=== PATIENT | male | born 1950 | race Caucasian/White ===

== ENCOUNTER 2021-03-25 08:33 | Outpatient (REF) | payer MEDICARE, SELFPAY ==
[2021-03-25 16:38] LABS: Abs Immature Grans 0.04 10^3/uL (0.0-0.06); Absolute Basophil Count 0.01 10^3/uL (0.0-0.2); Absolute Eosinophil Count 0.04 10^3/uL (0.0-0.7); Absolute Lymphocyte Count 1.03 10^3/uL (1.2-3.4); Absolute Monocyte Count 0.61 10^3/uL (0.1-0.8); Absolute Neutrophil Count 7.84 10^3/uL (1.2-6.7); Basophils % 0.1; Eosinophils % 0.4; HCT 45.5 % (40.0-50.0); Immature Grans % 0.4; Lymphocytes % 10.8; MCV 87.8 fL (80-95); Monocytes % 6.4; Neutrophils % 81.9; Nucleated RBC 0 %; Platelet Count 276 10^3/uL (130-400); RBC 5.18 10^6/uL (4.36-5.78); RDW 12.3 % (11.8-14.1); RDW-SD 40.1 fL; WBC 9.57 10^3/uL (4.4-10.8)
[2021-03-25 16:41] LABS: ALT 265 U/L (16-63); AST 87 U/L (15-37); Albumin 2.9 g/dL (3.4-5.0); Alkaline Phosphatase 76 U/L (46-116); Anion Gap 7.1 mmol/L (3-11); BUN 33 mg/dL (7-18); Bilirubin, Total 0.7 mg/dL (0.2-1.0); CO2 32.9 mmol/L (21.0-32.0); CREATININE 1.4 mg/dL (0.70-1.30); Calcium 8.7 mg/dL (8.5-10.1); Chloride 99 mmol/L (98-107); Glucose 165 mg/dL (74-106); Magnesium 1.9 mg/dL (1.8-2.4); Potassium 3.4 mmol/L (3.5-5.1); Sodium 139 mmol/L (136-145); Total Protein 6.2 g/dL (6.4-8.2)
== END 2021-03-26 09:09 | disposition home or self-care (01) ==
LOC: LBN 08:33
PROVIDERS: PCP Nurse Practitioner Family; Visit Provider Nurse Practitioner Family
DX: C02.9 Malignant neoplasm of tongue, unspecified (principal)
CPT/HCPCS: 80053; 83735; 85025

== ENCOUNTER 2021-04-01 02:53 | Outpatient (RCR) | payer MEDICARE, SELFPAY ==
[2021-03-21] MEDS: Normal Saline Flush 10 ML SYR IVP ×2 (09:41→14:00)
[2021-03-21 09:46] LABS: Abs Immature Grans 0.03 10^3/uL (0.0-0.06); Absolute Basophil Count 0.04 10^3/uL (0.0-0.2); Absolute Eosinophil Count 0.09 10^3/uL (0.0-0.7); Absolute Lymphocyte Count 1.23 10^3/uL (1.2-3.4); Absolute Monocyte Count 1.03 10^3/uL (0.1-0.8); Absolute Neutrophil Count 10.95 10^3/uL (1.2-6.7); Basophils % 0.3; Eosinophils % 0.7; HCT 47.3 % (40.0-50.0); HGB 15.9 g/dL (13.5-17.5); Immature Grans % 0.2; Lymphocytes % 9.2; MCH 28.9 pg (27.0-33.0); MCHC 33.6 % (32.0-36.0); MCV 85.8 fL (80-95); MPV 9.7 fL (8.0-11.0); Monocytes % 7.7; Neutrophils % 81.9; Nucleated RBC 0 %; Platelet Count 310 10^3/uL (130-400); RBC 5.51 10^6/uL (4.36-5.78); RDW 12.4 % (11.8-14.1); RDW-SD 38.8 fL; WBC 13.37 10^3/uL (4.4-10.8)
[2021-03-21 09:51] LABS: ALT 87 U/L (16-63); AST 41 U/L (15-37); Albumin 3.3 g/dL (3.4-5.0); Alkaline Phosphatase 82 U/L (46-116); Anion Gap 3.4 mmol/L (3-11); BUN 18 mg/dL (7-18); Bilirubin, Total 0.9 mg/dL (0.2-1.0); CO2 32.6 mmol/L (21.0-32.0); CREATININE 1.3 mg/dL (0.70-1.30); Calcium 9.9 mg/dL (8.5-10.1); Chloride 101 mmol/L (98-107); Estimated GFR 54.57 (mL/min/1.73m2); Glucose 126 mg/dL (74-106); Magnesium 2.2 mg/dL (1.8-2.4); Potassium 4.1 mmol/L (3.5-5.1); Sodium 137 mmol/L (136-145); Total Protein 7.2 g/dL (6.4-8.2)
[2021-04-01] MEDS: Normal Saline Flush 10 ML SYR IVP (09:04)
[2021-04-01 09:13] LABS: Abs Immature Grans 0.02 10^3/uL (0.0-0.06); Absolute Basophil Count 0.01 10^3/uL (0.0-0.2); Absolute Eosinophil Count 0.01 10^3/uL (0.0-0.7); Absolute Lymphocyte Count 0.72 10^3/uL (1.2-3.4); Absolute Monocyte Count 0.45 10^3/uL (0.1-0.8); Absolute Neutrophil Count 5.77 10^3/uL (1.2-6.7); Basophils % 0.1; Eosinophils % 0.1; HCT 44.3 % (40.0-50.0); HGB 14.8 g/dL (13.5-17.5); Immature Grans % 0.3; Lymphocytes % 10.3; MCH 29.1 pg (27.0-33.0); MCHC 33.4 % (32.0-36.0); MCV 87.2 fL (80-95); MPV 9.3 fL (8.0-11.0); Monocytes % 6.4; Neutrophils % 82.8; Nucleated RBC 0 %; Platelet Count 202 10^3/uL (130-400); RBC 5.08 10^6/uL (4.36-5.78); RDW 12.1 % (11.8-14.1); WBC 6.98 10^3/uL (4.4-10.8)
[2021-04-01 09:29] LABS: ALT 733 U/L (16-63); AST 220 U/L (15-37); Albumin 3.1 g/dL (3.4-5.0); Alkaline Phosphatase 80 U/L (46-116); Anion Gap 8.4 mmol/L (3-11); BUN 27 mg/dL (7-18); Bilirubin, Total 0.9 mg/dL (0.2-1.0); CO2 32.6 mmol/L (21.0-32.0); CREATININE 1.8 mg/dL (0.70-1.30); Calcium 8.7 mg/dL (8.5-10.1); Chloride 100 mmol/L (98-107); Estimated GFR 37.49 (mL/min/1.73m2); Glucose 110 mg/dL (74-106); Magnesium 1.3 mg/dL (1.8-2.4); Potassium 3.5 mmol/L (3.5-5.1); Sodium 141 mmol/L (136-145); Total Protein 6.5 g/dL (6.4-8.2)
== END 2021-04-03 23:59 | disposition home or self-care (01) ==
LOC: INF 02:53
PROVIDERS: Visit Provider Nurse Practitioner Family
DX: C02.9 Malignant neoplasm of tongue, unspecified (principal); Z45.2 Encounter for adjustment and management of vascular access device
CPT/HCPCS: 36591; 80053; 83735; 85025

== ENCOUNTER 2021-04-29 01:36 | Outpatient (RCR) | payer MEDICARE, SELFPAY ==
[2021-04-09 07:35] LABS: Abs Immature Grans 0.03 10^3/uL (0.0-0.06); Absolute Basophil Count 0.01 10^3/uL (0.0-0.2); Absolute Lymphocyte Count 0.32 10^3/uL (1.2-3.4); Absolute Monocyte Count 0.35 10^3/uL (0.1-0.8); Absolute Neutrophil Count 7.07 10^3/uL (1.2-6.7); Basophils % 0.1; HCT 41.1 % (40.0-50.0); HGB 13.7 g/dL (13.5-17.5); Immature Grans % 0.4; Lymphocytes % 4.1; MCHC 33.3 % (32.0-36.0); MCV 86.9 fL (80-95); MPV 9.4 fL (8.0-11.0); Monocytes % 4.5; Neutrophils % 90.9; Nucleated RBC 0 %; Platelet Count 175 10^3/uL (130-400); RBC 4.73 10^6/uL (4.36-5.78); RDW 12.8 % (11.8-14.1); RDW-SD 39.8 fL; WBC 7.78 10^3/uL (4.4-10.8)
[2021-04-09 07:50] LABS: ALT 325 U/L (16-63); AST 78 U/L (15-37); Albumin 2.9 g/dL (3.4-5.0); Alkaline Phosphatase 98 U/L (46-116); Anion Gap 9.9 mmol/L (3-11); BUN 19 mg/dL (7-18); Bilirubin, Total 1.2 mg/dL (0.2-1.0); CO2 31.1 mmol/L (21.0-32.0); CREATININE 1.5 mg/dL (0.70-1.30); Calcium 8.6 mg/dL (8.5-10.1); Chloride 100 mmol/L (98-107); Estimated GFR 46.27 (mL/min/1.73m2); Glucose 210 mg/dL (74-106); Magnesium 1.3 mg/dL (1.8-2.4); Potassium 3.4 mmol/L (3.5-5.1); Sodium 141 mmol/L (136-145); Total Protein 6.5 g/dL (6.4-8.2)
[2021-04-09] MEDS: Normal Saline Flush 10 ML SYR IVP (07:58)
[2021-04-15] MEDS: Normal Saline Flush 10 ML SYR IVP (10:12)
[2021-04-15 10:41] LABS: Abs Immature Grans 0.01 10^3/uL (0.0-0.06); Absolute Basophil Count 0.01 10^3/uL (0.0-0.2); Absolute Eosinophil Count 0.01 10^3/uL (0.0-0.7); Absolute Lymphocyte Count 0.35 10^3/uL (1.2-3.4); Absolute Neutrophil Count 1.36 10^3/uL (1.2-6.7); Basophils % 0.5; Eosinophils % 0.5; HCT 37.6 % (40.0-50.0); HGB 12.9 g/dL (13.5-17.5); Immature Grans % 0.5; Lymphocytes % 17.2; MCH 29.3 pg (27.0-33.0); MCHC 34.3 % (32.0-36.0); MCV 85.5 fL (80-95); MPV 9.4 fL (8.0-11.0); Monocytes % 14.7; Neutrophils % 66.6; Nucleated RBC 0 %; Platelet Count 171 10^3/uL (130-400); RDW 13.2 % (11.8-14.1); RDW-SD 38.7 fL; WBC 2.04 10^3/uL (4.4-10.8)
[2021-04-15 11:04] LABS: ALT 210 U/L (16-63); AST 69 U/L (15-37); Alkaline Phosphatase 93 U/L (46-116); Anion Gap 9.5 mmol/L (3-11); BUN 17 mg/dL (7-18); Bilirubin, Total 0.8 mg/dL (0.2-1.0); CO2 32.5 mmol/L (21.0-32.0); CREATININE 1.2 mg/dL (0.70-1.30); Calcium 8.8 mg/dL (8.5-10.1); Chloride 100 mmol/L (98-107); Estimated GFR 59.86 (mL/min/1.73m2); Glucose 110 mg/dL (74-106); Magnesium 1.2 mg/dL (1.8-2.4); Potassium 3.4 mmol/L (3.5-5.1); Sodium 142 mmol/L (136-145); Total Protein 6.5 g/dL (6.4-8.2)
[2021-04-22 10:18] LABS: Abs Immature Grans 0.02 10^3/uL (0.0-0.06); Absolute Basophil Count 0.02 10^3/uL (0.0-0.2); Absolute Eosinophil Count 0.01 10^3/uL (0.0-0.7); Absolute Lymphocyte Count 0.26 10^3/uL (1.2-3.4); Absolute Monocyte Count 0.32 10^3/uL (0.1-0.8); Absolute Neutrophil Count 1.98 10^3/uL (1.2-6.7); Basophils % 0.8; Eosinophils % 0.4; HCT 36.5 % (40.0-50.0); HGB 12.6 g/dL (13.5-17.5); Immature Grans % 0.8; MCH 29.6 pg (27.0-33.0); MCHC 34.5 % (32.0-36.0); MCV 85.9 fL (80-95); MPV 9.2 fL (8.0-11.0); Monocytes % 12.3; Neutrophils % 75.7; Nucleated RBC 0 %; Platelet Count 239 10^3/uL (130-400); RBC 4.25 10^6/uL (4.36-5.78); RDW 14.2 % (11.8-14.1); RDW-SD 41.8 fL; WBC 2.61 10^3/uL (4.4-10.8)
[2021-04-22 10:36] LABS: ALT 122 U/L (16-63); AST 40 U/L (15-37); Alkaline Phosphatase 89 U/L (46-116); Anion Gap 7.6 mmol/L (3-11); BUN 12 mg/dL (7-18); Bilirubin, Total 0.8 mg/dL (0.2-1.0); CO2 32.4 mmol/L (21.0-32.0); CREATININE 1.1 mg/dL (0.70-1.30); Calcium 8.8 mg/dL (8.5-10.1); Chloride 100 mmol/L (98-107); Glucose 127 mg/dL (74-106); Magnesium 1.3 mg/dL (1.8-2.4); Potassium 3.2 mmol/L (3.5-5.1); Sodium 140 mmol/L (136-145); Total Protein 6.7 g/dL (6.4-8.2)
[2021-04-22] MEDS: Normal Saline Flush 10 ML SYR IVP (10:47)
[2021-04-29] MEDS: Normal Saline Flush 10 ML SYR IVP (09:20)
[2021-04-29 09:27] LABS: Abs Immature Grans 0.03 10^3/uL (0.0-0.06); Absolute Basophil Count 0.02 10^3/uL (0.0-0.2); Absolute Lymphocyte Count 0.27 10^3/uL (1.2-3.4); Absolute Monocyte Count 0.63 10^3/uL (0.1-0.8); Absolute Neutrophil Count 2.43 10^3/uL (1.2-6.7); Basophils % 0.6; HCT 35.6 % (40.0-50.0); HGB 12.3 g/dL (13.5-17.5); Immature Grans % 0.9; MCH 29.8 pg (27.0-33.0); MCHC 34.6 % (32.0-36.0); MCV 86.2 fL (80-95); Monocytes % 18.6; Neutrophils % 71.9; Nucleated RBC 0 %; Platelet Count 248 10^3/uL (130-400); RBC 4.13 10^6/uL (4.36-5.78); RDW 15.6 % (11.8-14.1); RDW-SD 47.1 fL; WBC 3.38 10^3/uL (4.4-10.8)
[2021-04-29 09:46] LABS: ALT 95 U/L (16-63); AST 28 U/L (15-37); Albumin 2.8 g/dL (3.4-5.0); Alkaline Phosphatase 85 U/L (46-116); Anion Gap 7.2 mmol/L (3-11); BUN 13 mg/dL (7-18); Bilirubin, Total 0.9 mg/dL (0.2-1.0); CO2 34.8 mmol/L (21.0-32.0); Calcium 8.9 mg/dL (8.5-10.1); Chloride 99 mmol/L (98-107); Glucose 134 mg/dL (74-106); Magnesium 1.2 mg/dL (1.8-2.4); Sodium 141 mmol/L (136-145); Total Protein 6.6 g/dL (6.4-8.2)
[2021-04-29 10:00] LABS: Potassium 2.9 mmol/L (3.5-5.1)
== END 2021-05-04 23:59 | disposition home or self-care (01) ==
LOC: INF 01:36
PROVIDERS: PCP Nurse Practitioner Family; Visit Provider Nurse Practitioner Family
DX: C02.9 Malignant neoplasm of tongue, unspecified (principal); Z45.2 Encounter for adjustment and management of vascular access device
CPT/HCPCS: 36591; 80053; 83735; 85025

== ENCOUNTER 2021-05-13 03:00 | Outpatient (RCR) | payer MEDICARE, SELFPAY ==
[2021-05-06 09:10] LABS: Abs Immature Grans 0.03 10^3/uL (0.0-0.06); Absolute Basophil Count 0.03 10^3/uL (0.0-0.2); Absolute Lymphocyte Count 0.34 10^3/uL (1.2-3.4); Absolute Monocyte Count 0.65 10^3/uL (0.1-0.8); Absolute Neutrophil Count 4.63 10^3/uL (1.2-6.7); Basophils % 0.5; HCT 36.1 % (40.0-50.0); HGB 12.1 g/dL (13.5-17.5); Immature Grans % 0.5; MCH 29.4 pg (27.0-33.0); MCHC 33.5 % (32.0-36.0); MCV 87.6 fL (80-95); Monocytes % 11.4; Neutrophils % 81.6; Nucleated RBC 0 %; Platelet Count 170 10^3/uL (130-400); RBC 4.12 10^6/uL (4.36-5.78); RDW 16.3 % (11.8-14.1); RDW-SD 50.7 fL; WBC 5.68 10^3/uL (4.4-10.8)
[2021-05-06] MEDS: Normal Saline Flush 10 ML SYR IVP (09:15)
[2021-05-06 09:31] LABS: ALT 81 U/L (16-63); AST 35 U/L (15-37); Albumin 2.8 g/dL (3.4-5.0); Alkaline Phosphatase 79 U/L (46-116); Anion Gap 9.8 mmol/L (3-11); BUN 13 mg/dL (7-18); Bilirubin, Total 0.8 mg/dL (0.2-1.0); CO2 31.2 mmol/L (21.0-32.0); Calcium 8.2 mg/dL (8.5-10.1); Chloride 101 mmol/L (98-107); Glucose 96 mg/dL (74-106); Magnesium 1.2 mg/dL (1.8-2.4); Potassium 3.4 mmol/L (3.5-5.1); Sodium 142 mmol/L (136-145); Total Protein 6.5 g/dL (6.4-8.2)
== END 2021-06-04 23:59 | disposition home or self-care (01) ==
LOC: INF 03:00
PROVIDERS: PCP Nurse Practitioner Family; Visit Provider Nurse Practitioner Family
DX: C01 Malignant neoplasm of base of tongue (principal); Z45.2 Encounter for adjustment and management of vascular access device
CPT/HCPCS: 36591; 80053; 83735; 85025

== ENCOUNTER 2021-07-08 11:08 | Inpatient (IN) | payer MEDICARE, SELFPAY ==
[2021-07-08] VITALS (94 sets, daily range): BP systolic 79–159; BP diastolic 51–93; PULSE 72–113; RESP 5–32; TEMP 36.3–36.6; O2SAT 77–100
--- NOTE | 2021-07-08 | DI.RAD_ITS ---
Exam(s) XR PORTABLE CHEST AP EXAM: XR PORTABLE CHEST AP CLINICAL HISTORY: leucocytosis, concern for aspiration PNA TECHNIQUE: 2D digital imaging was performed of the chest. Two images were obtained. AP views were o btained. COMPARISON: No exams were available for comparison FINDINGS: MEDIASTINUM: Normal. HEART: Normal. PULMONARY VASCULATURE: Normal. LUNGS: Clear. PLEURAL SPACE: No pleural effusion or pneumothorax. BONE:Within normal limits for the patient's age. OTHER FINDINGS:The tip of the MediPort catheter is in good position at the junction of the superior v eliseo cava and right atrium. IMPRESSION: No acute pulmonary findings. DATA REPOSITORY: RADIATION DOSE DELIVERED:
--- NOTE | 2021-07-08 11:15 | RT.EKG_ITS ---
APPROVED REPORT Exam: Resting ECG Reason for Exam: fatigue Patient Location: E HR:97 bpm ECG Measurements Heart Rate 97 AXIS DE 163 P 62 QRSd 139 QRS -80 QT 380 T 55 QTc 484 Conclusion Sinus rhythm...normal P axis, V-rate 60- 99 RBBB and LAFB...QRSd >120mS, axis(-40,240) ST elevation secondary to IVCD...Multiple VCG criteria ST elevation, consider inferior injury...ST >0.08mV, II III aVF I have reviewed and interpreted ECG and agree with software generated interpretation.
[2021-07-08] MEDS: Normal Saline-STERILE FIELD 0.9% 10 ML SYR (11:30)
--- NOTE | 2021-07-08 11:45 | W.ED.GENAD ---
Discharge Plan Disposition Patient Disposition: [facility] INPATIENT Discharge Details Clinical Impression: Hypokalemia, Hypernatremia, Hypercalcemia Admit Date/Time: 07/08/21 12:52 Admit Provider: Svetlana Stoner Attending Provider: Svetlana Stoner Primary Care Provider: Suzy Shepard ED Provider: Geri Pierce Discharge Data Discharge Date/Time-TO BE ENTERED AT DEPARTURE: 07/08/21 15:28 Medical Decision Making Guero Self is a 71-year-old man with history of tongue cancer for which he underwent chemoradiation 05/25 presenting to emergency department for lab abnormalities found on outpatient labs ordered by his oncologist, specifically hyponatremia and hypokalemia. On exam patient is chronically ill-appearing. His speech is garbled which is baseline for him. Benign cardiopulmonary exam. Concern for known electrolyte abnormalities on labs today of hyponatremia, hypercalcemia, hypokalemia. Plan for repeat labs, will treat hyponatremia with D5 water at 100 cc/h, treating hypercalcemia with calcitonin,, will replete potassium. Creatinine elevated, no need for emergent imaging, will hold CT scans at this time. Plan for admission. Labs reviewed, troponin 0 0.07. Patient without chest pain, shortness of breath. EKG shows no STEMI. Plan for admission and trend troponin, unclear significance given elevated creatinine. Medical Records Medical records reviewed: Yes I reviewed the patient's medical records. Lab Data Lab results reviewed: Yes I reviewed the patient's lab results. HPI General Mode of arrival: wheelchair. Date/Time Provider Initiated Documentation: 07/08/21 11:22. Limitations to Documentation: no limitations. Information obtained by: patient, family, RN notes reviewed and old records reviewed. HPI Narrative: Guero Self is a 71y/o man with history of tongue cancer status post chemoradiation 05/2021, status post G-tube presenting to emergency department for lab abnormalities. Patient had labs that ordered by oncology office that returned today, and patient was sent to the emergency department for hyponatremia and hypokalemia. Patient has G-tube in place and typically only takes water by mouth. Patient has a history of occultly with nausea and vomiting with full G-tube feeds, and only recently started to have a 2000 -calorie/day feeds per G-tube. Patient states that he coughed up a significant amount of thin white mucus, which has been ongoing for at least a month. Patient reports that he has had no further chemo or radiation since this past May. He reports pain in his neck that has been ongoing and unchanged for several months, denies any new pain. Denies fever, current nausea, vomiting, cough, shortness of breath, numbness, localized weakness, rash. He reports that he has felt much more generally weak than usual over the past week or so. Per patient's oncology office, they are concerned that patient may have metastatic disease, and are requesting that patient undergo CT neck/chest/abdomen/pelvis while admitted for his electrolyte derangements. Related Data Home Medications Medication Instructions Recorded Confirmed acetaminophen 500 mg capsule 500 mg PO Q6H PRN 03/21/21 07/08/21 gabapentin 300 mg tablet 300 mg PO DAILY 03/21/21 07/08/21 omeprazole magnesium 10 mg oral 20 mg PO BID #30 ea 04/09/21 07/08/21 suspension,delayed release scopolamine base 1 mg over 3 days 1 patch TRANSDERMAL Q3D #10 ea 04/09/21 07/08/21 transdermal patch ibuprofen [Advil] 600 mg PO PRN PRN 07/08/21 07/08/21 Previous Rx's Medication Instructions Recorded omeprazole magnesium 10 mg oral 20 mg PO BID #30 ea 04/09/21 suspension,delayed release scopolamine base 1 mg over 3 days 1 patch TRANSDERMAL Q3D #10 ea 04/09/21 transdermal patch Allergies Allergy/AdvReac Type Severity Reaction Status Date / Time Opioids - Morphine Analogues Allergy Verified 07/08/21 11:30 General Stated Complaint: GenMedical DILSHAD: 2 Review of Systems Narrative: Constitutional: denies fevers, reports generalized weakness, fatigue Eyes: denies eye pain ENT: denies ear pain, dental pain, reports throat/neck pain that is unchanged over the past few months Cardiovascular: denies chest pain Respiratory: denies SOB, cough GI: denies abdominal pain, vomiting, diarrhea : denies flank pain MSK: denies back pain, neck pain, arthralgias, myalgias Skin: denies rash Neuro: denies headaches, numbness, localized weakness PFSH Medical History Anxiety about health Cancer determined by biopsy of tongue Chemotherapy adverse reaction off cisplantin; then lower dose carboplantin Decreased appetite Dehydration Denial about severity of illness reported that he did not understand that tx might not cure him Drooling improved with scopolamine patch 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 Dysphagia can manage thin liquids, not much else orally has feeding tube; trying to get in >1 feed/day Elevated liver enzymes Former smoker Frequent falls Generalized weakness History of alcohol abuse sober since 1991 Hypotension Irritability and anger frustrated with duration of treatment; wants a break for oncology visits/phone calls/lab tests/imaging Neutropenia Oral pain tongue very sensitive pain also in jaw and ear, left side Tongue cancer does not want surgery under any circumstances accepting radiation and chemo Unintentional weight loss Uses feeding tube minimally using it says the feeds make him feel sick Vapes nicotine containing substance Surgical History History of laryngoscopy Family History Mother , in a care home; brandi unsure of her age at time of Dementia Father , age 53 of melanoma of his cheek/ face traumatic for Brandi who was young teen Melanoma Brother Heart disease Sister Breast cancer Daughter No problems noted. Grandson No problems noted. Social History Smoking/Tobacco Use Status: Former Tobacco Use tobacco type: cigarettes and e-cigarettes Quit Date: 03/08/21 Pack-years: 55 Tobacco: How many years used: 55 Second Hand Exposure: No Counseling given: other Details: quit vaping 2 wks before visit; quit cigs 10 yrs ago; quit chew 45 yrs ago Smoking risk assessment performed?: Yes Alcohol Intake: former Counseling given: No Details: started drinking age 5, quit age 42 Substance use type: does not use Caregiver/Support person: Yes Household members: significant other Housing: house Number of Children: 1 number of grandchildren: 1 Communication Needs: Hard of Hearing and Corrective Lenses Education Level: high school Do you need help understanding health information?: Often current occupation: works for [employer] at [employer]; hopes to return to work after tx Do you think of yourself as: straight/heterosexual Current gender identity: male What is your relationship status?: living with partner How often do you talk on the phone with friends or family?: never How often do you get together with friends or relatives?: twice per week Panel score (0-1 are the most socially isolated patients): 1 What type of physical activity do you participate in: none and sedentary lifestyle Duration: other Details: used to weight lift regularly, stopped December 2020, fatigued Frequency: other Details: will try weight lifting again, wants to be active Special bonny needs: No Agree to transfusion: Yes Drive intox or ride w/intox dedicated truck driver: No Working smoke detector in home: Yes Fire extinguisher in home: Yes Do you feel safe at home: Yes Do you feel safe in your relationship?: Yes Additional Social history: Was for 20 years until his in 2002 from ovarian cancer. Now with partner Blanca who also works at [employer]. They live together. She helps take care of him. He is convinced that he will get over this and return to work. He is adamant about no surgery. Did not discuss his CODE status yet. Would like SO Blanca to be present, too. Exam Narrative Exam Narrative: Constitutional: Chronically ill appearing appearing, pleasant, somewhat garbled speech that patient and his daughter report as baseline HENT: head atraumatic/normocephalic/normal inspection, mucous membranes moist, right-sided tongue elevation Eyes: conjunctiva normal, sclera normal, pupils 3mm b/l Neck: no stridor, normal ROM, trachea midline Resp: normal work of breathing, LCTAB Cardio: normal rate, normal rhythm, no murmur appreciated GI: abdomen soft, non-tender, non-distended Back: normal inspection, no rash Skin: warm, dry, normal color, no rash Neuro: alert, not altered, grossly non-focal, normal tone Ext: no edema, no posterior calf tenderness to palpation Psych: normal mood, normal affect, normal behavior Course Vital Signs Vital signs: Vital Signs Temperature 36.4 C L 07/08/21 11:11 Pulse 99 H 07/08/21 11:11 Respiratory Rate 14 07/08/21 11:11 Blood Pressure 139/76 07/08/21 11:11 Pulse Oximetry 98 07/08/21 11:11 Temperature 36.4 C L 07/08/21 11:11 Temperature Source Skin 07/08/21 11:11 Pulse 99 H 07/08/21 11:11 Respiratory Rate 14 07/08/21 11:11 Respiratory Effort 07/08/21 11:35 Blood Pressure 139/76 07/08/21 11:11 Pulse Oximetry 98 07/08/21 11:11 Oxygen Delivery Method Room Air 07/08/21 11:11 Oxygen Flow Rate 0 07/08/21 11:11 Pain Level 6 07/08/21 11:11
[2021-07-08 12:10] LABS: Abs Immature Grans 0.11 10^3/uL (0.0-0.06); Absolute Eosinophil Count 0.02 10^3/uL (0.0-0.7); Absolute Lymphocyte Count 0.58 10^3/uL (1.2-3.4); Basophils % 0.2; Eosinophils % 0.1; HCT 41.6 % (40.0-50.0); HGB 13.1 g/dL (13.5-17.5); Immature Grans % 0.6; Lymphocytes % 3.4; MCH 30.1 pg (27.0-33.0); MCHC 31.5 % (32.0-36.0); MCV 95.6 fL (80-95); MPV 10.2 fL (8.0-11.0); Monocytes % 9.6; Neutrophils % 86.1; Nucleated RBC 0 %; Platelet Count 323 10^3/uL (130-400); RBC 4.35 10^6/uL (4.36-5.78); RDW 12.9 % (11.8-14.1); RDW-SD 45.9 fL; WBC 17.02 10^3/uL (4.4-10.8)
[2021-07-08 12:11] LABS: Absolute Basophil Count 0.03 10^3/uL (0.0-0.2); Absolute Monocyte Count 1.63 10^3/uL (0.1-0.8); Absolute Neutrophil Count 14.65 10^3/uL (1.2-6.7)
[2021-07-08] MEDS: DEXTROSE 5%-WATER 500 ML 100 ML IV (12:19)
[2021-07-08 12:21] LABS: Diff Comment Diff Reviewed; RBC Morphology Normal
[2021-07-08] MEDS: POTASSIUM CHLORIDE 20 MEQ/100 ML BAG 50 MEQ IVPB ×3 (12:30→23:51)
[2021-07-08 12:35] LABS: ALT 45 U/L (16-63); AST 27 U/L (15-37); Albumin 2.9 g/dL (3.4-5.0); Alkaline Phosphatase 115 U/L (46-116); Anion Gap -0.6 mmol/L (3-11); BUN 60 mg/dL (7-18); Bilirubin, Total 0.4 mg/dL (0.2-1.0); CO2 42.6 mmol/L (21.0-32.0); Chloride 110 mmol/L (98-107); Glucose 141 mg/dL (74-106); Magnesium 2.3 mg/dL (1.8-2.4); Sodium 152 mmol/L (136-145); TSH (W/Ref FT4) 1.73 uIU/mL (0.36-3.74); Total Protein 7.4 g/dL (6.4-8.2)
[2021-07-08] MEDS: Calcitonin-Salmon 400 UNITS/2 ML VIAL 300 UNITS IM (12:39)
[2021-07-08 12:42] LABS: Potassium 2.8 mmol/L (3.5-5.1); Troponin I 0.07 ng/mL (<0.06)
[2021-07-08 12:43] LABS: Calcium 16.8 mg/dL (8.5-10.1)
[2021-07-08 13:02] LABS: Bilirubin Negative (Negative); Blood Trace-intact (Negative); Clarity Clear (Clear); Glucose Negative (Negative); Ketones Negative (Negative); Leukocyte Esterase Negative (Negative); Nitrite Negative (Negative); Urobilinogen 0.2 EU/dL (Up TO 0.2); pH 5.5 (5-8)
--- NOTE | 2021-07-08 13:09 | PDOC.ERCMIN ---
- If Service Date Differs Date of service: 07/08/21 Time of Service: 13:09 Care Management Initial Assess REASON FOR HOSPITALIZATION:: Severe hypercalcemia, elevated troponin, dehydration. PAST MEDICAL HISTORY/PAST SURGICAL HISTORY:: Medical History: Anxiety about health, Cancer determined by biopsy of tongue, Chemotherapy adverse reaction - off cisplantin; then lower dose carboplantin, Decreased appetite, Dehydration, Denial about severity of illness - reported that he did not understand that tx might not cure him,. Drooling - improved with scopolamine patch, Dysarthria - due to tongue cancer, Dysphagia - can manage thin liquids, not much else orally - has feeding tube; trying to get in >1 feed/day, Elevated liver enzymes, Former smoker, Frequent falls, Generalized weakness, History of alcohol abuse - sober since 1991, Hypotension, Irritability and anger - frustrated with duration of treatment; wants a break for oncology visits/phone calls/lab tests/imaging, Neutropenia, Oral pain - tongue very sensitive - pain also in jaw and ear, left side, Tongue cancer - does not want surgery under any circumstances - accepting radiation and chemo, Unintentional weight loss, Uses feeding tube - minimally using it - says the feeds make him feel sick, and Vapes nicotine containing substance. Surgical History: History of laryngoscopy. PREVIOUS FUNCTIONAL STATUS/SOCIAL/FAMILY SUPPORTS:: Guero lives in [place], [place], with Blanca, his significant other. Prior to becoming too ill to work, he was employed at the [employer] at [place] where he did a little bit of everything. He shares that Blanca is the head manager of application development at [employer]. Guero has a daughter who resides in [place]. He also has a sister but he states he has not spoken to her in a while and he has no idea where she is. His partner Blanca is his primary source of support. She helps care for him and he says he would have a long time ago if it wasn't for her. CURRENT FUNCTIONAL STATUS:: Guero is lying in bed when CM comes to meet with him. He readily answers questions asked of him but shares his memory is not the best. His speech is at times difficult to understand due to the tongue cancer. ADVANCE DIRECTIVES:: None on file; per Blanca patient has the form at home but has refused to complete it. Has patient been provided with info about the portal/API?: No Did the patient sign up for the portal?: No CODE STATUS:: Full Code INSURANCE COVERAGE / FINANCIAL ISSUES:: Medicare. CURRENT HOME/COMMUNITY SERVICES/EQUIPMENT:: Guero is receiving treatment at the [facility]. His last chemotherapy treatment was in May 2021. He has a port and a feeding tube. He denies any other home/community services or equipment. He was followed by palliative care but has not seen Dr. Love since May 02, 2021. PRIMARY CARE PHYSICIAN:: PCP is listed as Suzy Shepard NP, but Guero is unable to confirm PCP and his s/o Blanca does not believe he has a PCP. POTENTIAL DISCHARGE NEEDS:: Follow up appointments with PCP, oncology, palliative care, and discharge plan of care. PATIENT/FAMILY EDUCATION NEEDS:: Discharge instructions regarding medications, activity level, and follow up plan of care; discuss Ask Me Three and self management. ANTICIPATED BARRIERS TO DISCHARGE:: No anticipated barriers at this time. TRANSPORTATION:: Via private vehicle with Blanca. PLAN:: Anticipate Guero will be discharged home when medically cleared by provider. He will follow up with his PCP, [facility] and discharge plan of care as directed. His girlfriend Blanca will drive him home via private vehicle when ready. CM will continue to support Guero and any discharge planning needs.
[2021-07-08 13:10] LABS: Bacteria Negative HPF (Negative); C & S Indicated? No; Casts 3-5 Hyaline LPF (Negative); Crystals Negative HPF (Negative); Epithelial Cells Rare HPF (Negative); Mucus Negative (Negative); WBC Negative HPF (0-5)
[2021-07-08 13:23] LABS: Source Nasal/Nares
[2021-07-08 15:41] LABS: COVID-19 PCR Negative (Negative)
--- NOTE | 2021-07-08 16:11 | HPE_ITS ---
Date of service: 07/08/21 Time of Service: 16:12 Assessment and Plan Assessment and plan (1) Acute hypernatremia: Status: Acute Assessment and plan: In setting of dehydraiton. Continue D5W initiated in the ED with Q6H BMPs and neurochecks. Consulted nutrition to help determine free water requirements. (2) Hypercalcemia: Status: Acute Assessment and plan: In setting of dehydration; however, hypercalcemia of malignancy is a very real possibility. Received calcitonin in [facility] ED. Bisphosphonates contraindicated in setting of dehydration. Will recheck calciums regularly - if we find that he is still hypercalcemic post hydration, bisphosphonates will be initiated. (3) Dehydration: Status: Acute Assessment and plan: As above (4) LISSETTE (acute kidney injury): Status: Acute Assessment and plan: As above (5) Hypokalemia: Status: Acute Assessment and plan: Replete and recheck (6) Leucocytosis: Status: Acute Assessment and plan: No evidence of PNA or UTI at this time. Will not start abx - suspect hemoconcentration. (7) Tongue cancer: Status: Chronic Assessment and plan: Consult palliative care (8) Failure to thrive: Status: Acute Assessment and plan: Consult palliative care (9) DVT prophylaxis: Status: Acute Assessment and plan: Sc heparin (10) Discharge planning issues: Status: Acute Assessment and plan: Full code Admit to ICU. Total Critical Care Time 60 minutes. History of Present Illness History of Present Illness Chief Complaint: Sent to ED by oncology office for abnormal labs Narrative: Mr Self is a 71 year old male with PMHx of regionally advanced tongue base cancer s/p what was supposed to be curative chemoradiation, as well as h/o odynophagia due to mucositis/dysphagia s/p G- tube, medical noncompliance, ambulatory dysfunction who was sent over to [facility] ED from the oncology office for multiple electrolyte issues and dehydration. Specifically, he was found to have a sodium of 153, K of 2.8, calcium of 17.2 (16.8 on repeat in our ED). His Cr was 2.0 (normally 1.0). Hospitalist admission was requested for IV hydration. The patient has had difficulty with pureed food and has been coughing with thin liquids, though able to get water down. The patient had missed appointments with speech therapy to whom he is known. He does admit to not getting enough hydration/nutrition at home, though he states he has been trying. Endorses white sputum ever since the beginning of his chemo/radiation. Denies fevers, nausea, abdominal pain, urinary issues (since he started drinking more water, he states). Endorses constipation. 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 Dysphagia can manage thin liquids, not much else orally has feeding tube; trying to get in >1 feed/day Elevated liver enzymes Former smoker Frequent falls Generalized weakness History of alcohol abuse sober since 1991 Hypotension Irritability and anger frustrated with duration of treatment; wants a break for oncology visits/phone calls/lab tests/imaging Neutropenia Oral pain tongue very sensitive pain also in jaw and ear, left side Tongue cancer does not want surgery under any circumstances accepting radiation and chemo Unintentional weight loss Uses feeding tube minimally using it says the feeds make him feel sick Vapes nicotine containing substance Surgical History History of laryngoscopy Family History Mother , in a custodial; brandi unsure of her age at time of Dementia Father , age 53 of melanoma of his cheek/ face traumatic for Brandi who was young teen Melanoma Brother Heart disease Sister Breast cancer Daughter No problems noted. Grandson No problems noted. Social History Smoking/Tobacco Use Status: Former Tobacco Use tobacco type: cigarettes and e- cigarettes Quit Date: 03/08/21 Pack-years: 55 Tobacco: How many years used: 55 Second Hand Exposure: No Counseling given: other Details: quit vaping 2 wks before visit; quit cigs 10 yrs ago; quit chew 45 yrs ago Smoking risk assessment performed?: Yes Alcohol Intake: former Counseling given: No Details: started drinking age 5, quit age 42 Substance use type: does not use Caregiver/Support person: Yes Household members: significant other Housing: house Number of Children: 1 number of grandchildren: 1 Communication Needs: Hard of Hearing and Corrective Lenses Education Level: high school Do you need help understanding health information?: Often current occupation: works for [employer] at [employer]; hopes to return to work after tx Do you think of yourself as: straight/heterosexual Current gender identity: male What is your relationship status?: living with partner How often do you talk on the phone with friends or family?: never How often do you get together with friends or relatives?: twice per week Panel score (0-1 are the most socially isolated patients): 1 What type of physical activity do you participate in: none and sedentary lifestyle Duration: other Details: used to weight lift regularly, stopped December 2020, fatigued Frequency: other Details: will try weight lifting again, wants to be active Special bonny needs: No Agree to transfusion: Yes Drive intox or ride w/intox 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 Now with partner Blanca who also works at [employer]. They live together. She helps take care of him. He is convinced that he will get over this and return to work. He is adamant about no surgery. Did not discuss his CODE status yet. Would like SO Blanca to be present, too. Meds Allergies and Home Medications Allergies Allergy/AdvReac Type Severity Reaction Status Date / Time Opioids - Morphine Analogues Allergy Verified 07/08/21 11:30 Home Medications Medication Instructions Recorded Confirmed Type acetaminophen 500 mg capsule 500 mg PO Q6H PRN 03/21/21 07/08/21 History gabapentin 300 mg tablet 300 mg PO DAILY 03/21/21 07/08/21 History omeprazole magnesium 10 mg oral 20 mg PO BID #30 ea 04/09/21 07/08/21 Rx suspension,delayed release scopolamine base 1 mg over 3 days 1 patch TRANSDERMAL Q3D #10 ea 04/09/21 07/08/21 Rx transdermal patch ibuprofen [Advil] 600 mg PO PRN PRN 07/08/21 07/08/21 History Exam Narrative Exam Narrative: General: Pleasant cooperative male who is coughing while trying to drink water, A&Ox3, no dyspnea/tachypnea noted when at rest Neurological: A&Ox3, dysarthric, but no focal deficits otherwise Psychiatric: Appropriate speech pattern/content Skin: Visible skin intact HEENT: Atraumatic, normocephalic, visible submandibular mass, EOMI, dry MM, clear oropharynx on limited exam, no lymphadenopathy, goiter or JVD Cardiovascular: RRR, no m/r/g Lungs: CTAB Gastrointestinal: soft, nontender, nondistended, G-tube site c/d/i Genitourinary: deferred Extremities: trace edema BLEs, no clubbing/cyanosis, +1 pedal pulses, no lesionson B feet Results Imaging Additional studies: EKG: HR 97, sinus tach, RBBB/LAFB/diffuse ST-T changes, IVCD, no prior EKGs for comparison. CXR: No acute cardiopulmonary findings. Labs Result diagrams: 07/08/21 12:00 07/08/21 12:00 Labs: Laboratory Results - last 24 hr 07/08/21 07/08/21 07/08/21 12:00 12:00 12:50 WBC 17.02 H RBC 4.35 L Hgb 13.1 L Hct 41.6 MCV 95.6 H MCH 30.1 MCHC 31.5 L RDW 12.9 Plt Count 323 MPV 10.2 Immature Gran % 0.6 Neutrophils % 86.1 Lymphocytes % 3.4 Monocytes % 9.6 Eosinophils % 0.1 Basophils % 0.2 Nucleated RBC % 0 Absolute Neutrophils 14.65 H Absolute Lymphocytes 0.58 L Absolute Monocytes 1.63 H Absolute Eosinophils 0.02 Absolute Basophils 0.03 RBC Morphology Normal Sodium 152 H Potassium 2.8 L* Chloride 110 H Carbon Dioxide 42.6 H Anion Gap -0.6 L BUN 60 H Creatinine 2.0 H Estimated GFR/1.73 m2 33.10 Glucose 141 H Calcium 16.8 H* Magnesium 2.3 Total Bilirubin 0.4 AST 27 ALT 45 Alkaline Phosphatase 115 Troponin I 0.07 H Total Protein 7.4 Albumin 2.9 L TSH 1.73 Urine Color Yellow Urine Clarity Clear Urine pH 5.5 Ur Specific [place] 1.020 Urine Protein Negative Urine Ketones Negative Urine Blood Trace-intact H Urine Nitrite Negative Urine Bilirubin Negative Urine Urobilinogen 0.2 Ur Leukocyte Esterase Negative Urine RBC 3-5 H Urine WBC Negative Ur Epithelial Cells Rare Urine Crystals Negative Urine Bacteria Negative Urine Casts 3-5 Hyaline Urine Mucus Negative Ur Culture Indicated? No Urine Glucose Negative COVID-19 Source SARS-CoV-2 (PCR) 07/08/21 07/08/21 13:20 14:22 WBC RBC Hgb Hct MCV MCH MCHC RDW Plt Count MPV Immature Gran % Neutrophils % Lymphocytes % Monocytes % Eosinophils % Basophils % Nucleated RBC % Absolute Neutrophils Absolute Lymphocytes Absolute Monocytes Absolute Eosinophils Absolute Basophils RBC Morphology Sodium Potassium Chloride Carbon Dioxide Anion Gap BUN Creatinine Estimated GFR/1.73 m2 Glucose Calcium Magnesium Total Bilirubin AST ALT Alkaline Phosphatase Troponin I Cancelled Total Protein Albumin TSH Urine Color Urine Clarity Urine pH Ur Specific [place] Urine Protein Urine Ketones Urine Blood Urine Nitrite Urine Bilirubin Urine Urobilinogen Ur Leukocyte Esterase Urine RBC Urine WBC Ur Epithelial Cells Urine Crystals Urine Bacteria Urine Casts Urine Mucus Ur Culture Indicated? Urine Glucose COVID-19 Source Nasal/Nares SARS-CoV-2 (PCR) Negative Last Vital Signs Temp 36.4 C L 07/08/21 11:11 Pulse 90 07/08/21 15:00 Resp 21 07/08/21 15:01 BP 140/73 07/08/21 15:00 Pulse Ox 97 07/08/21 15:01
[2021-07-08] MEDS: Acetaminophen Solution 650 MG/20.3 ML CUP NG (17:58)
[2021-07-08] MEDS: Heparin 5,000 UNITS/ML VIAL 5000 UNITS SC (17:59)
[2021-07-08] MEDS: Docusate Sodium 100 MG/10 ML CUP NG (17:59)
[2021-07-08] MEDS: Normal Saline Flush 10 ML SYR IVP (18:00)
--- NOTE | 2021-07-08 18:44 | DI.VRAD_ITS ---
PROCEDURE INFORMATION: Exam: XR Chest Exam date and time: 07/08/2021 4:35 PM Age: 71 years old Clinical indication: Other: Leucocytosis, concern for aspiration pna TECHNIQUE: Imaging protocol: XR of the chest. Views: 1 view. COMPARISON: No relevant prior studies available. FINDINGS: Lungs: The lungs are well aerated without infiltrate. Pleural spaces: No pleural effusion or pneumothorax. Mediastinum: There is a normal heart size, left descending thoracic aorta and essentially midline trachea. Right chest wall MediPort present with catheter tip within the cavoatrial junction. Bones/joints: Grossly normal for patient's stated age. IMPRESSION: No acute cardiopulmonary findings. Dictated and Authenticated by: Tex Samayoa MD. Ordering:ALEN oMta MD
[2021-07-08 19:36] LABS: Anion Gap -0.6 mmol/L (3-11); BUN 55 mg/dL (7-18); CO2 42.6 mmol/L (21.0-32.0); CREATININE 1.8 mg/dL (0.70-1.30); Chloride 109 mmol/L (98-107); Estimated GFR 37.38 (mL/min/1.73m2); Glucose 146 mg/dL (74-106); Sodium 151 mmol/L (136-145)
[2021-07-08 19:41] LABS: Potassium 2.7 mmol/L (3.5-5.1)
[2021-07-08 19:42] LABS: Troponin I 0.11 ng/mL (<0.06)
--- NOTE | 2021-07-08 20:17 | W.SPSTE ---
Date of service: 07/08/21 Time of Service: 19:17 Subjective Patient assessed at bedside with RN and partner Blanca also present. Patient reports his main frustration is pain in oral cavity as well as xerostomia. Blanca reports she will likely be able to bring patient's nutrisqueeze bottle (which he has primarily been using for oral care, ie frequent baking soda+salt rinse) onto unit if traditional syringe does not help with current oral care routine while on unit. Patient is open to having COCOA POWDER MIXER OPERATOR treatment with focus on comfort and ease of communication, potential trial(s) of IDDSI Levels 4/3 consistencies with COCOA POWDER MIXER OPERATOR, and collaboration with RD. Objective Objective Referring Provider: Dr. Stoner Precautions: Full Code HPI: Pt is a 71 year old male admitted to ICU from ED by oncology office for abnormal labs, multiple electrolyte issues and dehydration; patient has regionally advanced tongue base cancer s/p what was supposed to be curative chemoradiation, as well as h/o odynophagia due to mucositis/dysphagia s/p G-tube, ambulatory dysfunction. 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 Dysphagia can manage thin liquids, not much else orally has feeding tube; trying to get in >1 feed/day Elevated liver enzymes Former smoker Frequent falls Generalized weakness History of alcohol abuse sober since 1991 Hypotension Irritability and anger frustrated with duration of treatment; wants a break for oncology visits/phone calls/lab tests/imaging Neutropenia Oral pain tongue very sensitive pain also in jaw and ear, left side Tongue cancer does not want surgery under any circumstances accepting radiation and chemo Unintentional weight loss Uses feeding tube minimally using it says the feeds make him feel sick Vapes nicotine containing substance Surgical History Laryngoscopy ([facility]) Social History/Home Situation: Pt lives in [place], [place], with Blanca, his significant other. Prior to becoming too ill to work, he was employed at the [employer] [place] where he did a little bit of everything. He shares that Blanca is the head project engineering manager at [employer]. Guero has a daughter who resides in [place]. He also has a sister but he states he has not spoken to her in a while and he has no idea where she is. His partner Blanca is his primary source of support. She helps care for him and he says he would have a long time ago if it wasn't for her. OBJECTIVE: Predisposing dysphagia risk factors: regionally advanced tongue base cancer, hx FISH FROG OR OYSTER FARMER (last txt in May 2021) Clinical signs of possible chronic dysphagia: cough with thin liquids Precipitating dysphagia risk factors / triggering event: dehydration Temp: 97.3 F Sp02: 98% RR: 14 on RA Cranial nerve exam / Oral Motor: CN V: facial sensation intact to light touch labial protrusion reduced labial coordination/ROM reduced Jaw excursion/lateralization reduced mastication DNT lingual/labial sensation appears intact, however patient continues to report pain in oral cavity CN VII: lateral sulcus residue DNT anterior spillage not observed (pt drinks from cup slowly with initial instruction) salivation reduced; significant xerostomia secondary to FISH FROG OR OYSTER FARMER to address oral cancer CN IX/X: palatal elevation -unable to view Vocal Quality -WFL taste - dysgeusia / significantly altered onset of swallow - potential delay pharyngeal residue -likely present nasopharyngeal regurgitation -denied by patient CN XII: lingual protrusion reduced lingual coordination/ROM reduced lingual residue DNT Dentition/Oral Structures/Hygiene: edentulous, patient will require assist in terms of assistive device for oral hygiene (syringe or nutrisqueeze bottle; Blanca to bring from home) Language: verbal expression/fluency, naming, repetition, auditory comprehension WFL Hearing: WFL Mental Status: AAOx3, recall of current events intact Speech: significantly reduced intelligibility s/p oral cancer Laryngeal function exam: Secretions: reduced Vocal quality: WFL MPT: DNT S/Z ratio: DNT Pitch range: WFL Cough: (volitional) perceptually WFL PO intake IDDSI 0: via cup and instruction for small sip (-) negative overt s/s aspiration Via cup sip and patient reported ?regular sip? (+) positive overt s/s aspiration, ie cough, wet VQ; patient refuses additional po trials when offered Nesbit Swallow Protocol: Unable to administer Assessment IMPRESSIONS: Patient is known to this clinician through / [facility] during most recent treatment for oral cancer; patient had follow up visit scheduled for continued COCOA POWDER MIXER OPERATOR services and VFSE/MBSS was also recommended; patient did not show for this appointment as well as multiple provider appointments related to post-FISH FROG OR OYSTER FARMER care. Discussed option for VFSE/MBSS while patient in on unit, which he seems unsure about at this time; current focus discussed with Dr. Stoner is on comfort and emotional needs, with recommendation for palliative care consult. Education provided to both patient/carepartner (Blanca) re: overt s/sx aspiration and related detention symptoms to monitor for s/p FISH FROG OR OYSTER FARMER regarding dysphagia as well as recommendations to reduce frustration related to speech impairments and/or pain with speaking (provided low tech pictorial AAC board as well as whiteboard as needed) Patient demonstrates clinical s.s of oropharyngeal dysphagia, primarily due to effects of oral cancer / recent FISH FROG OR OYSTER FARMER; dysphagia presentation is characterized by reduced lingual/labial ROM, complicated by significant ongoing xerostomia and dysgeusia, and overt s.s aspiration, particularly with larger volume of thin liquids (cough, wet VQ); patient does not demonstrate overt s.s aspiration with ?small sips? of thin liquid, and is able to follow this recommendation independently upon evaluation this evening. Patient is recommended to continue with po intake of level 0 thin liquids and trial(s) of level 4 pureed or level 3 liquidized/moderately thick per his tolerance (reports dysgeusia is main barrier at this time from continuing to trial modified solid textures, and currently refuses this during evaluation today). Per motivational interview, patient is, however, open to additional trials of level 4 pureed and/or level 3 liquidized/moderately thick with COCOA POWDER MIXER OPERATOR to address potential change(s) in taste and to reduce likelihood of further pharyngeal disuse atrophy. Recommendations reviewed with Dr. Stoner and hospital staff pharmacist this evening. Patient is at moderate risk for aspiration-related pulmonary complication, given current dysphagia presentation, need for assistive devices for oral care/feeding, reported difficulties with recalling frequency of thorough oral care when in home environment, and presumed reduced immunocompetence s/p FISH FROG OR OYSTER FARMER. Recommendations: Instrumentation: TBD pending ongoing patient interview Diet Texture Modification(s): IDDSI Levels: 0 - thin liquid 4/3 - pureed or liquidized solids/moderately thickened liquids per patient tolerance Medication Intake: Via Tube; alter medications only as advised by MD or Pharmacist RISK MANAGEMENT: Oral hygiene q4h/every 4 hours and before/after PO intake on all oral structures as tolerated suction PRN HOB upright as tolerated; upright for all PO intake. Encourage physical mobility as tolerated. Level of Assistance/Supervision: Independent Strategies/Adaptations/Assistive Equipment: N/A Posture/Positioning Needs: Encourage gentle throat clear and re-swallow prior to reclining to reduce suspected pharyngeal stasis Maintain upright position at least 30 minutes after meals Sleep with head of bed elevated to reduce likelihood of nocturnal reflux Specialist referrals: Palliative Care Plan COCOA POWDER MIXER OPERATOR to follow while on unit, continue to assess appropriateness for COCOA POWDER MIXER OPERATOR intervention while on unit, provide education/counseling as appropriate with patient and carepartner also present; recommend 3x/week or PRN while on unit until goals are met for appropriate d/c from COCOA POWDER MIXER OPERATOR services, follow up with COCOA POWDER MIXER OPERATOR via [facility] as appropriate. Corn Press Operator Goals: Patient will demonstrate tolerance of least restrictive oral diet to support nutrition/hydration needs in collaboration with RD/medical team while on unit Short Term Goals: Patient will continue to demonstrate negative overt s/sx aspiration with IDDSI level 0 thin liquids and independent use of effective strategies (ie small sips) in 10/10 opportunities while on unit Patient will demonstrate negative overt s/sx aspiration with IDDSI level 4 pureed solids and/or level 3 liquidized solids / moderately thickened liquids 10/10 opportunities and with assist as needed for oral placement while on unit Patient/carepartner/staff will demonstrate comprehension re: effective strategies for continued quality of life in context of dysphagia, including methods of preparation for modified textures per IDDSI guidelines prior to discharge from unit COCOA POWDER MIXER OPERATOR CPT Code: 15614 Clinical Swallowing Evaluation Coding
[2021-07-08] MEDS: Normal Saline 1,000 ML 300 ML IV ×2 (20:37→23:51)
--- NOTE | 2021-07-08 21:10 | W.PM.PROGNOT ---
Date of Service Date of service: 07/08/21 Time of Service: 21:10 Subjective Subjective Interval history since last seen: Repeat Calcium unchanged at 17. Have increased IVF to NS @300/hr and ordered Zoledronic acid 4 mg IV. Received Calcitonin earlier in day -- without effect, will not repeat. Objective Last Vital Signs Temp 36.3 C L 07/08/21 16:17 Pulse 75 07/08/21 17:15 Resp 14 07/08/21 20:00 BP 159/62 H 07/08/21 17:15 Pulse Ox 77 L 07/08/21 17:30 Laboratory Results - last 24 hr 07/08/21 07/08/21 07/08/21 12:00 12:00 12:50 WBC 17.02 H RBC 4.35 L Hgb 13.1 L Hct 41.6 MCV 95.6 H MCH 30.1 MCHC 31.5 L RDW 12.9 Plt Count 323 MPV 10.2 Immature Gran % 0.6 Neutrophils % 86.1 Lymphocytes % 3.4 Monocytes % 9.6 Eosinophils % 0.1 Basophils % 0.2 Nucleated RBC % 0 Absolute Neutrophils 14.65 H Absolute Lymphocytes 0.58 L Absolute Monocytes 1.63 H Absolute Eosinophils 0.02 Absolute Basophils 0.03 RBC Morphology Normal Sodium 152 H Potassium 2.8 L* Chloride 110 H Carbon Dioxide 42.6 H Anion Gap -0.6 L BUN 60 H Creatinine 2.0 H Estimated GFR/1.73 m2 33.10 Glucose 141 H Calcium 16.8 H* Magnesium 2.3 Total Bilirubin 0.4 AST 27 ALT 45 Alkaline Phosphatase 115 Troponin I 0.07 H Total Protein 7.4 Albumin 2.9 L TSH 1.73 Urine Color Yellow Urine Clarity Clear Urine pH 5.5 Ur Specific [place] 1.020 Urine Protein Negative Urine Ketones Negative Urine Blood Trace-intact H Urine Nitrite Negative Urine Bilirubin Negative Urine Urobilinogen 0.2 Ur Leukocyte Esterase Negative Urine RBC 3-5 H Urine WBC Negative Ur Epithelial Cells Rare Urine Crystals Negative Urine Bacteria Negative Urine Casts 3-5 Hyaline Urine Mucus Negative Ur Culture Indicated? No Urine Glucose Negative COVID-19 Source SARS-CoV-2 (PCR) 07/08/21 07/08/21 07/08/21 13:20 14:22 19:14 WBC RBC Hgb Hct MCV MCH MCHC RDW Plt Count MPV Immature Gran % Neutrophils % Lymphocytes % Monocytes % Eosinophils % Basophils % Nucleated RBC % Absolute Neutrophils Absolute Lymphocytes Absolute Monocytes Absolute Eosinophils Absolute Basophils RBC Morphology Sodium Potassium Chloride Carbon Dioxide Anion Gap BUN Creatinine Estimated GFR/1.73 m2 Glucose Calcium Magnesium Total Bilirubin AST ALT Alkaline Phosphatase Troponin I Cancelled 0.11 H* Total Protein Albumin TSH Urine Color Urine Clarity Urine pH Ur Specific [place] Urine Protein Urine Ketones Urine Blood Urine Nitrite Urine Bilirubin Urine Urobilinogen Ur Leukocyte Esterase Urine RBC Urine WBC Ur Epithelial Cells Urine Crystals Urine Bacteria Urine Casts Urine Mucus Ur Culture Indicated? Urine Glucose COVID-19 Source Nasal/Nares SARS-CoV-2 (PCR) Negative 07/08/21 19:14 WBC RBC Hgb Hct MCV MCH MCHC RDW Plt Count MPV Immature Gran % Neutrophils % Lymphocytes % Monocytes % Eosinophils % Basophils % Nucleated RBC % Absolute Neutrophils Absolute Lymphocytes Absolute Monocytes Absolute Eosinophils Absolute Basophils RBC Morphology Sodium 151 H Potassium 2.7 L* Chloride 109 H Carbon Dioxide 42.6 H Anion Gap -0.6 L BUN 55 H Creatinine 1.8 H Estimated GFR/1.73 m2 37.38 Glucose 146 H Calcium 17.0 H* Magnesium Total Bilirubin AST ALT Alkaline Phosphatase Troponin I Total Protein Albumin TSH Urine Color Urine Clarity Urine pH Ur Specific [place] Urine Protein Urine Ketones Urine Blood Urine Nitrite Urine Bilirubin Urine Urobilinogen Ur Leukocyte Esterase Urine RBC Urine WBC Ur Epithelial Cells Urine Crystals Urine Bacteria Urine Casts Urine Mucus Ur Culture Indicated? Urine Glucose COVID-19 Source SARS-CoV-2 (PCR)
[2021-07-08] MEDS: Lidocaine 2% Jelly 6 ML SYR (21:42)
[2021-07-09] VITALS (70 sets, daily range): BP systolic 102–175; BP diastolic 41–83; PULSE 72–106; RESP 9–25; TEMP 35.8–36.5; O2SAT 90–99
--- NOTE | 2021-07-09 | DI.CT_ITS ---
Exam(s) CT NECK CHEST ABD PEL W EXAM: CT NECK CHEST ABD PEL W CLINICAL HISTORY: tongue cancer, eval for mets, also ?PNA TECHNIQUE: Imaging Protocol: Axial computed tomography images with coronal and sagittal reformatted images were created and reviewed CONTRAST MATERIAL: Intravenous: Omnipaque 350 Contrast volume:structured data in ml Oral: yes / no FINDINGS: Visualized orbits and orbital soft tissues: Within normal limits. Visualized paranasal sinuses: Within normal limits. Nasopharynx: Within normal limits. Oropharynx: There is marked enlargement of the tongue and heterogeneous enhancement consistent with t he patient's known tongue carcinoma. Enhancement is also noted to extend inferiorly to involve the wells prahyoid musculature, submandibular gland hypopharynx and larynx; superiorly, to involve the soft pal ate; posteriorly, to involve the epiglottis. Retropharyngeal space: Within normal limits. Parotids/submandibular: Parotid glands are unremarkable. Thyroid gland: Within normal limits. Lymphadenopathy: There is scattered lymph nodes seen along the level one to level three all measurin g less than 8 mm in short axis diameter which are physiologic in nature. Trachea: Within normal limits. Bones: Degenerative changes. Carotids/Jugular: Atherosclerosis. Soft tissues: Please see the above discussion. CHEST: Tracheobronchial tree: Patent where visualized. Pulmonary parenchyma: There is a 7 mm nodule in the right middle lobe. There are several ground-glas s nodules scattered throughout the lungs. No architectural distortion. Visualized thyroid gland: Unremarkable. Mediastinum and Nicole: There are enlarged mediastinal lymph nodes. The largest is in the subcarinal r egion and measures 2 x 2.1 cm. There is a 1.6 cm nodule in the soft tissues between the clavicles. Pleura: No effusion or pneumothorax. Heart: The heart is not dilated. Coronary artery calcification is present. No pericardial effusion. Aorta: Thoracic aorta non-dilated. Atherosclerosis. Lymph nodes: Please see the above discussion. Tubes, Catheters, and Lines: The tip of the in central venous catheter is in good position at the cav oatrial junction. Soft tissues: Unremarkable. Bones:There are lytic lesions involving several thoracic vertebral bodies. There is a large lesion in volving the T3 vertebral body which appears to extend into the spinal canal causing mild central spin al canal stenosis. There is a lesion in the T4 vertebral body without central spinal canal stenosis. There is a lytic lesion involving the spinous process of T6. No thoracic compression fracture deformi ties are seen. ABDOMEN: Liver: There are several (5-10) hypodense lesions seen within the liver. The largest measures 1.2 cm. The liver is normal density. Portal, Superior Mesenteric, and Splenic Veins: Unremarkable. Gallbladder and Biliary Tract: No radiodense calculus or dilation. Pancreas: Normal density, no abnormal calcifications or inflammatory process. Spleen: Normal. Adrenals: There is a 1.5 cm right adrenal nodule. The left adrenal gland is unremarkable. Kidneys: Normal size, contour and axis. No radiodense stones or obstructive uropathy. No masses seen. Abdominal Aorta: Abdominal portion non-dilated. Atherosclerosis. Bowel: No obstruction or bowel wall thickening. Appendix is unremarkable. Diverticulosis of the sigmo id colon, but no evidence of acute diverticulitis. There is a percutaneous gastrostomy tube. Peritoneal Cavity: No ascites, collection or mesenteric inflammatory response. No free air. Lymph Nodes: Within normal limits. Bones: Degenerative changes in the lumbar spine. Soft Tissues: Unremarkable. PELVIS: Bladder: There is a Lafleur catheter in a nondistended urinary bladder. There is diffuse thickening of the wall of the urinary bladder this may be due to underdistention, however an inflammatory/infectiou s cystitis cannot be excluded. Please correlate clinically. Reproductive Organs: Enlarged prostate gland. Lymph Nodes: Within normal limits. Bones: Degenerative changes in the spine and pelvis. IMPRESSION: 1. Enlargement and heterogeneous enhancement of the tongue consistent with the patient's known tongue carcinoma. Extensive enhancement is seen involving the or pharyngeal soft tissues hypopharynx and la rynx suspicious for extension of disease. 2. 7 mm right middle lobe pulmonary nodule. Several ground-glass nodules scattered throughout the tonie gs. These may represent metastatic deposits. An infectious/inflammatory process cannot be entirely ex cluded. 3. Osseous metastatic disease including a T3 lytic lesion which appears to cause central spinal canal stenosis. MRI is recommended for further evaluation. 4. Multiple hypodense masses within the liver suspicious for metastatic disease. 5. 1.5 cm right adrenal nodule. 6. Diffuse thickening of the wall in a nondistended bladder. While this may be due to underdistention , an infectious/inflammatory cystitis cannot be excluded. 7. Enlarged lymph nodes seen in the midline between the clavicles. 8. Results of this exam have been verbally communicated with provider. RADIATION DOSE DELIVERED: 1,752.73mGy.cm Total DLP DATA REPOSITORY: All CT scans at this facility are submitted to the National Radiology Data Registry (NRDR) Dose Index Registry (DIR) with the [employer] ([employer]). RADIATION OPTIMIZATION: All CT scans at this facility use at least one of these dose optimization te chniques: automated exposure control; mA and/or kV adjustment per patient size (includes targeted exa ms where dose is matched to clinical indication); or iterative reconstruction.
--- NOTE | 2021-07-09 | DI.US_ITS ---
APPROVED REPORT EXAM: Comprehensive 2D, Doppler, and color-flow Echocardiogram Patient Location: In-Patient Room/Bed: IBE140 [place] Supervisor: Jennifer Kuhn RDCS (AE) Indications: NSTEMI Other Information Study Quality: Fair. Technically limited study due to body habitus, inability to position patient. Conclusion Technically limited study Left ventricle appears grossly normal in size and wall thickness. Overall ejection fraction is withi n the range of normal. Unable to assess segmental wall motion The right atrium, right ventricle, and left atrium are not adequately visualized Within the limits of the study there did not appear to be any significant valvular disease Wall motion Left Ventricle The left ventricle is normal size. The overall left ventricular systolic function appears normal. The re is normal left ventricular wall thickness. Regional wall motion is not well visualized but grossly normal. There is no ventricular septal defect visualized. LVEF is 59%. Right Ventricle Right ventricle is not well visualized. Right ventricular systolic function could not be assessed. Th e RVSP is 26.1mmHg. Atria Left atrium is not well visualized. Right atrium is not well visualized. The interatrial septum is in tact with no evidence for an atrial septal defect. Aortic Valve The aortic valve is normal in structure. Aortic valve is trileaflet. There is no aortic valvular sten osis. No aortic regurgitation is present. Mitral Valve The mitral valve is normal in structure. No evidence of mitral valve stenosis. Trace mitral regurgita tion. Tricuspid Valve Tricuspid valve is not well visualized. There is no tricuspid valve stenosis. Trace tricuspid regurgi tation. Pulmonic Valve Pulmonic valve is not well visualized. There is no pulmonic valvular stenosis. There is no pulmonic v alvular regurgitation. Great Vessels The aortic root is normal in size. Ascending aorta is not well visualized. Aortic arch is not well vi sualized. IVC is normal in size and collapses >50% with inspiration. Pericardium There is no pericardial effusion. 2D Dimensions IVSD d PLAX 0.76 cm M: 0.6-1.2 LV Vol A2C d MOD 86.9 mL LVPW d PLAX 0.78 cm M: 0.6 - 1.2 LV Vol A4C d MOD 86.9 mL LVID d PLAX 4.34 cm M: 4.2 - 5.8 LV EF A4C MOD 59.9 % LVDs 3.00 cm M: 2.5 - 4.0 LV EF A2C MOD 57.3 % Ao Root d 3.06 cm M: 3.1 - 3.7 LV EF Biplane MOD 58.2 % LV EF Teichholz 58.7 % SV 52.56 mL LVEF (Silva's) 58.17 % M: 52 - 72 SV Index 28.59 mL/m2 LV Volume 69.76 mL M: 62 - 150 LV Volume Index 38.12 mL/m2 M: 34 - 74 LV Vol Biplane MOD 90.4 mL FS 30.75 % M-Mode TAPSE 2.57 cm (M/F) >1.7 LV Diastology MV E' medial 0.079 (>0.07 m/s) E/A Ratio 0.6 LV E/e MED 6.45 (<14) MV E Vmax 0.51 (0.4-1.3 m/s) MV E' lateral 0.065 (>0.1 m/s) MV A Vmax 0.85 (0.4-1.3 m/s) LV E/e LAT 7.90 (<14) MV E/A Ratio 0.59 MV E/E' medial 6.46 MV E/E' lateral 7.92 Aortic Valve LVOT Area 3.31 cm2 AoV Area Vmax 3.50 cm2 LVOT Vmax 0.83 m/s AoV Area/ BSA (Vmax) 1.90 cm2/m2 LVOT Mean Emmanuel. 0.53 m/s ATA Mean Emmanuel. 2.80 cm2 LVOT Peak Grad 2.7 mmHg ATA Mean Emmanuel. Index 1.53 cm2/m2 LVOT Mean Grad 1.3 mmHg LVOT VTI 0.144 m LVOT Diam s 2.05 cm AoV Vmax 0.78 m/s Velocity Ratio 1.06 AoV Mean Emmanuel. 0.63 m/s AoV Peak Grad 2.4 mmHg LVOT SV 47.66 mL AoV Mean Grad 1.7 mmHg AoV VTI 0.177 m AoV Area VTI 2.69 cm2 AoV Area/ BSA (VTI) 1.46 cm/m2 Mitral Valve MV DT 325 (160-240 msec) MV PHT 94 msec MV Area PHT 2.33 cm2 MV VTI 0.158 m MV Area VTI 3.02 (4.0-6.0 cm2) Pulmonary Valve PV Vmax 0.81 (0.5-1.5 m/s) RVOT Peak Gr. 1.60 mmHg PV Peak Grad 2.6 mmHg RVOT Mean Gr. 0.85 mmHg PV Mean Grad 1.5 mmHg RVOT VTI 0.119 m PV VTI 0.128 m RVOT Vmax 0.63 m/s Tricuspid Valve TR Peak Grad 23.1 mmHg TR Vmax 2.41 m/s RA Pressure 3.00 mmHg RVSP (TR) 26.1 mmHg
[2021-07-09 01:04] LABS: Anion Gap 0.8 mmol/L (3-11); BUN 51 mg/dL (7-18); CO2 40.2 mmol/L (21.0-32.0); CREATININE 1.7 mg/dL (0.70-1.30); Chloride 111 mmol/L (98-107); Estimated GFR 39.93 (mL/min/1.73m2); Glucose 106 mg/dL (74-106); Sodium 152 mmol/L (136-145)
[2021-07-09 01:05] LABS: Calcium 15.7 mg/dL (8.5-10.1)
[2021-07-09] MEDS: Normal Saline 1,000 ML 300 ML IV ×2 (02:44→06:24)
[2021-07-09] MEDS: Heparin 5,000 UNITS/ML VIAL 5000 UNITS SC ×2 (06:23→18:26)
--- NOTE | 2021-07-09 07:04 | W.PULMCC ---
General Date of Service Date of service: 07/09/21 Time of Service: 07:15 Reason for Admission to ICU: Hypercalcermia, hypernatremia Assessment and Plan Assessment and plan (1) LISSETTE (acute kidney injury): Status: Acute (2) Hypokalemia: Status: Acute (3) Hypercalcemia: Status: Acute (4) Acute hypernatremia: Status: Acute (5) Tongue cancer: Status: Chronic (6) Leucocytosis: Status: Acute Qualifiers: Leukocytosis type: unspecified Qualified Code(s): D72.829 - Elevated white blood cell count, unspecified (7) Troponin level elevated: Status: Acute Assessment and plan: This is a 71-year-old man who has a medical history of tongue cancer status post therapy completed May 2021 who presents after abnormal outpatient lab studies significant for severe hyper calcium Digna as well as acute hypernatremia. He was admitted and started initially on D5 water which did start bringing the stone out however did not affect the calcium and was switched to normal saline overnight which ultimately did help with his calcium but increased his sodium. He was also given zoledronic acid and calcitonin overnight. The calcitonin was stopped overnight due to concerns that it wasn't working however his calcium level this morning is quite low and this is likely a result of the hydration as well as calcitonin (calcitonin causes the decrease in calcium in the first 24 h where zoledronic acid takes 48 to 72 h to have full effect). He is appearing quite stable this morning with normal vital signs and still has an elevated calcium but no symptoms of this currently. The etiology of his hypercalcemia is unknown at this time. He is fed through PEG tube and had normal amount of tube feed and free water as well as p.o. water recently which somewhat argues against a dehydration state. Recommendations Pulmonary: No acute concerns - supplemental O2 for sats >92% if needed Cardiac: Elevated troponin - some EKG changes last night, however improved on his most recent EKG - this could represent NSTEMI, however relatively modest increases - agree with obtaining echocardiogram Renal: LISSETTE - baseline Cr of 1 - improving with hydration - likely prerenal - good UOP - ordered a daily phos to be checked Hypercalcemia, possibly secondary to malignancy - switched NS at 300cc/hr to plasmalyte 200cc/hr - recommend restarting calcitonin - s/p zolendronic acid - recommend measuring 25-OH vit D total, vit d 1,25-dihydr., PTH, PTH-rp - TSH is normal Hypernatremia - avoid normal saline - receiving plasmalyte (NA content of 140, so will still lower his Na) - if next Na is not improved, can increase free water in PEG tube from a total of 880cc to 1000cc Hypokalemia - continue to replete to 4.0 as able Hyperchloremia - due in part to dehydration in addition to normal saline I&O: Intake & Output 07/06/21 07/07/21 07/08/21 07/09/21 23:59 23:59 23:59 23:59 Intake Total 2150 / 2390 2605 / 2605 Output Total 450 / 450 2475 / 2475 Balance 1700 / 1940 130 / 130 Weight 70.7 kg 74.4 kg Daily Fluid Goal:: Positive GI Nutrition: PEG tube - ok to continue PEG tube feeds with free water - ok for water PO as he does at home - avoid calcium containing foods and vitamin D - nutrition consulted Date of Last Bowel Movement: 07/08/21 Infectious Disease: No acute concerns Hematologic: Anemia - no acute concerns - monitor Tongue cancer cT4a N2c M0, p16(-) - patient oncologist, Dr. Tristan recommends CT neck, chest, abdomen and pelvis to help delineate sites of disease, so will arrange for this Neurologic: Confusion - likely 2/2 hypercalcemia - delerium prevention - light during day, dark at night, no TV and quiet at night, etc Endocrine: No acute concerns Lines: Port PEG tube Lafleur Prophylaxis: heparin for dvt ppx started PPI IV as he take omeprazole as a home med Code Status: Resuscitation Status Full Code Subjective Critical and life-threatening events over the past 24 hours: This is a 71-year-old gentleman with a significant history of tongue cancer ([id number] M0, p16(-)) status post treatment most recently finished in May 2021 with cisplatin and radiation. He had outpatient blood work completed and based on these results was told to report to the emergency department. He was found to have severe hypercalcemia in addition to hypernatremia and an LISSETTE. He was admitted to the ICU for further management of these. He is followed by Dr. 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 Dr. Miner mentions that when stable for discharge he could follow up with discussion of palliative systemic therapy. On my assessment today the patient states he is feeling okay although is still somewhat confused. He is weak and complains of some right-sided pleuritic chest pain that is not new. He is accompanied by his significant other who assists with the history gathering. He denies headache, nausea, vomiting. The patient is fed by a PEG tube and had his usual formula and amount of tube feeds. He also have been receiving a typical amount of free water in the tube as well as orally. Exam Const General: no acute distress Nutritional Appearance: well nourished [facility] Head: normocephalic Ears: external ears normal and no periauricular adenopathy General nose exam: nasal mucous membranes and turbinates normal Face and sinus: sinuses nontender Mouth: oropharynx normal and moist mucous membranes Teeth and gingiva: dentition normal Eyes General: appearance normal, both eyes and all related structures Pupils: PERRL Neck Neck: normal visual inspection and no lymphadenopathy Chest Chest: normal inspection of the chest Resp Effort & Inspection: normal respiratory effort Auscultation: clear to auscultation bilaterally, no rales, no rhonchi and no wheezes Cardio Rate: regular rate Rhythm: regular rhythm Heart Sounds: S1 normal, S2 normal and no murmurs Pulses: radial pulses present bilaterally GI Inspection: normal to inspection Palpation: soft Skin General skin exam: no rashes or lesions noted Neuro General: patient alert, patient awake and patient oriented x3 Extrem General: no clubbing, cyanosis or edema Psych Mental Status: mental status grossly normal Affect: normal affect Attitude: cooperative Most Recent VS/Results Last Vital Signs Temp 36.2 C L 07/09/21 03:16 Pulse 96 H 07/09/21 04:00 Resp 13 07/09/21 05:30 BP 135/66 07/09/21 04:00 Pulse Ox 95 07/09/21 05:30 Laboratory Results - last 24 hr 07/08/21 07/08/21 07/08/21 12:00 12:00 12:10 WBC 17.02 H RBC 4.35 L Hgb 13.1 L Hct 41.6 MCV 95.6 H MCH 30.1 MCHC 31.5 L RDW 12.9 Plt Count 323 MPV 10.2 Immature Gran % 0.6 Neutrophils % 86.1 Lymphocytes % 3.4 Monocytes % 9.6 Eosinophils % 0.1 Basophils % 0.2 Nucleated RBC % 0 Absolute Neutrophils 14.65 H Absolute Lymphocytes 0.58 L Absolute Monocytes 1.63 H Absolute Eosinophils 0.02 Absolute Basophils 0.03 RBC Morphology Normal VBG Lactate Cancelled Sodium 152 H Potassium 2.8 L* Chloride 110 H Carbon Dioxide 42.6 H Anion Gap -0.6 L BUN 60 H Creatinine 2.0 H Estimated GFR/1.73 m2 33.10 Glucose 141 H Calcium 16.8 H* Magnesium 2.3 Total Bilirubin 0.4 AST 27 ALT 45 Alkaline Phosphatase 115 Troponin I 0.07 H Total Protein 7.4 Albumin 2.9 L TSH 1.73 Urine Color Urine Clarity Urine pH Ur Specific Hurley Urine Protein Urine Ketones Urine Blood Urine Nitrite Urine Bilirubin Urine Urobilinogen Ur Leukocyte Esterase Urine RBC Urine WBC Ur Epithelial Cells Urine Crystals Urine Bacteria Urine Casts Urine Mucus Ur Culture Indicated? Urine Glucose COVID-19 Source SARS-CoV-2 (PCR) 07/08/21 07/08/21 07/08/21 12:50 13:20 14:22 WBC RBC Hgb Hct MCV MCH MCHC RDW Plt Count MPV Immature Gran % Neutrophils % Lymphocytes % Monocytes % Eosinophils % Basophils % Nucleated RBC % Absolute Neutrophils Absolute Lymphocytes Absolute Monocytes Absolute Eosinophils Absolute Basophils RBC Morphology VBG Lactate Sodium Potassium Chloride Carbon Dioxide Anion Gap BUN Creatinine Estimated GFR/1.73 m2 Glucose Calcium Magnesium Total Bilirubin AST ALT Alkaline Phosphatase Troponin I Cancelled Total Protein Albumin TSH Urine Color Yellow Urine Clarity Clear Urine pH 5.5 Ur Specific Hurley 1.020 Urine Protein Negative Urine Ketones Negative Urine Blood Trace-intact H Urine Nitrite Negative Urine Bilirubin Negative Urine Urobilinogen 0.2 Ur Leukocyte Esterase Negative Urine RBC 3-5 H Urine WBC Negative Ur Epithelial Cells Rare Urine Crystals Negative Urine Bacteria Negative Urine Casts 3-5 Hyaline Urine Mucus Negative Ur Culture Indicated? No Urine Glucose Negative COVID-19 Source Nasal/Nares SARS-CoV-2 (PCR) Negative 07/08/21 07/08/21 07/09/21 19:14 19:14 00:40 WBC RBC Hgb Hct MCV MCH MCHC RDW Plt Count MPV Immature Gran % Neutrophils % Lymphocytes % Monocytes % Eosinophils % Basophils % Nucleated RBC % Absolute Neutrophils Absolute Lymphocytes Absolute Monocytes Absolute Eosinophils Absolute Basophils RBC Morphology VBG Lactate Sodium 151 H 152 H Potassium 2.7 L* 3.0 L Chloride 109 H 111 H Carbon Dioxide 42.6 H 40.2 H Anion Gap -0.6 L 0.8 L BUN 55 H 51 H Creatinine 1.8 H 1.7 H Estimated GFR/1.73 m2 37.38 39.93 Glucose 146 H 106 Calcium 17.0 H* 15.7 H* Magnesium Total Bilirubin AST ALT Alkaline Phosphatase Troponin I 0.11 H* Total Protein Albumin TSH Urine Color Urine Clarity Urine pH Ur Specific [place] Urine Protein Urine Ketones Urine Blood Urine Nitrite Urine Bilirubin Urine Urobilinogen Ur Leukocyte Esterase Urine RBC Urine WBC Ur Epithelial Cells Urine Crystals Urine Bacteria Urine Casts Urine Mucus Ur Culture Indicated? Urine Glucose COVID-19 Source SARS-CoV-2 (PCR) Review of Systems All systems reviewed & are unremarkable except as noted in HPI and below Time spent with patient Time spent in Critical Care: 45 Time spent in Critical care included: Coordination of care, Chart review, Documenting critically ill care, Time at immediate bedside, Discussing critically ill care with other medical staff and Discussing care with family members
[2021-07-09 07:22] LABS: Abs Immature Grans 0.11 10^3/uL (0.0-0.06); Absolute Basophil Count 0.02 10^3/uL (0.0-0.2); Absolute Eosinophil Count 0.03 10^3/uL (0.0-0.7); Absolute Lymphocyte Count 0.49 10^3/uL (1.2-3.4); Absolute Monocyte Count 0.98 10^3/uL (0.1-0.8); Basophils % 0.1; Eosinophils % 0.2; HGB 12.5 g/dL (13.5-17.5); Immature Grans % 0.7; Lymphocytes % 3.2; MCH 30.2 pg (27.0-33.0); MCHC 31.3 % (32.0-36.0); MCV 96.6 fL (80-95); MPV 10.4 fL (8.0-11.0); Monocytes % 6.4; Neutrophils % 89.4; Nucleated RBC 0 %; Platelet Count 309 10^3/uL (130-400); RBC 4.14 10^6/uL (4.36-5.78); RDW 12.9 % (11.8-14.1); RDW-SD 46.3 fL; WBC 15.31 10^3/uL (4.4-10.8)
[2021-07-09 07:25] LABS: Absolute Neutrophil Count 13.69 10^3/uL (1.2-6.7)
[2021-07-09 07:41] LABS: Anion Gap 0.2 mmol/L (3-11); BUN 44 mg/dL (7-18); CO2 38.8 mmol/L (21.0-32.0); CREATININE 1.5 mg/dL (0.70-1.30); Chloride 118 mmol/L (98-107); Estimated GFR 46.13 (mL/min/1.73m2); Glucose 88 mg/dL (74-106); Magnesium 1.9 mg/dL (1.8-2.4)
--- NOTE | 2021-07-09 07:45 | RT.EKG_ITS ---
APPROVED REPORT Exam: Resting ECG Reason for Exam: NSTEMI Patient Location: I HR:81 bpm ECG Measurements Heart Rate 81 AXIS IN 164 P 39 QRSd 142 QRS -63 QT 401 T 55 QTc 466 Conclusion Sinus rhythm...normal P axis, V-rate 60- 99 RBBB and LAFB...QRSd >120mS, axis(-40,240)
[2021-07-09 07:46] LABS: Sodium 157 mmol/L (136-145)
[2021-07-09 07:47] LABS: Calcium 14.7 mg/dL (8.5-10.1); Potassium 2.7 mmol/L (3.5-5.1); Troponin I 0.13 ng/mL (<0.06)
--- NOTE | 2021-07-09 08:28 | PGE_ITS ---
Date of Service Date of service: 07/09/21 Time of Service: 11:54 Assessment and Plan Assessment and plan (1) Acute hypernatremia: Status: Acute Assessment and plan: In setting of dehydraiton. IVF changed to plasmalyte this am. Continue to monitor Q6 BMPs. Sodium is actually worse this am. Also, awaiting free water recommendations for TF by nutrition. (2) Hypercalcemia: Status: Acute Assessment and plan: In setting of dehydration; however, hypercalcemia of malignancy is a very real possibility. s/p zolendronic acid, on scheduled calcitonin. Checking Vit D levels, PTH/PTHrp . Continue IVF. Monitor Calciums Q6H. (3) Dehydration: Status: Acute Assessment and plan: As above (4) LISSETTE (acute kidney injury): Status: Acute Assessment and plan: As above Improved. (5) Hypokalemia: Status: Acute Assessment and plan: Replete and recheck (6) Leucocytosis: Status: Acute Assessment and plan: No evidence of PNA or UTI at this time. However, I am concerned about acute PE and/or PNA given high risk for aspiration, worsening leucocytosis, malignancy, elevated troponin. Obtain CTA chest (as well as the other CT neck/abdomen/pelvis recommended in [facility] oncology note). Will hold off of abx until more data available (7) Tongue cancer: Status: Chronic Assessment and plan: Consult palliative care (8) Failure to thrive: Status: Acute Assessment and plan: Consult palliative care (9) DVT prophylaxis: Status: Acute Assessment and plan: Sc heparin (10) Discharge planning issues: Status: Acute Assessment and plan: I have been unable to add elevated troponin/NSTEMI to diagnoses in [facility] due to a [facility] issue. The patient is being initiated on asa and troponins are being trended. We need to r/o PE/CHF. Echo is pending. Full code Keep in ICU. Total Critical Care Time 60 minutes. Subjective Subjective Interval history since last seen: Mr Self reports pain under his right arm pit, which is worth with inspiration. He continues to have a cough. No dizziness/nausea. Constipated. Met with palliative care - full code. Partner bought the adaptor for TF, but no TF recommendations yet available. Plasmalyte IVF started this am, per Dr Florez's recommendations. No significant events. 92% on RA. UOP adequate. Exam Narrative Exam Narrative: General: Pleasant cooperative male, coughing, dysarthric, getting an echo at the time of my exam HEENT: Atraumatic, normocephalic, visible submandibular mass, EOMI, dry MM, clear oropharynx on limited exam, no lymphadenopathy, goiter or JVD Cardiovascular: RRR, no m/r/g Lungs: rales/ronchi Gastrointestinal: soft, nontender, nondistended, G-tube site c/d/i Extremities: no edema BLEs, no clubbing/cyanosis, +1 pedal pulses, no lesionson B feet Objective Last Vital Signs Temp 36.2 C L 07/09/21 03:16 Pulse 96 H 07/09/21 04:00 Resp 13 07/09/21 05:30 BP 135/66 07/09/21 04:00 Pulse Ox 95 07/09/21 05:30 Laboratory Results - last 24 hr 07/08/21 07/08/21 07/08/21 12:00 12:00 12:10 WBC 17.02 H RBC 4.35 L Hgb 13.1 L Hct 41.6 MCV 95.6 H MCH 30.1 MCHC 31.5 L RDW 12.9 Plt Count 323 MPV 10.2 Immature Gran % 0.6 Neutrophils % 86.1 Lymphocytes % 3.4 Monocytes % 9.6 Eosinophils % 0.1 Basophils % 0.2 Nucleated RBC % 0 Absolute Neutrophils 14.65 H Absolute Lymphocytes 0.58 L Absolute Monocytes 1.63 H Absolute Eosinophils 0.02 Absolute Basophils 0.03 RBC Morphology Normal VBG Lactate Cancelled Sodium 152 H Potassium 2.8 L* Chloride 110 H Carbon Dioxide 42.6 H Anion Gap -0.6 L BUN 60 H Creatinine 2.0 H Estimated GFR/1.73 m2 33.10 Glucose 141 H Calcium 16.8 H* Magnesium 2.3 Total Bilirubin 0.4 AST 27 ALT 45 Alkaline Phosphatase 115 Troponin I 0.07 H Total Protein 7.4 Albumin 2.9 L TSH 1.73 Urine Color Urine Clarity Urine pH Ur Specific [place] Urine Protein Urine Ketones Urine Blood Urine Nitrite Urine Bilirubin Urine Urobilinogen Ur Leukocyte Esterase Urine RBC Urine WBC Ur Epithelial Cells Urine Crystals Urine Bacteria Urine Casts Urine Mucus Ur Culture Indicated? Urine Glucose COVID-19 Source SARS-CoV-2 (PCR) 07/08/21 07/08/21 07/08/21 12:50 13:20 14:22 WBC RBC Hgb Hct MCV MCH MCHC RDW Plt Count MPV Immature Gran % Neutrophils % Lymphocytes % Monocytes % Eosinophils % Basophils % Nucleated RBC % Absolute Neutrophils Absolute Lymphocytes Absolute Monocytes Absolute Eosinophils Absolute Basophils RBC Morphology VBG Lactate Sodium Potassium Chloride Carbon Dioxide Anion Gap BUN Creatinine Estimated GFR/1.73 m2 Glucose Calcium Magnesium Total Bilirubin AST ALT Alkaline Phosphatase Troponin I Cancelled Total Protein Albumin TSH Urine Color Yellow Urine Clarity Clear Urine pH 5.5 Ur Specific [place] 1.020 Urine Protein Negative Urine Ketones Negative Urine Blood Trace-intact H Urine Nitrite Negative Urine Bilirubin Negative Urine Urobilinogen 0.2 Ur Leukocyte Esterase Negative Urine RBC 3-5 H Urine WBC Negative Ur Epithelial Cells Rare Urine Crystals Negative Urine Bacteria Negative Urine Casts 3-5 Hyaline Urine Mucus Negative Ur Culture Indicated? No Urine Glucose Negative COVID-19 Source Nasal/Nares SARS-CoV-2 (PCR) Negative 07/08/21 07/08/21 07/09/21 19:14 19:14 00:40 WBC RBC Hgb Hct MCV MCH MCHC RDW Plt Count MPV Immature Gran % Neutrophils % Lymphocytes % Monocytes % Eosinophils % Basophils % Nucleated RBC % Absolute Neutrophils Absolute Lymphocytes Absolute Monocytes Absolute Eosinophils Absolute Basophils RBC Morphology VBG Lactate Sodium 151 H 152 H Potassium 2.7 L* 3.0 L Chloride 109 H 111 H Carbon Dioxide 42.6 H 40.2 H Anion Gap -0.6 L 0.8 L BUN 55 H 51 H Creatinine 1.8 H 1.7 H Estimated GFR/1.73 m2 37.38 39.93 Glucose 146 H 106 Calcium 17.0 H* 15.7 H* Magnesium Total Bilirubin AST ALT Alkaline Phosphatase Troponin I 0.11 H* Total Protein Albumin TSH Urine Color Urine Clarity Urine pH Ur Specific [place] Urine Protein Urine Ketones Urine Blood Urine Nitrite Urine Bilirubin Urine Urobilinogen Ur Leukocyte Esterase Urine RBC Urine WBC Ur Epithelial Cells Urine Crystals Urine Bacteria Urine Casts Urine Mucus Ur Culture Indicated? Urine Glucose COVID-19 Source SARS-CoV-2 (PCR) 07/09/21 07/09/21 06:30 06:30 WBC 15.31 H RBC 4.14 L Hgb 12.5 L Hct 40.0 MCV 96.6 H MCH 30.2 MCHC 31.3 L RDW 12.9 Plt Count 309 MPV 10.4 Immature Gran % 0.7 Neutrophils % 89.4 Lymphocytes % 3.2 Monocytes % 6.4 Eosinophils % 0.2 Basophils % 0.1 Nucleated RBC % 0 Absolute Neutrophils 13.69 H Absolute Lymphocytes 0.49 L Absolute Monocytes 0.98 H Absolute Eosinophils 0.03 Absolute Basophils 0.02 RBC Morphology VBG Lactate Sodium 157 H* Potassium 2.7 L* Chloride 118 H Carbon Dioxide 38.8 H Anion Gap 0.2 L BUN 44 H Creatinine 1.5 H Estimated GFR/1.73 m2 46.13 Glucose 88 Calcium 14.7 H* Magnesium 1.9 Total Bilirubin AST ALT Alkaline Phosphatase Troponin I 0.13 H* Total Protein Albumin TSH Urine Color Urine Clarity Urine pH Ur Specific [place] Urine Protein Urine Ketones Urine Blood Urine Nitrite Urine Bilirubin Urine Urobilinogen Ur Leukocyte Esterase Urine RBC Urine WBC Ur Epithelial Cells Urine Crystals Urine Bacteria Urine Casts Urine Mucus Ur Culture Indicated? Urine Glucose COVID-19 Source SARS-CoV-2 (PCR)
--- NOTE | 2021-07-09 08:31 | W.PALLCONSUL ---
Date of service: 07/09/21 Time of Service: 08:32 History of Present Illness Narrative: From H and P: History of Present Illness Chief Complaint: Sent to ED by oncology office for abnormal labs Narrative: Mr Self is a 71 year old male with PMHx of regionally advanced tongue base cancer s/p what was supposed to be curative chemoradiation, as well as h/o odynophagia due to mucositis/dysphagia s/p G-tube, medical noncompliance, ambulatory dysfunction who was sent over to [facility] ED from the oncology office for multiple electrolyte issues and dehydration. Specifically, he was found to have a sodium of 153, K of 2.8, calcium of 17.2 (16.8 on repeat in our ED). His Cr was 2.0 (normally 1.0). Hospitalist admission was requested for IV hydration. The patient has had difficulty with pureed food and has been coughing with thin liquids, though able to get water down. The patient had missed appointments with speech therapy to whom he is known. He does admit to not getting enough hydration/nutrition at home, though he states he has been trying. Endorses white sputum ever since the beginning of his chemo/radiation. Denies fevers, nausea, abdominal pain, urinary issues (since he started drinking more water, he states). Endorses constipation. Interim Hx: Brandi is feeling better. His is at his side. He states that he does not feel as weak and that he can think clearer today. Hospitalist has been working diligently on correcting his hypercalcemia other electrolyte disorders Both Brandi and his wanted to get some decisions made. They were expecting my visit Assessment and Plan Assessment and plan (1) Failure to thrive: Status: Acute (2) Hypercalcemia: Status: Acute (3) Irritability and anger: Status: Acute (4) Denial about severity of illness: Status: Chronic (5) Palliative care patient: Status: Acute Assessment and plan: I did speak to Brandi and his regarding CODE STATUS. Per [facility] notes they do feel that his cancer is curative. He is improving although not doing well. He clearly let me know that he wants to be a full code, he wants CPR. His reiterated this and states that she needs him at home and she wants him to get better. They understand its a long haul I will continue to follow Brandi. Review of Systems Constitutional Constitutional: Reports body ache(s), Reports daytime sleepiness, Reports lethargy and Reports poor appetite Comments: Bradni is feeling better today compared to yesterday. 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 Dysphagia can manage thin liquids, not much else orally has feeding tube; trying to get in >1 feed/day Elevated liver enzymes Former smoker Frequent falls Generalized weakness History of alcohol abuse sober since 1991 Hypotension Irritability and anger frustrated with duration of treatment; wants a break for oncology visits/phone calls/lab tests/imaging Neutropenia Oral pain tongue very sensitive pain also in jaw and ear, left side Tongue cancer does not want surgery under any circumstances accepting radiation and chemo Unintentional weight loss Uses feeding tube minimally using it says the feeds make him feel sick Vapes nicotine containing substance Surgical History History of laryngoscopy Family History Mother , in a penitentiary; brandi unsure of her age at time of Dementia Father , age 53 of melanoma of his cheek/ face traumatic for Brandi who was young teen Melanoma Brother Heart disease Sister Breast cancer Daughter No problems noted. Grandson No problems noted. Social History Smoking/Tobacco Use Status: Former Tobacco Use tobacco type: cigarettes and e-cigarettes Quit Date: 03/08/21 Pack-years: 55 Tobacco: How many years used: 55 Second Hand Exposure: No Counseling given: other Details: quit vaping 2 wks before visit; quit cigs 10 yrs ago; quit chew 45 yrs ago Smoking risk assessment performed?: Yes Alcohol Intake: former Counseling given: No Details: started drinking age 5, quit age 42 Substance use type: does not use Caregiver/Support person: Yes Household members: significant other Housing: house Number of Children: 1 number of grandchildren: 1 Communication Needs: Hard of Hearing and Corrective Lenses Education Level: high school Do you need help understanding health information?: Often current occupation: works for [employer] at [employer]; hopes to return to work after tx Do you think of yourself as: straight/heterosexual Current gender identity: male What is your relationship status?: living with partner How often do you talk on the phone with friends or family?: never How often do you get together with friends or relatives?: twice per week Panel score (0-1 are the most socially isolated patients): 1 What type of physical activity do you participate in: none and sedentary lifestyle Duration: other Details: used to weight lift regularly, stopped December 2020, fatigued Frequency: other Details: will try weight lifting again, wants to be active Special bonny needs: No Agree to transfusion: Yes Drive intox or ride w/intox airport shuttle driver: No Working smoke detector in home: Yes Fire extinguisher in home: Yes Do you feel safe at home: Yes Do you feel safe in your relationship?: Yes Additional Social history: Was for 20 years until his in 2002 from ovarian cancer. Now with partner Blanca who also works at [employer]. They live together. She helps take care of him. He is convinced that he will get over this and return to work. He is adamant about no surgery. Did not discuss his CODE status yet. Would like SO Blanca to be present, too. Exam Narrative Exam Narrative: Brandi is lying in bed. His is at his side. He is speaking, but due to his tongue cancer it is difficult for me to understand him. His acts as an enterprise software engineer. Resp Effort & Inspection: able to speak in complete sentences (But I am not able to understand him at times) Auscultation: abnormal I/E ratio and crackles Cardio Rate: regular rate Heart Sounds: murmur Skin General skin exam: dry skin Results Last Vital Signs Temp 97.2 F L 07/09/21 03:16 Pulse 96 H 07/09/21 04:00 Resp 13 07/09/21 05:30 BP 135/66 07/09/21 04:00 Pulse Ox 95 07/09/21 05:30 Labs Result diagrams: 07/11/21 06:20 07/11/21 06:20 Labs: Laboratory Results - last 24 hr 07/08/21 07/08/21 07/08/21 12:00 12:00 12:10 WBC 17.02 H RBC 4.35 L Hgb 13.1 L Hct 41.6 MCV 95.6 H MCH 30.1 MCHC 31.5 L RDW 12.9 Plt Count 323 MPV 10.2 Immature Gran % 0.6 Neutrophils % 86.1 Lymphocytes % 3.4 Monocytes % 9.6 Eosinophils % 0.1 Basophils % 0.2 Nucleated RBC % 0 Absolute Neutrophils 14.65 H Absolute Lymphocytes 0.58 L Absolute Monocytes 1.63 H Absolute Eosinophils 0.02 Absolute Basophils 0.03 RBC Morphology Normal VBG Lactate Cancelled Sodium 152 H Potassium 2.8 L* Chloride 110 H Carbon Dioxide 42.6 H Anion Gap -0.6 L BUN 60 H Creatinine 2.0 H Estimated GFR/1.73 m2 33.10 Glucose 141 H Calcium 16.8 H* Magnesium 2.3 Total Bilirubin 0.4 AST 27 ALT 45 Alkaline Phosphatase 115 Troponin I 0.07 H Total Protein 7.4 Albumin 2.9 L TSH 1.73 Urine Color Urine Clarity Urine pH Ur Specific [place] Urine Protein Urine Ketones Urine Blood Urine Nitrite Urine Bilirubin Urine Urobilinogen Ur Leukocyte Esterase Urine RBC Urine WBC Ur Epithelial Cells Urine Crystals Urine Bacteria Urine Casts Urine Mucus Ur Culture Indicated? Urine Glucose COVID-19 Source SARS-CoV-2 (PCR) 07/08/21 07/08/21 07/08/21 12:50 13:20 14:22 WBC RBC Hgb Hct MCV MCH MCHC RDW Plt Count MPV Immature Gran % Neutrophils % Lymphocytes % Monocytes % Eosinophils % Basophils % Nucleated RBC % Absolute Neutrophils Absolute Lymphocytes Absolute Monocytes Absolute Eosinophils Absolute Basophils RBC Morphology VBG Lactate Sodium Potassium Chloride Carbon Dioxide Anion Gap BUN Creatinine Estimated GFR/1.73 m2 Glucose Calcium Magnesium Total Bilirubin AST ALT Alkaline Phosphatase Troponin I Cancelled Total Protein Albumin TSH Urine Color Yellow Urine Clarity Clear Urine pH 5.5 Ur Specific [place] 1.020 Urine Protein Negative Urine Ketones Negative Urine Blood Trace-intact H Urine Nitrite Negative Urine Bilirubin Negative Urine Urobilinogen 0.2 Ur Leukocyte Esterase Negative Urine RBC 3-5 H Urine WBC Negative Ur Epithelial Cells Rare Urine Crystals Negative Urine Bacteria Negative Urine Casts 3-5 Hyaline Urine Mucus Negative Ur Culture Indicated? No Urine Glucose Negative COVID-19 Source Nasal/Nares SARS-CoV-2 (PCR) Negative 07/08/21 07/08/21 07/09/21 19:14 19:14 00:40 WBC RBC Hgb Hct MCV MCH MCHC RDW Plt Count MPV Immature Gran % Neutrophils % Lymphocytes % Monocytes % Eosinophils % Basophils % Nucleated RBC % Absolute Neutrophils Absolute Lymphocytes Absolute Monocytes Absolute Eosinophils Absolute Basophils RBC Morphology VBG Lactate Sodium 151 H 152 H Potassium 2.7 L* 3.0 L Chloride 109 H 111 H Carbon Dioxide 42.6 H 40.2 H Anion Gap -0.6 L 0.8 L BUN 55 H 51 H Creatinine 1.8 H 1.7 H Estimated GFR/1.73 m2 37.38 39.93 Glucose 146 H 106 Calcium 17.0 H* 15.7 H* Magnesium Total Bilirubin AST ALT Alkaline Phosphatase Troponin I 0.11 H* Total Protein Albumin TSH Urine Color Urine Clarity Urine pH Ur Specific [place] Urine Protein Urine Ketones Urine Blood Urine Nitrite Urine Bilirubin Urine Urobilinogen Ur Leukocyte Esterase Urine RBC Urine WBC Ur Epithelial Cells Urine Crystals Urine Bacteria Urine Casts Urine Mucus Ur Culture Indicated? Urine Glucose COVID-19 Source SARS-CoV-2 (PCR) 07/09/21 07/09/21 06:30 06:30 WBC 15.31 H RBC 4.14 L Hgb 12.5 L Hct 40.0 MCV 96.6 H MCH 30.2 MCHC 31.3 L RDW 12.9 Plt Count 309 MPV 10.4 Immature Gran % 0.7 Neutrophils % 89.4 Lymphocytes % 3.2 Monocytes % 6.4 Eosinophils % 0.2 Basophils % 0.1 Nucleated RBC % 0 Absolute Neutrophils 13.69 H Absolute Lymphocytes 0.49 L Absolute Monocytes 0.98 H Absolute Eosinophils 0.03 Absolute Basophils 0.02 RBC Morphology VBG Lactate Sodium 157 H* Potassium 2.7 L* Chloride 118 H Carbon Dioxide 38.8 H Anion Gap 0.2 L BUN 44 H Creatinine 1.5 H Estimated GFR/1.73 m2 46.13 Glucose 88 Calcium 14.7 H* Magnesium 1.9 Total Bilirubin AST ALT Alkaline Phosphatase Troponin I 0.13 H* Total Protein Albumin TSH Urine Color Urine Clarity Urine pH Ur Specific [place] Urine Protein Urine Ketones Urine Blood Urine Nitrite Urine Bilirubin Urine Urobilinogen Ur Leukocyte Esterase Urine RBC Urine WBC Ur Epithelial Cells Urine Crystals Urine Bacteria Urine Casts Urine Mucus Ur Culture Indicated? Urine Glucose COVID-19 Source SARS-CoV-2 (PCR)
[2021-07-09] MEDS: Bisacodyl 10 MG SUPP PR (09:05)
[2021-07-09] MEDS: ELECTROLYTE-R SOLUTION 1,000 ML 200 ML IV ×3 (09:06→19:53)
[2021-07-09] MEDS: POTASSIUM CHLORIDE 20 MEQ/100 ML BAG 50 MEQ IVPB ×4 (09:08→16:18)
[2021-07-09] MEDS: Calcitonin-Salmon 400 UNITS/2 ML VIAL 300 UNITS IM ×3 (10:37→22:19)
[2021-07-09] MEDS: Docusate Sodium 100 MG/10 ML CUP NG (10:40)
[2021-07-09] MEDS: Acetaminophen Solution 650 MG/20.3 ML CUP NG (10:40)
--- NOTE | 2021-07-09 10:41 | PDOC.CMPRO ---
- If Service Date Differs Date of service: 07/09/21 Time of Service: 10:41 Care Management Progress Note S/O: Med was sitting up in bed with his partner Dulce at his bedside when CM met with him. She reports that Med is planning on being discharged home when he is medically able. Dulce inquired about getting DME at the home such as a walker, shower chair and commode. CM will ask MD for an order for a PT eval, and is hopeful Guero can get set up with a walker before he leaves. CM will also explore options for obtaining other needed equipment. Also, pt is a resident of [place] and Dulce would like to know if he should fill out [place] or [place]'s Adv. Directives? CM will continue to support. A: 71 year old male admitted to [facility] on 07/08/21 for severe hypercalcemia, elevated troponin , dyhydration, P:Anticipate Guero will be discharged home when medically cleared by provider. He will follow up with his PCP, [facility] oncology and discharge plan of care as directed. His girlfriend Blanca will drive him home via private vehicle when ready. CM will continue to support Guero and any discharge planning needs.
--- NOTE | 2021-07-09 11:04 | W.NUTCONSULT ---
Date of service: 07/09/21 Time of Service: 11:04 Nutritional Consult ASSESSMENT: Pt. with a history of tongue ca. History shows that he is having trouble taking PO and does choke, although he does not aspirate. Pt. reports he is prescribed Nutren 2.0 which he takes in boluses. He states he is not taking much of it as he is experiencing painful gastroesophageal reflux. He is prescribed Pepcid, 5 times per day. He states he does not want to take a medication 5 times per day so he does not take the Pepcid and of course, it can't work if he does not take it. His weight is down 9.8% in the past three months which is significant. He is currently 169 cm and 74.4 kg which gives him a BMI of 26.1 which is WNL for his age. Estimated energy needs are 1740 kcal/day (REE x 1.2) Estimated protein needs are 74 g to 89 g/day (1.0g-1.2 g/kg/day) Estimated fluid needs are 1740 ml/day (1 ml/kcal provided/day) NUTRITIONAL DIAGNOSIS: Moderate malnutrition in the context of acute illness as evidenced by 9.8% weight loss in three months and getting < 75% of estimated energy requirements for >7 days. (AND/ASPEN guidelines) INTERVENTION: Would recommend the following tube feed regimen to trial. Jevity 1.5 @ 97 ml/hr x 12 hours/day with a goal of cycling down to 6 to 8 hours/day if tolerated. This feeding provides 1740 kcals, 74 g protein, 24 g of fiber and 880 ml of free water. This feeding also provides 100% of RDI of vitamins and minerals. He will likely require at least an additional 860 ml of free water to maintain adequate hydration. Unsure if a consideration of changing from Pepcid to Pantroprazole would be beneficial if it is not contraindicated. MONITORING AND EVALUATION: Will monitor nutritional status and tolerance to feeding regimen. Will evaluate nutritional care plan ongoing and adjust as needed. Time Spent in Nutritional Counseling and Treatment: 15 minutes
[2021-07-09] MEDS: Normal Saline Flush 10 ML SYR IVP (12:26)
--- NOTE | 2021-07-09 12:30 | W.SPSTP ---
Date of service: 07/09/21 Time of Service: 12:30 Subjective Med was contacted at bedside today for dysphagia follow-up. His partner Blanca was not present this date. He reports performing oral care 2x today with the nutrisqueeze bottle that Blanca brought in from home. He continues to report pain in his upper right chest/shoulder area. The nurse already gave me tylenol. Interim updates: Medical team monitoring malignant etiology for abnormal labs with recommendations for updated imaging. Continued concern for high aspiration pneumonia risk, though patient refusing most PO intake (has not eaten by mouth, only water since initial GROUP MARKET[employer] VP eval). RD consulted and recommended initiation of 12 hr continuous tube feed (incl. free water) for total nutrition/hydration needs given patient's difficulty with PO intake and bolus tube feeds. Respiratory Status: Tolerating RA without s/sx dyspnea. Saturation 96%. No baseline coughing observed prior to PO intake. Mental status: AAOx3, oriented to situation, able to recall general communication and swallowing recommendations provided yesterday. Objective/Assessment/Plan Objective Treatment Techniques & Outcomes: [employer] Goals: 1. Patient will demonstrate tolerance of least restrictive oral diet to support nutrition/hydration needs in collaboration with RD/medical team while on unit Short Term Goals: 1. Patient will continue to demonstrate negative overt s/sx aspiration with IDDSI level 0 thin liquids and independent use of effective strategies (ie small sips) in 10/10 opportunities while on unit IN PROGRESS # of trials: 1 (sip via cup edge - self-fed) Via cup sip, instructed ?small sip? (+) positive for possible delayed s/s aspiration, (wet prolonged coughing). I cough like that all day. Patient refuses additional po trials (e.g., ice chips, pudding) when offered. 2. Patient will demonstrate negative overt s/sx aspiration with IDDSI level 4 pureed solids and/or level 3 liquidized solids / moderately thickened liquids 10/10 opportunities and with assist as needed for oral placement while on unit NOT ADDRESSED Patient declined any further PO trials when offered (pudding). 3. Patient/carepartner/staff will demonstrate comprehension re: effective strategies for continued quality of life in context of dysphagia, including methods of preparation for modified textures per IDDSI guidelines prior to discharge from unit NOT ADDRESSED Patient/Caregiver/Staff Education: Reviewed education r/t overt s/sx aspiration and related nursing home symptoms to monotor s/p [employer] GR[employer]ER TENDER regarding dysphagia. Reviewed recommendations to reduce frustration related to speech impairments and pain with speaking (low tech picture boardmarino). Provided recommendation to slow pace and enunciate one word at a time with pauses during communications with care staff. Assessment Minimal opportunity for PO trials this date due to patient discomfort/refusal. Despite patient report of baseline coughing, he demonstrated poorer tolerance of thin liquids (prolonged wet coughing even with small sip). Continue to recommend to continue with po intake of level 0 thin liquids and trial(s) of level 4 pureed or level 3 liquidized/moderately thick per his tolerance (reports dysgeusia is main barrier at this time from continuing to trial modified solid textures, and currently refuses this during evaluation today). Continue to consider VFSE/MBSS as able, if patient is agreeable and pending his goals related to PO intake. Patient remains at moderate-high risk for aspiration-related pulmonary complication, given current dysphagia presentation, need for assistive devices for oral care/feeding, reported difficulties with recalling frequency of thorough oral care when in home environment, and presumed reduced immunocompetence s/p [employer] GR[employer]ER TENDER. Plan Plan: [employer] VP to follow while on unit, continue to assess appropriateness for [employer] VP intervention while on unit, provide education/counseling as appropriate with patient and carepartner also present; recommend 3x/week or PRN while on unit until goals are met for appropriate d/c from GROUP MARK[employer] VP services, follow up with [employer] VP via [facility] as appropriate. Recommendations Diet: Other (4/3 - pureed or liquidized solids/moderately thickened liquids per patient tolerance) Liquids: 0-Thin Liquids Other: Medication Intake: Via Tube; alter medications only as advised by MD or Pharmacist Recommendations: Instrumentation: TBD pending ongoing patient interview RISK MANAGEMENT: Oral hygiene q4h/every 4 hours and before/after PO intake on all oral structures as tolerated suction PRN HOB upright as tolerated; upright for all PO intake. Encourage physical mobility as tolerated. Level of Assistance/Supervision: Independent Strategies/Adaptations/Assistive Equipment: N/A Posture/Positioning Needs: Encourage gentle throat clear and re-swallow prior to reclining to reduce suspected pharyngeal stasis Maintain upright position at least 30 minutes after meals Sleep with head of bed elevated to reduce likelihood of nocturnal reflux COMMUNICATION: Medical staff use picture board, white chris, and request patient speak one word at a time as necessary to decrease repetitions and frustration. Total Time Spent: 20 min CPT Code: 75082 - Dysphagia Tx Coding
[2021-07-09 12:42] LABS: Anion Gap 0.8 mmol/L (3-11); BUN 42 mg/dL (7-18); CO2 38.2 mmol/L (21.0-32.0); CREATININE 1.6 mg/dL (0.70-1.30); Chloride 120 mmol/L (98-107); Estimated GFR 42.82 (mL/min/1.73m2); Glucose 92 mg/dL (74-106); Potassium 3.1 mmol/L (3.5-5.1)
[2021-07-09 12:45] LABS: Calcium 14.3 mg/dL (8.5-10.1); Sodium 159 mmol/L (136-145)
[2021-07-09] MEDS: Omnipaque 350 MG/ML 100 ML BTL IJ (14:12)
[2021-07-09] MEDS: Normal Saline - Diluent 50 ML VIAL IV (14:12)
[2021-07-09] MEDS: Aspirin 81 MG CHEW 324 MG NG (16:00)
[2021-07-09 19:03] LABS: Anion Gap 3.8 mmol/L (3-11); BUN 38 mg/dL (7-18); CO2 35.2 mmol/L (21.0-32.0); CREATININE 1.5 mg/dL (0.70-1.30); Chloride 118 mmol/L (98-107); Estimated GFR 46.13 (mL/min/1.73m2); Glucose 79 mg/dL (74-106); Potassium 3.3 mmol/L (3.5-5.1)
[2021-07-09 19:09] LABS: Calcium 13.2 mg/dL (8.5-10.1); Sodium 157 mmol/L (136-145)
--- NOTE | 2021-07-09 22:10 | DI.VRAD_ITS ---
Addendum created by Sayda Roberts MD on 07/09/2021 10:35:25 PM EDT: I discussed case findings with Dr Clemens 07/09/2021 10:33 PM EDT. Initial report created on 07/09/2021 10:10:00 PM EDT: PROCEDURE INFORMATION: Exam: CT Neck With Contrast Exam date and time: 07/09/2021 2:12 PM Age: 71 years old Clinical indication: Other: Tongue cancer, eval for mets, also ? pna TECHNIQUE: Imaging protocol: Computed tomography images of the neck with contrast. Radiation optimization: All CT scans at this facility use at least one of these dose optimization techniques: automated exposure control; mA and/or kV adjustment per patient size (includes targeted exams where dose is matched to clinical indication); or iterative reconstruction. Contrast material: ONMIPAQUE 350; Contrast volume: 150 ml; Contrast route: INTRAVENOUS (IV); COMPARISON: CR XR PORTABLE CHEST AP 07/08/2021 5:37 PM FINDINGS: Tubes, catheters and devices: Right central line catheter noted. Nasopharynx: Unremarkable. Oropharynx: The tongue is markedly edematous and enlarged. It appears dysmorphic with significant edema. There are peripherally enhancing low-density collections at the floor of the mouth the largest measuring up to 2.1 cm on sagittal assessment. Above the hyoid bone there is a low-density collection 3.1 cm transverse. Hypopharynx: Unremarkable. Larynx: The epiglottis appears slightly thickened. There is mild irregular edema at the laryngeal level. There is some heterogeneity and right-sided hyperemia anteriorly and inferiorly, possible tumor infiltration. Retropharyngeal space: Unremarkable. Submandibular/Parotid glands: There is mild asymmetric enlargement of the right submandibular gland 2.2 by 1.8 centimetres compared to the left which appears slightly more hyperemic, 2.3 x 1.3 cm. There is interstitial edema in the perimandibular and submandibular tissues. Thyroid: Normal. No enlarged or calcified nodules. Lymph nodes: Unremarkable. No lymphadenopathy. Trachea: Visualized trachea is unremarkable. Lungs: Unremarkable as visualized. Bones/joints: There is fluid attenuation in the prevertebral space from the C2 to the C4 level, right worse than left. Cervical spondylosis present. Soft tissues: There is some soft tissue stranding in the carotid space interstitium, right slightly worse than left. There is asymmetric thickening of the right platysmas muscle. IMPRESSION: 1. Abnormal tongue findings consistent with the patient's known neoplasm. Discrete collections and heterogeneity involving the floor of the mouth could represent tumor infiltration. Pocket it abscess or seroma collections are not excludable versus necrosis associated with tumor. 2. Retropharyngeal fluid could be infected, consistent with abscess. 3. Findings of concern for laryngeal edema, possible tumor infiltration. PROCEDURE INFORMATION: Exam: CT Chest With Contrast; Diagnostic Exam date and time: 07/09/2021 2:12 PM Age: 71 years old Clinical indication: Other: Tongue cancer, eval for mets, also ? pna TECHNIQUE: Imaging protocol: Diagnostic computed tomography of the chest with contrast. Radiation optimization: All CT scans at this facility use at least one of these dose optimization techniques: automated exposure control; mA and/or kV adjustment per patient size (includes targeted exams where dose is matched to clinical indication); or iterative reconstruction. Contrast material: ONMIPAQUE 350; Contrast volume: 150 ml; Contrast route: INTRAVENOUS (IV); COMPARISON: CR XR PORTABLE CHEST AP 07/08/2021 5:37 PM FINDINGS: Tubes, catheters and devices: Right-sided Port-A-Cath in place. Lungs: There are scattered ill-defined lung opacities, metastatic versus inflammatory or infectious. There are more discrete nodular densities consistent with metastases. These include series 7, image 310 right lower lobe 5 mm. Image 364 right lower lobe, 8 mm. Slightly spiculated focus right lower lobe image 389, 11 mm as well as others. Hazy ill-defined focal pneumonitis right upper lobe series 4, image 36. Pleural spaces: Focal right mid lung pleural thickening. No pneumothorax. No pleural effusion. Heart: Unremarkable. No cardiomegaly. No pericardial effusion. Aorta: Unremarkable. No aortic aneurysm. Other arteries: Coronary artery calcifications/stents. Lymph nodes: Mild subcarinal adenopathy present. Bones/joints: There is lytic change involving T2, T4 through T7. Pattern is of concern for metastatic disease. Soft tissues: Unremarkable. IMPRESSION: 1. Concern for lung metastases. Additional ill-defined infiltrates and opacities could be metastatic versus possibly infectious or inflammatory. 2. Thoracic bone metastases. PROCEDURE INFORMATION: Exam: CT Abdomen And Pelvis With Contrast Exam date and time: 07/09/2021 2:12 PM Age: 71 years old Clinical indication: Other: Tongue cancer, eval for mets, also ? pna TECHNIQUE: Imaging protocol: Computed tomography of the abdomen and pelvis with contrast. Radiation optimization: All CT scans at this facility use at least one of these dose optimization techniques: automated exposure control; mA and/or kV adjustment per patient size (includes targeted exams where dose is matched to clinical indication); or iterative reconstruction. Contrast material: ONMIPAQUE 350; Contrast volume: 150 ml; Contrast route: INTRAVENOUS (IV); COMPARISON: CR XR PORTABLE CHEST AP 07/08/2021 5:37 PM FINDINGS: Tubes, catheters and devices: Gastrostomy tube in place. Liver: There are several low-density hepatic lesions, indeterminate of concern for metastatic disease. Gallbladder and bile ducts: Normal. No calcified stones. No ductal dilation. Pancreas: Normal. No ductal dilation. Spleen: Normal. No splenomegaly. Adrenal glands: There is an 11 mm low-density right adrenal nodule. Kidneys and ureters: Normal. No hydronephrosis. Stomach and bowel: Diverticulosis without acute diverticulitis. No abnormal bowel distention or wall edema noted. Appendix: No evidence of appendicitis. Intraperitoneal space: Unremarkable. No free air. No significant fluid collection. Vasculature: Moderate atherosclerotic change present in the vasculature. Lymph nodes: Unremarkable. No enlarged lymph nodes. Urinary bladder: Lafleur catheter present in the bladder. Reproductive: Unremarkable as visualized. Bones/joints: Subtle lucency L1 could represent bony metastasis. Soft tissues: Unremarkable. IMPRESSION: Findings of concern for liver and bone metastases. Indeterminate right adrenal nodule. Dictated and Authenticated by: Sayda Roberts MD. Ordering:ALEN Mota MD
[2021-07-10] VITALS (61 sets, daily range): BP systolic 109–157; BP diastolic 39–91; PULSE 70–106; RESP 10–28; TEMP 36.2–36.8; O2SAT 92–99
[2021-07-10 00:41] LABS: Anion Gap 3.5 mmol/L (3-11); BUN 36 mg/dL (7-18); CO2 35.5 mmol/L (21.0-32.0); CREATININE 1.5 mg/dL (0.70-1.30); Chloride 120 mmol/L (98-107); Estimated GFR 46.13 (mL/min/1.73m2); Glucose 80 mg/dL (74-106)
[2021-07-10 00:43] LABS: Calcium 12.6 mg/dL (8.5-10.1); Sodium 159 mmol/L (136-145)
[2021-07-10] MEDS: ELECTROLYTE-R SOLUTION 1,000 ML 200 ML IV (01:00)
[2021-07-10] MEDS: POTASSIUM CHLORIDE/0.45% NACL 1,000 ML 150 MEQ IV (01:27)
[2021-07-10] MEDS: Acetaminophen Solution 650 MG/20.3 ML CUP NG ×2 (02:44→10:32)
--- NOTE | 2021-07-10 03:05 | NUR.NOTE ---
0244-Tylenol 650 liquid given per feeding tube for left knee pain.
[2021-07-10] MEDS: Calcitonin-Salmon 400 UNITS/2 ML VIAL 300 UNITS IM ×3 (04:22→16:11)
[2021-07-10] MEDS: Heparin 5,000 UNITS/ML VIAL 5000 UNITS SC ×2 (05:50→17:14)
[2021-07-10 07:50] LABS: Abs Immature Grans 0.11 10^3/uL (0.0-0.06); Absolute Lymphocyte Count 0.52 10^3/uL (1.2-3.4); Absolute Monocyte Count 0.86 10^3/uL (0.1-0.8); Absolute Neutrophil Count 12.46 10^3/uL (1.2-6.7); Basophils % 0.1; Eosinophils % 0.4; HCT 37.6 % (40.0-50.0); HGB 11.5 g/dL (13.5-17.5); Immature Grans % 0.8; Lymphocytes % 3.7; MCH 29.7 pg (27.0-33.0); MCHC 30.6 % (32.0-36.0); MCV 97.2 fL (80-95); MPV 10.5 fL (8.0-11.0); Monocytes % 6.1; Neutrophils % 88.9; Nucleated RBC 0 %; Platelet Count 290 10^3/uL (130-400); RBC 3.87 10^6/uL (4.36-5.78); RDW 13.2 % (11.8-14.1); RDW-SD 47.2 fL; WBC 14.02 10^3/uL (4.4-10.8)
[2021-07-10 07:53] LABS: Absolute Basophil Count 0.01 10^3/uL (0.0-0.2); Absolute Eosinophil Count 0.06 10^3/uL (0.0-0.7)
--- NOTE | 2021-07-10 08:09 | PGE_ITS ---
Date of Service Date of service: 07/10/21 Time of Service: 12:11 Assessment and Plan Assessment and plan (1) Acute hypernatremia: Status: Acute Assessment and plan: In setting of dehydraiton. D5W initiated. Continue to monitor Q6 BMPs. (2) Hypercalcemia: Status: Acute Assessment and plan: In setting of dehydration as well as malignancy. Does have bony metastases. s/p zolendronic acid. Continue cheduled calcitonin, IVF. Awai tVit D levels, PTH/PTHrp . Monitor Calciums Q6H. (3) Dehydration: Status: Acute Assessment and plan: As above (4) LISSETTE (acute kidney injury): Status: Acute Assessment and plan: As above Improved. (5) Hypokalemia: Status: Acute Assessment and plan: Replete and recheck (6) Troponin level elevated: Status: Acute Assessment and plan: likely due to demand ischemia. Regional wall motion could not be assessed on echo. I think that the patient should pursue ischemic workup only if there is an optimistic prognosis for his disease. Continue asa. (7) Retropharyngeal abscess: Status: Suspected Assessment and plan: vs extension of tongue cancer. ENT is consulted. Images are being sent to [facility] for review as well. (8) Leucocytosis: Status: Acute Assessment and plan: Discussed with radiology: groundglass opacities could be metastatic disease vs infectious/inflammatory. Additionally, there is a concern for retropharyngeal abscess vs extension of the patient's disease into retropharyngeal/sublingual space. No major PE. Started on empiric zosyn. Monitor WBC. Obtain ENT consultation. Qualifiers: Leukocytosis type: unspecified Qualified Code(s): D72.829 - Elevated white blood cell count, unspecified (9) Tongue cancer: Status: Chronic Assessment and plan: Whlie the patient was on curative-intent chemo, his disease is metastatic and includes rib, thoracic spine mets (no evidence of cord compression), liver and possible adrenal mets. I have pushed the images to [facility] onc - will discuss prognosis. Palliative care is consulted. (10) Failure to thrive: Status: Acute Assessment and plan: Consult palliative care (11) DVT prophylaxis: Status: Acute Assessment and plan: Sc heparin (12) Discharge planning issues: Status: Acute Assessment and plan: Full code Keep in ICU. Total Critical Care Time 60 minutes. Subjective Subjective Interval history since last seen: Mr Self is bringing up thick white sputum. He reports neck/L scapular pain since coughing. C/o nausea on tube feeding rate that he was recommended by nutrition. This has been lowered to 60 mL/hr. Still nauseated. Had a BM. Denies dizziness, chest pain other than the pain in the back above, denies shortness of breath. Exam Narrative Exam Narrative: General: Pleasant cooperative male, coughing, dysarthric, brings up thick white/pinkish sputum. HEENT: Atraumatic, visible large submandibular mass, EOMI, MMM Cardiovascular: RRR, no m/r/g Lungs: CTAB Gastrointestinal: soft, nontender, nondistended Extremities: no edema BLEs, no clubbing/cyanosis, +1 pedal pulses, no lesions on B feet. Having calf spasms on my exam, relieved with extension of 1st digits on BLEs. Objective Last Vital Signs Temp 36.3 C L 07/10/21 04:40 Pulse 91 H 07/10/21 06:00 Resp 13 07/10/21 07:00 BP 126/70 07/10/21 06:00 Pulse Ox 95 07/10/21 07:00 Laboratory Results - last 24 hr 07/09/21 07/09/21 07/09/21 12:25 12:25 18:35 WBC RBC Hgb Hct MCV MCH MCHC RDW Plt Count MPV Immature Gran % Neutrophils % Lymphocytes % Monocytes % Eosinophils % Basophils % Nucleated RBC % Absolute Neutrophils Absolute Lymphocytes Absolute Monocytes Absolute Eosinophils Absolute Basophils Sodium 159 H* 157 H* Potassium 3.1 L 3.3 L Chloride 120 H 118 H Carbon Dioxide 38.2 H 35.2 H Anion Gap 0.8 L 3.8 BUN 42 H 38 H Creatinine 1.6 H 1.5 H Estimated GFR/1.73 m2 42.82 46.13 Glucose 92 79 Calcium 14.3 H* 13.2 H* Troponin I 0.10 H* 07/10/21 07/10/21 00:20 06:30 WBC 14.02 H RBC 3.87 L Hgb 11.5 L Hct 37.6 L MCV 97.2 H MCH 29.7 MCHC 30.6 L RDW 13.2 Plt Count 290 MPV 10.5 Immature Gran % 0.8 Neutrophils % 88.9 Lymphocytes % 3.7 Monocytes % 6.1 Eosinophils % 0.4 Basophils % 0.1 Nucleated RBC % 0 Absolute Neutrophils 12.46 H Absolute Lymphocytes 0.52 L Absolute Monocytes 0.86 H Absolute Eosinophils 0.06 Absolute Basophils 0.01 Sodium 159 H* Potassium 3.0 L Chloride 120 H Carbon Dioxide 35.5 H Anion Gap 3.5 BUN 36 H Creatinine 1.5 H Estimated GFR/1.73 m2 46.13 Glucose 80 Calcium 12.6 H* Troponin I Objective Narrative Objective Narrative: CT neck/chest/abdomen/pelvis: 1. Enlargement and heterogeneous enhancement of the tongue consistent with the patient's known tongue carcinoma. Extensive enhancement is seen involving the or pharyngeal soft tissues hypopharynx and larynx suspicious for extension of disease. 2. 7 mm right middle lobe pulmonary nodule. Several ground-glass nodules scattered throughout the lungs. These may represent metastatic deposits. An infectious/inflammatory process cannot be entirely excluded. 3. Osseous metastatic disease including a T3 lytic lesion which appears to cause central spinal canal stenosis. MRI is recommended for further evaluation. 4. Multiple hypodense masses within the liver suspicious for metastatic disease. 5. 1.5 cm right adrenal nodule. 6. Diffuse thickening of the wall in a nondistended bladder. While this may be due to underdistention, an infectious/inflammatory cystitis cannot be excluded. 7. Enlarged lymph nodes seen in the midline between the clavicles. 8. Results of this exam have been verbally communicated with provider. MRI T-spine: 1. Diffuse osseous metastatic disease involving the thoracic spine and vi sualized portions of the cervical spine, lumbar spine and ribs. 2. T3 lesion is noted which extends into the spinal canal but causes no significant central spinal canal stenosis. 3. No final cord compression or abnormal signal within the thoracic spinal cord. Echo: Technically limited study Left ventricle appears grossly normal in size and wall thickness. Overall ejection fraction is within the range of normal. Unable to assess segmental wall motion The right atrium, right ventricle, and left atrium are not adequately visualized Within the limits of the study there did not appear to be any significant valvular disease
[2021-07-10 08:11] LABS: PHOSPHORUS 2.2 mg/dL (2.6-4.7)
[2021-07-10 08:29] LABS: Anion Gap 6.2 mmol/L (3-11); BUN 36 mg/dL (7-18); CO2 33.8 mmol/L (21.0-32.0); CREATININE 1.5 mg/dL (0.70-1.30); Calculated LDL 64 mg/dL (<100); Chloride 119 mmol/L (98-107); Cholesterol 122 mg/dL (<200); Estimated GFR 46.13 (mL/min/1.73m2); Glucose 85 mg/dL (74-106); HDL Cholesterol 43 mg/dL (40-60); Magnesium 1.8 mg/dL (1.8-2.4); Triglyceride 78 mg/dL (<150)
[2021-07-10 08:30] LABS: Calcium 12.1 mg/dL (8.5-10.1); Potassium 2.8 mmol/L (3.5-5.1); Sodium 159 mmol/L (136-145)
--- NOTE | 2021-07-10 08:37 | PDOC.CMPRO ---
<Nitza Tang RN - Last Filed: 07/10/21 08:37> - If Service Date Differs Date of service: 07/10/21 Time of Service: 08:37 Care Management Progress Note S/O: Dulce inquired about getting DME at the home such as a walker, shower chair and commode. CM will ask for a PT eval, and is hopeful Guero can get set up with a walker prior to discharge. A: 71 year old male admitted to [facility] on 07/08/21 for severe hypercalcemia, elevated troponin , dyhydration, P:Anticipate Guero will be discharged home when medically cleared by provider. He will follow up with his PCP, [facility] oncology and discharge plan of care as directed. His girlfriend Blanca will drive him home via private vehicle when ready. CM will continue to support Guero and any discharge planning needs. <Kinza Paez - Last Filed: 07/10/21 18:15> Care Management Progress Note CM attempted to meet with Guero in the evening, he was sleeping with the lights off in his room. CM will continue to follow.
[2021-07-10] MEDS: Normal Saline Flush 10 ML SYR IVP ×2 (08:48→10:39)
[2021-07-10] MEDS: Gadoterate meglumine 20 ML VIAL 15 ML IVP (08:48)
--- NOTE | 2021-07-10 09:35 | DI.MRI_ITS ---
Exam(s) MR THORACIC SPINE WO/W EXAM: MR THORACIC SPINE WO/W CLINICAL HISTORY: Thoracic spine metastasis seen on CT. TECHNIQUE: Multiplanar multisequence MRI of the Thoracic spine was performed. CONTRAST MATERIAL: IV Contrast: 15 mL of Dotarem contrast administered. COMPARISON: CT CT NECK CHEST ABD PEL W from 07/09/2021 FINDINGS: Bones: The vertebral body heights are well maintained. Alignment is satisfactory. There is diffuse os seous metastatic disease throughout the thoracic spine and involving visualized portions of the cervi thai, lumbar spine and multiple ribs bilaterally. The T1 weighted images show multiple hypo intense a reas within the bones corresponding to areas of enhancement following contrast administration. There is an expansile lesion in the T3 vertebral body extending into the spinal canal. It effaces anterio r subarachnoid space. It causes no significant central spinal canal stenosis or compression of the s danna cord. Cord: The thoracic cord is normal size and signal intensity. No intrinsic cord lesion is present. Discs: No disc herniation or bulge is present. No central spinal canal or neural foraminal stenosis i s present. Soft tissues: Normal. IMPRESSION: 1. Diffuse osseous metastatic disease involving the thoracic spine and visualized portions of the cer vical spine, lumbar spine and ribs. 2. T3 lesion is noted which extends into the spinal canal but causes no significant central spinal ca nal stenosis. 3. No final cord compression or abnormal signal within the thoracic spinal cord. DATA REPOSITORY:
--- NOTE | 2021-07-10 09:51 | PUCC_ITS ---
General Date of Service Date of service: 07/10/21 Time of Service: 07:30 Reason for Admission to ICU: Hypercalcemia, hypernatremia Assessment and Plan Assessment and plan (1) LISSETTE (acute kidney injury): Status: Acute (2) Hypokalemia: Status: Acute (3) Hypercalcemia: Status: Acute (4) Acute hypernatremia: Status: Acute (5) Tongue cancer: Status: Chronic (6) Leucocytosis: Status: Acute Qualifiers: Leukocytosis type: unspecified Qualified Code(s): D72.829 - Elevated white blood cell count, unspecified (7) Troponin level elevated: Status: Acute Assessment and plan: This is a 71-year-old man who has a medical history of tongue cancer status post therapy completed May 2021 who presents after abnormal outpatient lab studies significant for severe hyper calcium as well as acute hypernatremia. He has been treated with Plasma-Lyte and appropriately resuscitated, receives calcitonin and is status post zoledronic acid. His calc ium has decreased significantly and on his last check was 12.4. His vitamin D and PTH levels are still pending. His sodium unfortunately has not decreased significantly. Now that he has been appropriately resuscitated with isotonic fluids we can use D5 water to treat the hypernatremia as well as his free water through his PEG tube. Recommendations Pulmonary: - supplemental O2 for sats >92% if needed Cardiac: Elevated troponin, downtrended - some EKG changes last night, however improved on his most recent EKG - echocardiogram non concerning Renal: LISSETTE - baseline Cr of 1 - improving with hydration - likely prerenal - good UOP Hypercalcemia, possibly secondary to malignancy - s/p plasmalyte resuscitation - continue calcitonin - s/p zolendronic acid - f/u 25-OH vit D total, vit d 1,25-dihydr., PTH, PTH-rp - TSH is normal Hypernatremia - avoid normal saline - free water deficit is 2.8L, recommend 250cc q4hr free water into PEG tube - recommend 1L D5W at 100-125cc/hr - continue close monitoring Hypokalemia - continue to replete to 4.0 as able Hyperchloremia - due in part to dehydration in addition to normal saline Hypophosphatemia - replete with K phos to 4.0 I&O: Intake & Output 07/07/21 07/08/21 07/09/21 07/10/21 23:59 23:59 23:59 23:59 Intake Total 2150 / 2390 6692.500 / 6692.500 540 / 540 Output Total 450 / 450 6000 / 6000 1999 / 1999 Balance 1700 / 1940 692.500 / 692.500 -1460 / -1460 Weight 70.7 kg 74.4 kg 75.4 kg Daily Fluid Goal:: Even to positive GI Nutrition: PEG tube - recommend decreasing PEG tube feed to 60cc/hr and assess for tolerance - recommend free water through PEG at 250cc q4hrs - ok for water PO as he does at home - avoid calcium containing foods and vitamin D - nutrition consulted Date of Last Bowel Movement: 07/10/21 Infectious Disease: Retropharyngeal abscess/floor of mouth abscess - on Zosyn - ENT has been consulted Hematologic: Anemia - no acute concerns - monitor Tongue cancer cT4a N2c M0, p16(-) - CT scan concerning for tumor invasion in the bas of the mouth as well as metastatic disease to the lungs and spine - thoracic spine MRI today - palliative care following - given these findings and rediscussion regarding goals of care seems appropriate Neurologic: Confusion, improving - likely 2/2 hypercalcemia - delirium prevention - light during day, dark at night, no TV and quiet at night, etc Endocrine: No acute concerns Lines: Port PEG tube Lafleur Prophylaxis: heparin for DVT ppx PPI Code Status: Resuscitation Status Full Code Subjective Critical and life-threatening events over the past 24 hours: Guero is feeling well today. He slept overnight. Per nursing he was refusing tube feeds as he kept feeling full and it was making him feel nauseated. It looks like he is written for 97 cc an hour of feeding which is quite a lot. He had his CAT scan performed yesterday that did show some concern for tumor infiltration as well as possible fluid collections in the spine. Return for abscess versus necrotic tumor in the floor of the mouth as well as a retropharyngeal fluid collection that could represent abscess. ENT was already consulted in a thoracic spine MRI was ordered. Exam Const General: no acute distress Nutritional Appearance: well nourished [facility] Head: normocephalic Ears: external ears normal and no periauricular adenopathy General nose exam: nasal mucous membranes and turbinates normal Face and sinus: sinuses nontender Mouth: oropharynx normal and moist mucous membranes Teeth and gingiva: dentition normal Eyes General: appearance normal, both eyes and all related structures Pupils: PERRL Neck Neck: normal visual inspection and no lymphadenopathy Chest Chest: normal inspection of the chest Resp Effort & Inspection: normal respiratory effort Auscultation: clear to auscultation bilaterally, no rales, no rhonchi and no wheezes Cardio Rate: regular rate Rhythm: regular rhythm Heart Sounds: S1 normal, S2 normal and no murmurs Pulses: radial pulses present bilaterally GI Inspection: normal to inspection Palpation: soft Skin General skin exam: no rashes or lesions noted Neuro General: patient alert, patient awake and patient oriented x3 Extrem General: no clubbing, cyanosis or edema Psych Mental Status: mental status grossly normal Affect: normal affect Attitude: cooperative Most Recent VS/Results Last Vital Signs Temp 36.2 C L 07/10/21 08:30 Pulse 83 07/10/21 08:01 Resp 16 07/10/21 08:01 BP 157/84 H 07/10/21 08:01 Pulse Ox 95 07/10/21 08:01 Laboratory Results - last 24 hr 07/09/21 07/09/21 07/09/21 12:25 12:25 18:35 WBC RBC Hgb Hct MCV MCH MCHC RDW Plt Count MPV Immature Gran % Neutrophils % Lymphocytes % Monocytes % Eosinophils % Basophils % Nucleated RBC % Absolute Neutrophils Absolute Lymphocytes Absolute Monocytes Absolute Eosinophils Absolute Basophils Sodium 159 H* 157 H* Potassium 3.1 L 3.3 L Chloride 120 H 118 H Carbon Dioxide 38.2 H 35.2 H Anion Gap 0.8 L 3.8 BUN 42 H 38 H Creatinine 1.6 H 1.5 H Estimated GFR/1.73 m2 42.82 46.13 Glucose 92 79 Calcium 14.3 H* 13.2 H* Phosphorus Magnesium Troponin I 0.10 H* Triglycerides Total Cholesterol LDL Cholesterol, Calc HDL Cholesterol 07/10/21 07/10/21 07/10/21 00:20 06:30 06:30 WBC 14.02 H RBC 3.87 L Hgb 11.5 L Hct 37.6 L MCV 97.2 H MCH 29.7 MCHC 30.6 L RDW 13.2 Plt Count 290 MPV 10.5 Immature Gran % 0.8 Neutrophils % 88.9 Lymphocytes % 3.7 Monocytes % 6.1 Eosinophils % 0.4 Basophils % 0.1 Nucleated RBC % 0 Absolute Neutrophils 12.46 H Absolute Lymphocytes 0.52 L Absolute Monocytes 0.86 H Absolute Eosinophils 0.06 Absolute Basophils 0.01 Sodium 159 H* 159 H* Potassium 3.0 L 2.8 L* Chloride 120 H 119 H Carbon Dioxide 35.5 H 33.8 H Anion Gap 3.5 6.2 BUN 36 H 36 H Creatinine 1.5 H 1.5 H Estimated GFR/1.73 m2 46.13 46.13 Glucose 80 85 Calcium 12.6 H* 12.1 H* Phosphorus Magnesium 1.8 Troponin I Triglycerides 78 Total Cholesterol 122 LDL Cholesterol, Calc 64 HDL Cholesterol 43 07/10/21 06:30 WBC RBC Hgb Hct MCV MCH MCHC RDW Plt Count MPV Immature Gran % Neutrophils % Lymphocytes % Monocytes % Eosinophils % Basophils % Nucleated RBC % Absolute Neutrophils Absolute Lymphocytes Absolute Monocytes Absolute Eosinophils Absolute Basophils Sodium Potassium Chloride Carbon Dioxide Anion Gap BUN Creatinine Estimated GFR/1.73 m2 Glucose Calcium Phosphorus 2.2 L Magnesium Troponin I Triglycerides Total Cholesterol LDL Cholesterol, Calc HDL Cholesterol Review of Systems All systems reviewed & are unremarkable except as noted in HPI and below Time spent with patient Time spent in Critical Care: 35 Time spent in Critical care included: Coordination of care, Chart review, Documenting critically ill care, Time at immediate bedside and Discussing critically ill care with other medical staff
[2021-07-10] MEDS: Docusate Sodium 100 MG/10 ML CUP NG (10:33)
[2021-07-10] MEDS: DEXTROSE 5%-WATER 1,000 ML 125 ML IV ×2 (10:34→19:02)
[2021-07-10] MEDS: POTASSIUM CHLORIDE 20 MEQ/100 ML BAG 50 MEQ IVPB ×3 (10:38→14:57)
[2021-07-10] MEDS: Potassium Chloride Liquid 20 MEQ PKT UD (10:39)
[2021-07-10] MEDS: Aspirin 81 MG CHEW NG (10:39)
[2021-07-10] MEDS: Pantoprazole 40 MG VIAL IVP (10:39)
[2021-07-10 13:07] LABS: Anion Gap 2.1 mmol/L (3-11); BUN 35 mg/dL (7-18); CO2 34.9 mmol/L (21.0-32.0); CREATININE 1.6 mg/dL (0.70-1.30); Chloride 120 mmol/L (98-107); Estimated GFR 42.82 (mL/min/1.73m2); Glucose 110 mg/dL (74-106); Potassium 3.1 mmol/L (3.5-5.1)
[2021-07-10 13:12] LABS: Calcium 11.8 mg/dL (8.5-10.1); Sodium 157 mmol/L (136-145)
[2021-07-10] MEDS: Lidocaine 5% Patch 1 PATCH TP (13:13)
[2021-07-10] MEDS: Metoclopramide 10 MG/2 ML VIAL 5 MG IVP ×3 (13:13→23:56)
[2021-07-10] MEDS: fentaNYL 100 MCG/2 ML VIAL IVP (16:11)
[2021-07-10 18:41] LABS: Anion Gap 3.9 mmol/L (3-11); BUN 35 mg/dL (7-18); CO2 33.1 mmol/L (21.0-32.0); CREATININE 1.7 mg/dL (0.70-1.30); Calcium 11.2 mg/dL (8.5-10.1); Chloride 118 mmol/L (98-107); Estimated GFR 39.93 (mL/min/1.73m2); Glucose 120 mg/dL (74-106); Potassium 3.4 mmol/L (3.5-5.1); Sodium 155 mmol/L (136-145)
[2021-07-11] VITALS (39 sets, daily range): BP systolic 99–129; BP diastolic 54–70; PULSE 71–106; RESP 11–20; TEMP 35.9–37.7; O2SAT 90–99
[2021-07-11 00:48] LABS: Anion Gap 3.3 mmol/L (3-11); BUN 30 mg/dL (7-18); CO2 32.7 mmol/L (21.0-32.0); CREATININE 1.6 mg/dL (0.70-1.30); Calcium 10.6 mg/dL (8.5-10.1); Chloride 115 mmol/L (98-107); Estimated GFR 42.82 (mL/min/1.73m2); Glucose 145 mg/dL (74-106); Potassium 3.1 mmol/L (3.5-5.1); Sodium 151 mmol/L (136-145)
[2021-07-11 01:27] LABS: Vitamin D 25 Total 35.7 ng/mL (30-100)
[2021-07-11] MEDS: DEXTROSE 5%-WATER 1,000 ML 125 ML IV ×2 (03:17→15:07)
[2021-07-11] MEDS: Metoclopramide 10 MG/2 ML VIAL 5 MG IVP (06:14)
[2021-07-11] MEDS: Heparin 5,000 UNITS/ML VIAL 5000 UNITS SC ×2 (06:15→17:36)
[2021-07-11] MEDS: Normal Saline Flush 10 ML SYR IVP ×8 (06:35→23:48)
[2021-07-11 07:07] LABS: Absolute Basophil Count 0.03 10^3/uL (0.0-0.2); Absolute Eosinophil Count 0.25 10^3/uL (0.0-0.7); Absolute Lymphocyte Count 0.49 10^3/uL (1.2-3.4); Absolute Monocyte Count 0.82 10^3/uL (0.1-0.8); Basophils % 0.2; Eosinophils % 1.8; HCT 34.8 % (40.0-50.0); HGB 10.8 g/dL (13.5-17.5); Immature Grans % 0.7; Lymphocytes % 3.5; MCH 30.1 pg (27.0-33.0); MCV 96.9 fL (80-95); MPV 10.4 fL (8.0-11.0); Monocytes % 5.8; Nucleated RBC 0 %; Platelet Count 267 10^3/uL (130-400); RBC 3.59 10^6/uL (4.36-5.78); RDW 13.1 % (11.8-14.1); RDW-SD 47.2 fL; WBC 14.09 10^3/uL (4.4-10.8)
[2021-07-11 07:19] LABS: Anion Gap 2.3 mmol/L (3-11); BUN 28 mg/dL (7-18); CO2 33.7 mmol/L (21.0-32.0); CREATININE 1.5 mg/dL (0.70-1.30); Calcium 10.1 mg/dL (8.5-10.1); Chloride 114 mmol/L (98-107); Estimated GFR 46.13 (mL/min/1.73m2); Glucose 147 mg/dL (74-106); Magnesium 1.8 mg/dL (1.8-2.4); Sodium 150 mmol/L (136-145)
[2021-07-11 07:33] LABS: Potassium 2.9 mmol/L (3.5-5.1)
--- NOTE | 2021-07-11 08:12 | PGE_ITS ---
Date of Service Date of service: 07/11/21 Time of Service: 13:14 Assessment and Plan Assessment and plan (1) Acute hypernatremia: Status: Acute Assessment and plan: In setting of dehydraiton. Improved on D5W - will continue. Continue free water through G tube. Continue to monitor Q6 BMPs. (2) Hypercalcemia: Status: Acute Assessment and plan: In setting of dehydration as well as malignancy. Does have bony metastases. s/p zolendronic acid and calcitonin. Resolved. 25-hydroxy Vit D level is 35.7. PTH/PTHrp pending Monitor Calciums (3) Dehydration: Status: Acute Assessment and plan: As above (4) LISSETTE (acute kidney injury): Status: Acute Assessment and plan: As above Improved. (5) Hypokalemia: Status: Acute Assessment and plan: Replete and recheck (6) Troponin level elevated: Status: Acute Assessment and plan: likely due to demand ischemia. Regional wall motion could not be assessed on echo. I think that there is limited benefit to pursuing ischemic workup given overall goals of care (only tx options for his ca, per [facility] [place], are palliative chemo/radiation). Continue asa. (7) Retropharyngeal abscess: Status: Suspected Assessment and plan: vs extension of tongue cancer. ENTwas consulted - stated that they would see this patient as outpatient. (8) Leucocytosis: Status: Acute Assessment and plan: Discussed with radiology: groundglass opacities could be metastatic disease vs infectious/inflammatory. Additionally, there is a concern for retropharyngeal abscess vs extension of the patient's disease into retropharyngeal/sublingual space. No major PE. Continue empiric zosyn. Monitor WBC. ENT follow up. Qualifiers: Leukocytosis type: unspecified Qualified Code(s): D72.829 - Elevated white blood cell count, unspecified (9) Tongue cancer: Status: Chronic Assessment and plan: Whlie the patient was on curative-intent chemo, his disease is metastatic and includes rib, thoracic spine mets (no evidence of cord compression), liver and possible adrenal mets. Discussed case with [facility] Heme/onc. The patient has palliative chemo/radiation options, per Dr Castro. I requested that Dr Tristan, who knows the patient, would discuss this with the patient. I have discussed this with the patient. Palliative care is consulted. (10) Failure to thrive: Status: Acute Assessment and plan: Consult palliative care (11) DVT prophylaxis: Status: Acute Assessment and plan: Sc heparin (12) Discharge planning issues: Status: Acute Assessment and plan: Full code Transfer out of ICU. Subjective Subjective Interval history since last seen: When I saw the patient circa 1200 pm, he reported no pain, dizziness, chest discomfort, shortness of breath, or nausea. To nursing, he reported L jaw/neck/rib pain for which he got fentanyl and tylenol. He also reported nausea earlier in the day. Rubbing/junky lung sounds. Thick white sputum. O2 sat high 90s on RA. BPs 100/50s. HR 80s-90s. Now having diarrhea. Nausea overnight and now. 1850 cc UOP overnight. Gets overwhelmed when talking about his diagnosis. 17 beats of SVT - 8 pm - asymptomatic when he stood up from commode. 13 beats of slow Vtach while asleep. Heme -. Exam Narrative Exam Narrative: General: Pleasant cooperative male, asleep, wakes up easily, A&OX3, coughing, dysarthric, brings up thick white/pinkish sputum. HEENT: Atraumatic, visible large submandibular mass, EOMI, MMM Cardiovascular: RRR, no m/r/g Lungs: rales Gastrointestinal: soft, nontender, nondistended Extremities: no edema BLEs, no clubbing/cyanosis, +1 pedal pulses, no lesions on B feet. Having calf spasms on my exam, relieved with extension of 1st digits on BLEs. Objective Last Vital Signs Temp 36.3 C L 07/11/21 04:00 Pulse 89 07/11/21 06:01 Resp 15 07/11/21 06:30 BP 102/56 L 07/11/21 06:01 Pulse Ox 97 07/11/21 06:30 Laboratory Results - last 24 hr 07/09/21 07/10/21 07/10/21 06:30 06:30 06:30 WBC RBC Hgb Hct MCV MCH MCHC RDW Plt Count MPV Immature Gran % Neutrophils % Lymphocytes % Monocytes % Eosinophils % Basophils % Nucleated RBC % Absolute Neutrophils Absolute Lymphocytes Absolute Monocytes Absolute Eosinophils Absolute Basophils Sodium 159 H* Potassium 2.8 L* Chloride 119 H Carbon Dioxide 33.8 H Anion Gap 6.2 BUN 36 H Creatinine 1.5 H Estimated GFR/1.73 m2 46.13 Glucose 85 Calcium 12.1 H* Phosphorus 2.2 L Magnesium 1.8 Triglycerides 78 Total Cholesterol 122 LDL Cholesterol, Calc 64 HDL Cholesterol 43 25-OH Vitamin D Total 35.7 07/10/21 07/10/21 07/11/21 12:20 18:10 00:00 WBC RBC Hgb Hct MCV MCH MCHC RDW Plt Count MPV Immature Gran % Neutrophils % Lymphocytes % Monocytes % Eosinophils % Basophils % Nucleated RBC % Absolute Neutrophils Absolute Lymphocytes Absolute Monocytes Absolute Eosinophils Absolute Basophils Sodium 157 H* 155 H Cancelled Potassium 3.1 L 3.4 L Cancelled Chloride 120 H 118 H Cancelled Carbon Dioxide 34.9 H 33.1 H Cancelled Anion Gap 2.1 L 3.9 Cancelled BUN 35 H 35 H Cancelled Creatinine 1.6 H 1.7 H Cancelled Estimated GFR/1.73 m2 42.82 39.93 Cancelled Glucose 110 H 120 H Cancelled Calcium 11.8 H* 11.2 H Cancelled Phosphorus Magnesium Triglycerides Total Cholesterol LDL Cholesterol, Calc HDL Cholesterol 25-OH Vitamin D Total 07/11/21 07/11/21 07/11/21 00:30 06:20 06:20 WBC 14.09 H RBC 3.59 L Hgb 10.8 L Hct 34.8 L MCV 96.9 H MCH 30.1 MCHC 31.0 L RDW 13.1 Plt Count 267 MPV 10.4 Immature Gran % 0.7 Neutrophils % 88.0 Lymphocytes % 3.5 Monocytes % 5.8 Eosinophils % 1.8 Basophils % 0.2 Nucleated RBC % 0 Absolute Neutrophils 12.40 H Absolute Lymphocytes 0.49 L Absolute Monocytes 0.82 H Absolute Eosinophils 0.25 Absolute Basophils 0.03 Sodium 151 H 150 H Potassium 3.1 L 2.9 L Chloride 115 H 114 H Carbon Dioxide 32.7 H 33.7 H Anion Gap 3.3 2.3 L BUN 30 H 28 H Creatinine 1.6 H 1.5 H Estimated GFR/1.73 m2 42.82 46.13 Glucose 145 H 147 H Calcium 10.6 H 10.1 Phosphorus Magnesium 1.8 Triglycerides Total Cholesterol LDL Cholesterol, Calc HDL Cholesterol 25-OH Vitamin D Total
--- NOTE | 2021-07-11 08:44 | CMPROGNOTE_ITS ---
- If Service Date Differs Date of service: 07/11/21 Time of Service: 16:16 Care Management Progress Note S/O: Guero transitioned out to M/S, remains acute at this time, per MD. He continues to report pain in his jaw, neck and ribs and is being treated with fentynl and tylenol at this time per MD. He remains dehydrated and has orders for free water through his G-tube. He was up to the commode today. Dulce inquired about getting DME at the home such as a walker, shower chair and commode. CM will ask for a PT eval, and is hopeful Guero can get set up with a walker prior to discharge. CM continues to follow. A: 71 year old male admitted to [facility] on 07/08/21 for severe hypercalcemia, genevieve vated troponin, deyhydration P: Anticipate Guero will be discharged home when medically cleared by provider. He will follow up with his PCP, [facility] oncology (discuss Palliative chemo) and discharge plan of care as directed. His girlfriend Blanca will drive him home via private vehicle when ready. CM will continue to support Guero and any discharge planning needs.
[2021-07-11] MEDS: fentaNYL 100 MCG/2 ML VIAL IVP ×4 (08:50→20:02)
[2021-07-11] MEDS: Potassium Chloride Liquid 20 MEQ PKT UD (08:51)
[2021-07-11] MEDS: Pantoprazole 40 MG VIAL IVP ×2 (08:51→20:01)
[2021-07-11] MEDS: Aspirin 81 MG CHEW NG (08:51)
[2021-07-11 08:52] LABS: Parathyroid Hormone,Intact 9 pg/mL (19-88)
[2021-07-11] MEDS: POTASSIUM CHLORIDE 20 MEQ/100 ML BAG 50 MEQ IVPB ×4 (08:52→15:29)
[2021-07-11] MEDS: guaiFENesin 200 MG/10 ML CUP UD ×3 (08:52→20:01)
[2021-07-11] MEDS: Acetaminophen Solution 650 MG/20.3 ML CUP NG ×2 (08:52→15:40)
[2021-07-11] MEDS: MAGNESIUM SULFATE 1 GM/100 ML BAG IVPB (08:53)
[2021-07-11 09:39] LABS: Calcium (Random Urine) 15.8 mg/dL (See Note)
[2021-07-11] MEDS: Lidocaine 5% Patch 1 PATCH TP (10:16)
[2021-07-11] MEDS: Metoclopramide 10 MG/2 ML VIAL IVP ×3 (12:11→23:47)
[2021-07-11 12:20] LABS: Anion Gap 4.9 mmol/L (3-11); BUN 28 mg/dL (7-18); CO2 31.1 mmol/L (21.0-32.0); CREATININE 1.5 mg/dL (0.70-1.30); Calcium 9.7 mg/dL (8.5-10.1); Chloride 111 mmol/L (98-107); Estimated GFR 46.13 (mL/min/1.73m2); Glucose 123 mg/dL (74-106); Potassium 3.8 mmol/L (3.5-5.1); Sodium 147 mmol/L (136-145)
[2021-07-11 15:25] LABS: PTH-Related Peptide 25 pmol/L (< or = 4.2)
[2021-07-11] MEDS: Gabapentin 100 MG CAP UD ×2 (15:29→20:02)
--- NOTE | 2021-07-11 16:14 | PT.INIE ---
Date of service: 07/11/21 Time of Service: 16:14 PT Notes Visit Reasons: Severe Hypercalcemia,Elevated Troponin,Dehydration Physical Therapy Inpatient Initial Evaluation Date: 07/11/2021 Referring Doctor: Svetlana Stoner MD PT Orders: PT CONSULT: Limited ability Precautions: Fall. Standard. Activity as tolerated. Patient Profile/Admitting Diagnosis: Patient is a 71-year-old male with regionally advanced tongue base carcinoma with most time who presented to the ED on 07/08/2021 due to abnormal laboratory results. Patient with diagnoses of acute hypernatremia, hypercalcemia, dehydration, acute kidney injury, hypokalemia, leukocytosis, and failure to thrive. 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 Dysphagia can manage thin liquids, not much else orally has feeding tube; trying to get in >1 feed/day Elevated liver enzymes Former smoker Frequent falls Generalized weakness History of alcohol abuse sober since 1991 Hypotension Irritability and anger frustrated with duration of treatment; wants a break for oncology visits/phone calls/lab tests/imaging Neutropenia Oral pain tongue very sensitive pain also in jaw and ear, left side Tongue cancer does not want surgery under any circumstances accepting radiation and chemo Unintentional weight loss Uses feeding tube minimally using it says the feeds make him feel sick Vapes nicotine containing substance Surgical History History of laryngoscopy Social History/Home Situation: Lives with girlfriend in a private home with 3 steps to enter, rails on B sides. Independent with all aspects of ADLS prior to most recent hospitalization. Equipment Owned/DME: None Subjective: Agreeable to PT consult. Hopeful about being able to return home. Agreeable to using the FWW to increase his independence with mobility ADL performance. Upset about how this 24-hour feeding is causing much discomfort and increased salivation in him. Reported pain in L frontemporal area, low back, and throat. Nurse was made aware. Objective: General Observation: Sitting at edge of bed all hunched up onto the garbage bin trying to let out increased saliva. Mildly upset about his recent feeding strategy. Telemetry in place, IV access in R UE. Gastrotomy tube in place. Mental Status: Alert and oriented as to person, place, time, and purpose. Able to pay attention, focus, and respond appropriately. Pain: mild pain in L side of head, low back, and throat ROM: Right Upper Extremity: Shoulder Flexion WFL. Shoulder abduction WFL. Elbow flexion WFL. Wrist flexion WFL. Functional opening and closing of hand WFL. Left Upper Extremity: Shoulder Flexion WFL. Shoulder abduction WFL. Elbow flexion WFL. Wrist flexion WFL. Functional opening and closing of hand WFL. Right Lower Extremity: Hip flexion WFL. Hip abduction WFL. Knee flexion WFL. Ankle dorsiflexion WFL. Ankle plantarflexion WFL. Left Lower Extremity: Hip flexion WFL. Hip abduction WFL. Knee flexion WFL. Ankle dorsiflexion WFL. Ankle plantarflexion WFL. Strength: Right Upper Extremity: Shoulder flexors 4-/5. Shoulder abductors 4-/5. Elbow flexors 4-/5. Elbow extensors 4-/5. Circus Train Supervisor strong. Left Upper Extremity: Shoulder flexors 4-/5. Shoulder abductors 4-/5. Elbow flexors 4-/5. Elbow extensors 4-/5. Circus Train Supervisor strong. Right Lower Extremity: Hip flexors 4-/5. Hip abductors 4-/5. Knee flexors 4-/5. Knee extensors 4-/5. Ankle dorsiflexors 4-/5. Ankle plantarflexors 4-/5. Left Lower Extremity: Hip flexors 4-/5. Hip abductors 4-/5. Knee flexors 4-/5. Knee extensors 4-/5. Ankle dorsiflexors 4-/5. Ankle plantarflexors 4-/5. Bed Mobility/Transfers: Supine to sit SBA with HOB at 45 degress Sit to supine standby assist Sit to stand standby assist with FWW Stand to sit standby assist with FWW Bed to bedside commode standby assist with FWW Bedside commode to bed standby assist with FWW Gait: Instructed patient with level surface ambulation of 15 feet + 15 feet requiring standby assist. Lakia decreased. Step height decreased. Step length decreased. Balance: Static Sitting: Normal Dynamic Sitting: Good Static Standing: Fair Dynamic Standing: Fair Special Tests: Mobility Limitations Standardized Measure [facility] AM-PAC 6 clicks Basic Mobility Inpatient Short Form: Raw Score: 23 CMS Score: 11% deficit Informed Consent/Education: Patient was instructed in purpose of PT consult and plan of care. Agreeable to proceed with established PT POC to achieve personal goals. Assessment: Guero does not need physical help with mobility performance as long as he uses the walker. His living space is not huge and he should be able to manage with transfers and ambulation should he decide to go home. His pain report did not limit today's mobility assessment. Patient presents with clinical signs and symptoms consistent with current/admitting diagnoses that have resulted to mobility limitations, gait instability, generalized weakness, and overall ADL decline as demonstrated by the following impairment level findings: 1. Decreased strength to B UE/LE major muscle groups 2. Impaired sitting/standing balance 3. Impaired activity tolerance Impairments are contributing to the following functional limitations: 1. Decline in bed mobility skills 2. Decline in transfer skills 3. Difficulty with ambulation without assistive device 4. Increased completion time for mobility ADL performance Patient is assessed as a 23692 high complexity based on the following: History: 71-year-old male with past medical history as indicated above Examination: Demonstrable impairment in strength, balance, and mobility level with underlying impairments and functional limitations as exhibited above as well as deficit score of 11% utilizing the [facility] Mobility Inpatient Short Form Presentation: Evolving Decision Makin high complexity Goals: Goals X1 week 1. Supine-Sit independent 2. Sit-Supine independent 3. Sit-Stand independent 4. Stand-Sit independent with FWW 5. Bed-Chair independent with FWW 6. Chair-Bed independent with FWW 7. Independent gait on level surface with use of FWW for at least 25 feet without report of pain nor dyspnea 8. Independent stair negotiation while holding onto B rails for at least 5 steps without report of pain nor dyspnea 9. Independent with home exercise program 10. Good static and dynamic standing balance/tolerance Plan of Care/Treatment Plan: 1-2x/day, 7 days/week x 1 week. Plan of care has been reviewed with the [employer] providing the service under Physical Therapy direction. Initiate Physical Therapy intervention for pain management as needed, strengthening, bed mobility, transfers, gait, stairs, balance training, and use of assistive device. DISCHARGE RECOMMENDATIONS: Patient will benefit from home health PT services in order to progress mobility level using least restrictive assistive ambulatory device, assess home safety, identify additional equipment needs, and establish a functional maintenance program that will increase ability of patient to remain at home. TREATMENT CODE/TIME: 31843 x 25 minutes, 62259 x 13 minutes beginning at 16:14 pm. Thank you for the opportunity to participate in the care of this patient. Sandra Sandy PT, DPT, CLT [facility] [place], [place]
[2021-07-11] MEDS: PIPERACILLIN/TAZO 3.375 GM in Normal Saline 50 ML IVPB ×2 (17:36→23:47)
[2021-07-11 18:39] LABS: Anion Gap 2.7 mmol/L (3-11); BUN 26 mg/dL (7-18); CO2 31.3 mmol/L (21.0-32.0); CREATININE 1.5 mg/dL (0.70-1.30); Calcium 9.4 mg/dL (8.5-10.1); Chloride 111 mmol/L (98-107); Estimated GFR 46.13 (mL/min/1.73m2); Glucose 173 mg/dL (74-106); Potassium 3.5 mmol/L (3.5-5.1); Sodium 145 mmol/L (136-145)
[2021-07-12] VITALS (7 sets, daily range): BP systolic 108–129; BP diastolic 64–68; PULSE 78–86; RESP 14–20; TEMP 36.2–37.7; O2SAT 96–98
[2021-07-12] MEDS: Acetaminophen Solution 650 MG/20.3 ML CUP NG ×3 (00:12→20:28)
[2021-07-12] MEDS: guaiFENesin 200 MG/10 ML CUP UD ×4 (02:50→20:28)
[2021-07-12] MEDS: fentaNYL 100 MCG/2 ML VIAL IVP ×5 (03:18→20:27)
[2021-07-12] MEDS: Normal Saline Flush 10 ML SYR IVP ×7 (03:19→23:45)
[2021-07-12] MEDS: Metoclopramide 10 MG/2 ML VIAL IVP (06:24)
[2021-07-12] MEDS: Heparin 5,000 UNITS/ML VIAL 5000 UNITS SC ×2 (06:25→17:33)
[2021-07-12] MEDS: PIPERACILLIN/TAZO 3.375 GM in Normal Saline 50 ML IVPB ×4 (06:25→23:44)
[2021-07-12 07:09] LABS: Abs Immature Grans 0.09 10^3/uL (0.0-0.06); Absolute Basophil Count 0.03 10^3/uL (0.0-0.2); Absolute Monocyte Count 0.73 10^3/uL (0.1-0.8); Basophils % 0.3; Eosinophils % 3.7; HCT 32.6 % (40.0-50.0); HGB 10.3 g/dL (13.5-17.5); Immature Grans % 0.8; MCH 29.9 pg (27.0-33.0); MCHC 31.6 % (32.0-36.0); MCV 94.8 fL (80-95); MPV 10.6 fL (8.0-11.0); Monocytes % 6.7; Neutrophils % 84.5; Nucleated RBC 0 %; Platelet Count 214 10^3/uL (130-400); RBC 3.44 10^6/uL (4.36-5.78); RDW 13.1 % (11.8-14.1); RDW-SD 45.5 fL; WBC 10.87 10^3/uL (4.4-10.8)
[2021-07-12 07:18] LABS: Absolute Lymphocyte Count 0.43 10^3/uL (1.2-3.4); Absolute Neutrophil Count 9.19 10^3/uL (1.2-6.7)
[2021-07-12 07:27] LABS: BUN 21 mg/dL (7-18); CREATININE 1.3 mg/dL (0.70-1.30); Calcium 8.9 mg/dL (8.5-10.1); Chloride 109 mmol/L (98-107); Estimated GFR 54.42 (mL/min/1.73m2); Glucose 104 mg/dL (74-106); Magnesium 1.7 mg/dL (1.8-2.4); Potassium 3.1 mmol/L (3.5-5.1); Sodium 144 mmol/L (136-145)
[2021-07-12] MEDS: Aspirin 81 MG CHEW NG (08:56)
[2021-07-12] MEDS: Gabapentin 100 MG CAP UD ×3 (08:57→20:28)
--- NOTE | 2021-07-12 09:30 | PDOC.CMPRO ---
- If Service Date Differs Date of service: 07/12/21 Time of Service: 09:30 Care Management Progress Note S/O: Med was lying in bed visiting with Dulce when CM met with him. CM provided pt and Dulce with a copy of his COLST form and assisted him with completing the short [facility] agent form. Guero declined PT this morning, however he is agreeable to allow PT to assess his need for a walker prior to discharge. CM communicated request to PT and they will set him up with a rolling walker. Dulce inquired about getting a commode, unfortunately Medicare will not cover it. CM reviewed options to offset costs for attaining equipment and usually the cheaper option is to order online or borrow one, Dulce is aware. A: 71 year old male admitted to [facility] 07[facility]21 for severe hypercalcemia, elevated troponin, deyhydration P: Anticipate Guero will be discharged home when medically cleared by provider. He met with Dr. Lobo today and completed a COLST form and is now DNR/DNI. He will follow up with his PCP, [facility] [place] (discuss Palliative chemo) and discharge plan of care as directed. His girlfriend Blanca will drive him home via private vehicle when ready. He will need PT evaluation for a FWW prior to discharge. CM communicated need to PT. CM will continue to support Guero and any discharge planning needs.
[2021-07-12] MEDS: MAGNESIUM SULFATE 2 GM/50 ML BAG IVPB (09:45)
[2021-07-12] MEDS: POTASSIUM CHLORIDE 20 MEQ/100 ML BAG 50 MEQ IVPB ×2 (09:47→11:46)
[2021-07-12] MEDS: Pantoprazole 40 MG VIAL IVP ×2 (09:59→20:28)
--- NOTE | 2021-07-12 10:46 | PCPN_ITS ---
Date of service: 07/12/21 Time of Service: 09:46 Assessment and Plan Assessment and plan (1) Retropharyngeal abscess: Status: Suspected (2) Failure to thrive: Status: Acute (3) Hypokalemia: Status: Acute (4) Metastasis to bone: Status: Acute (5) Palliative care patient: Status: Acute Assessment and plan: Hypokalemia?hospitalist will replete CODE STATUS?we revisited the CODE STATUS with Blanca on speaker phone. He stated that he does not want CPR, he is DNR, DNI. He still would want to be transported back to the hospital if he was home. He already has a feeding tube and would tolerate IV fluids also. I did change his CODE STATUS in the EMR. Med does plan to speak with oncology soon. 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 I have spent more than 50% of time in counseling with this patient. I have communicated our conversation to nursing, care management, and hospitalist team. He has completed a COLST form which is now in his record. Of note they live in [place]. His significant other states that she did bring a DNR form from [place]. I am uncertain if of [place] COLST will work in [place]. Subjective Subjective Patient reports: still having pain, shortness of breath and other (stridor) Interval history since last seen: I had met with Med and his significant other Dulce on Thursday to discuss CODE STATUS. At that time Med was emphatic that he wanted to be a full code. Since then Med's condition has deteriorated and further testing shows that he has multiple sites of bony metastasis. The hospitalist has been in contact with his oncologist. At this point Med would be a candidate for palliative radiation but the expectation of cure is unlikely. Med has not yet spoken with his oncologist. Plan is for his oncologist to call him or for Med to keep his Thursday appointment with oncology. Med states that breathing is getting harder. He has been having difficulty all night regarding his breathing. He also needs help getting out of bed for toileting Exam Narrative Exam Narrative: Med is sitting in his bed. He does not have oxygen on. His breathing seems comfortable but there is some stridor in his upper airways. There is good aeration in his lungs but expiration is rhonchorous Objective Last Vital Signs Laboratory Tests 07/09/21 07/11/21 07/12/21 06:30 12:05 06:30 Hct 40.0 Potassium 3.8 D 3.1 L Creatinine 1.5 H 1.3 07/12/21 06:30 Hct 32.6 L Potassium Creatinine Thoracic MRI: INDINGS: Bones: The vertebral body heights are well maintained. Alignment is satisfactory. There is diffuse osseous metastatic disease throughout the thoracic spine and involving visualized portions of the cervical, lumbar spine and multiple ribs bilaterally. The T1 weighted images show multiple hypo intense areas within the bones corresponding to areas of enhancement following contrast administration. There is an expansile lesion in the T3 vertebral body extending into the spinal canal. It effaces anterior subarachnoid space. It causes no significant central spinal canal stenosis or compression of the spinal cord. Cord: The thoracic cord is normal size and signal intensity. No intrinsic cord lesion is present. Discs: No disc herniation or bulge is present. No central spinal canal or neural foraminal stenosis is present. Soft tissues: Normal. IMPRESSION: 1. Diffuse osseous metastatic disease involving the thoracic spine and visualized portions of the cervical spine, lumbar spine and ribs. 2. T3 lesion is noted which extends into the spinal canal but causes no significant central spinal canal stenosis. 3. No final cord compression or abnormal signal within the thoracic spinal cord. Temp 97.2 F L 07/12/21 10:09 Pulse 86 07/12/21 10:09 Resp 14 07/12/21 10:09 BP 114/66 07/12/21 10:09 Pulse Ox 97 07/12/21 10:09 Laboratory Results - last 24 hr 07/09/21 07/09/21 07/10/21 09:30 20:05 06:30 WBC RBC Hgb Hct MCV MCH MCHC RDW Plt Count MPV Immature Gran % Neutrophils % Lymphocytes % Monocytes % Eosinophils % Basophils % Nucleated RBC % Absolute Neutrophils Absolute Lymphocytes Absolute Monocytes Absolute Eosinophils Absolute Basophils Sodium Potassium Chloride Carbon Dioxide Anion Gap BUN Creatinine Estimated GFR/1.73 m2 Glucose Calcium Magnesium PTH Intact 9 L PTH Related Peptide 25 H Ur Random Calcium 15.8 07/11/21 07/11/21 07/12/21 12:05 18:25 06:30 WBC RBC Hgb Hct MCV MCH MCHC RDW Plt Count MPV Immature Gran % Neutrophils % Lymphocytes % Monocytes % Eosinophils % Basophils % Nucleated RBC % Absolute Neutrophils Absolute Lymphocytes Absolute Monocytes Absolute Eosinophils Absolute Basophils Sodium 147 H 145 144 Potassium 3.8 D 3.5 3.1 L Chloride 111 H 111 H 109 H Carbon Dioxide 31.1 31.3 32.0 Anion Gap 4.9 2.7 L 3.0 BUN 28 H 26 H 21 H Creatinine 1.5 H 1.5 H 1.3 Estimated GFR/1.73 m2 46.13 46.13 54.42 Glucose 123 H 173 H 104 D Calcium 9.7 9.4 8.9 Magnesium 1.7 L PTH Intact PTH Related Peptide Ur Random Calcium 07/12/21 06:30 WBC 10.87 H RBC 3.44 L Hgb 10.3 L Hct 32.6 L MCV 94.8 MCH 29.9 MCHC 31.6 L RDW 13.1 Plt Count 214 MPV 10.6 Immature Gran % 0.8 Neutrophils % 84.5 Lymphocytes % 4.0 Monocytes % 6.7 Eosinophils % 3.7 Basophils % 0.3 Nucleated RBC % 0 Absolute Neutrophils 9.19 H Absolute Lymphocytes 0.43 L Absolute Monocytes 0.73 Absolute Eosinophils 0.40 Absolute Basophils 0.03 Sodium Potassium Chloride Carbon Dioxide Anion Gap BUN Creatinine Estimated GFR/1.73 m2 Glucose Calcium Magnesium PTH Intact PTH Related Peptide Ur Random Calcium
[2021-07-12] MEDS: Lidocaine 5% Patch 1 PATCH TP (11:23)
--- NOTE | 2021-07-12 13:10 | W.SPSTP ---
Date of service: 07/12/21 Time of Service: 13:10 Subjective Med was contacted at bedside today for dysphagia follow-up. His partner Blanca was present this date and received education as well. He reports minimal oral care this date. He has been taking sips of water and kori kathy since last visit. 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 Per oncology, there may be palliative chemo or radiation options for him and he plans to meet with his team soon to discuss this. Respiratory status: Tolerating room air without s/sx dyspnea. Baseline coughing of small amounts of sputum which he has a difficult time expectorating due to radiation effects. He uses a washcloth to wipe sputum from his tongue. Mental status: AAOx3, oriented to situation and appearing with improved energy for participation over Thursday's visit. Objective/Assessment/Plan Objective Treatment Techniques & Outcomes: 1. Patient will demonstrate tolerance of least restrictive oral diet to support nutrition/hydration needs in collaboration with RD/medical team while on unit Short Term Goals: 1. Patient will continue to demonstrate negative overt s/sx aspiration with IDDSI level 0 thin liquids and independent use of effective strategies (ie small sips) in 10/10 opportunities while on unit IN PROGRESS # of trials: 2 (ice chips) Noting wet vocal quality and delayed prolonged coughing following ice chips this date, though noting baseline wet coughing as well - difficult to assess. Patient stating ice chips taste awful, unwilling to participate in further PO trials. 2. Patient will demonstrate negative overt s/sx aspiration with IDDSI level 4 pureed solids and/or level 3 liquidized solids / moderately thickened liquids 10/10 opportunities and with assist as needed for oral placement while on unit NOT ADDRESSED Patient declined any further PO trials when offered (pudding). 3. Patient/carepartner/staff will demonstrate comprehension re: effective strategies for continued quality of life in context of dysphagia, including methods of preparation for modified textures per IDDSI guidelines prior to discharge from unit IN PROGRESS Provided instruction for use of oral care swabs with inline suction to increase oral comfort, reduce risk of aspiration pneumonia in context of high aspiration risk. Patient/Caregiver/Staff Education: Patient/Caregiver/Staff Education: Reviewed education r/t oral and pharyngeal swallow structure/function, overt s/sx aspiration and related implications on safety, respiratory function. Reviewed rationale for diligent oral care, especially in context of PO intake of ice/liquids for comfort. Patient and caregiver verbalized understanding. Reviewed recommendations to reduce frustration related to speech impairments and pain with speaking (low tech picture board, white baord). Provided recommendation to slow pace and enunciate one word at a time with pauses during communications with care staff. Assessment Med continues with limited ability to participate in PO trials this date due to dysgeusia and pain. Limited trials this date continue to indicate overt s/sx aspiration vs baseline wet cough/vocal quality. Continues with high risk of aspiration and pulmonary related complications. Focused primarily on education this session related to oral care using suction sponges to increase comfort and decrease oral bacterial load/aspiration risk. Discussed implications of aspiration risk and ways to mitigate these risks pending patients goals of care. Med indicated he may like to have portable suction at home to help facilitate oral care given his difficulty with expectoration. CC'ing care management to consider possibilities. Plan Plan: DIRECT MARKETING REPRESENTATIVE to continue to follow patient 3-5 days/week while on unit to address swallow and communication needs. Recommendations Diet: Other (Other (4/3 - pureed or liquidized solids/moderately thickened liquids per patient tolerance)) Liquids: 0-Thin Liquids Other: Medication intake: Via tube, alter medications only as advised by MD & Pharmacist RISK MANAGEMENT: Oral hygiene q4h/every 4 hours and before/after PO intake on all oral structures as tolerated suction PRN HOB upright as tolerated; upright for all PO intake. Encourage physical mobility as tolerated. Level of Assistance/Supervision: Independent Strategies/Adaptations/Assistive Equipment: N/A Posture/Positioning Needs: Encourage gentle throat clear and re-swallow prior to reclining to reduce suspected pharyngeal stasis Maintain upright position at least 30 minutes after meals Sleep with head of bed elevated to reduce likelihood of nocturnal reflux COMMUNICATION: Medical staff use picture board, white board, and request patient speak one word at a time as necessary to decrease repetitions and frustration. Recommendations: Instrumentation: TBD pending ongoing patient interview. Discuss with care management regarding possibility to Total Time Spent: 40 min CPT Code: 40325 - Dysphagia tx Coding
--- NOTE | 2021-07-12 13:22 | W.NUTRFU ---
Date of service: 07/12/21 Time of Service: 13:22 Nutritional Follow up NOTE: Pt. is only tolerating feeding at 60/hr which would need to be a continuous feed to meet his estimated requirements. Nursing reports that he does not wish to keep his HOB elevated during the hours of sleep, so the recommendation was made to cycle him for 16 hours/day. If a more concentrated formula was used such as a 2.0 thai/ml as he was getting at home, a 16 hour cycle of a 2.0 @ 60 ml/hr would provide adequate calories and protein. Unfortunately, our distributor does not have any 2.0 formulas in stock (He is currently getting a 1.5). However, the patient may have his Nutren 1.0 @ home which perhaps his partner could bring in for his use. Will continue to follow progress. Will evaluate nutrition care plan ongoing and adjust as needed. Time Spent in Nutritional Counseling and Treatment: 0
[2021-07-12] MEDS: Metoclopramide 10 MG/2 ML VIAL 5 MG IVP ×2 (13:56→20:28)
--- NOTE | 2021-07-12 15:00 | PT.INNT ---
Date of service: 07/12/21 Time of Service: 10:00 PT Notes Visit Reasons: Severe Hypercalcemia,Elevated Troponin,Dehydration 07/12/2021 Patient states that he does not want to participate in PT at this time. He states what is the point, there is no cure. He also states that he is doing fine with short distance walking and with transfers. Discussed with Care Management and reported to hospitalist.
--- NOTE | 2021-07-12 16:37 | PGE_ITS ---
Date of Service Date of service: 07/12/21 Time of Service: 16:38 Assessment and Plan Assessment and plan (1) Acute hypernatremia: Status: Resolved Assessment and plan: Continue free water through G tube. (2) Hypercalcemia: Status: Resolved Assessment and plan: In setting of dehydration as well as malignancy. Does have bony metastases. s/p zolendronic acid and calcitonin. Resolved. 25-hydroxy Vit D level is 35.7. PTH/PTHrp pending Monitor Calciums (3) Dehydration: Status: Resolved Assessment and plan: As above (4) LISSETTE (acute kidney injury): Status: Resolved Assessment and plan: Recheck Cr in am (5) Hypokalemia: Status: Acute Assessment and plan: Replete and recheck (6) Troponin level elevated: Status: Acute Assessment and plan: likely due to demand ischemia. Regional wall motion could not be assessed on echo. I think that there is limited benefit to pursuing ischemic workup given overall goals of care (only tx options for his ca, per [facility] onc, are palliative chemo/radiation). Continue asa. (7) Retropharyngeal abscess: Status: Suspected Assessment and plan: vs extension of tongue cancer. ENTwas consulted - stated that they would see this patient as outpatient. Patient is on zosyn - continue (8) Leucocytosis: Status: Acute Assessment and plan: Discussed with radiology: groundglass opacities could be metastatic disease vs infectious/inflammatory. Additionally, there is a concern for retropharyngeal abscess vs extension of the patient's disease into retropharyngeal/sublingual space. No major PE. Continue empiric zosyn. Monitor WBC. ENT follow up. Qualifiers: Leukocytosis type: unspecified Qualified Code(s): D72.829 - Elevated white blood cell count, unspecified (9) Tongue cancer: Status: Chronic Assessment and plan: Whlie the patient was on curative-intent chemo, his disease is metastatic and includes rib, thoracic spine mets (no evidence of cord compression), liver and possible adrenal mets. Discussed case with [facility] Heme/onc. The patient has palliative chemo/radiation options, per Dr Castro. Palliative care is consulted. The patient signed a COLST form for DNR/DNI I am adding fentanyl patch for his pain control. (10) Failure to thrive: Status: Acute Assessment and plan: Consult palliative care (11) DVT prophylaxis: Status: Acute Assessment and plan: Sc heparin (12) Discharge planning issues: Status: Acute Assessment and plan: Full code Anticipate discharge home in the next 48 hrs. Subjective Subjective Interval history since last seen: Requests root beer and kori kathy. Would like to be able to sleep flat at night - we agreed that I would discontinue his tube feeding at night. Nutrition will try to find a more calorie-dense formula for TF for during the day. Reports pain in his midback. States fentanyl puses help. Would like to try a fentanyl patch. Denies dizziness, chest pain, reports oral secretions are making it hard to breathe, but musinex is helping. Denies n/v. Had diarrhea today. Exam Narrative Exam Narrative: General: Pleasant cooperative male, asleep, wakes up easily, A&OX3, not coughing today HEENT: Atraumatic, visible large submandibular mass, EOMI, MMM Cardiovascular: RRR, no m/r/g Lungs: sonorous rales B Gastrointestinal: soft, nontender, nondistended Extremities: no edema BLEs, no clubbing/cyanosis, +1 pedal pulses, no lesions on B feet. Having calf spasms on my exam, relieved with extension of 1st digits on BLEs. Objective Last Vital Signs Temp 36.8 C 07/12/21 15:27 Pulse 81 07/12/21 15:27 Resp 17 07/12/21 15:27 BP 114/64 07/12/21 15:27 Pulse Ox 97 07/12/21 15:27 Laboratory Results - last 24 hr 07/11/21 07/12/21 07/12/21 18:25 06:30 06:30 WBC 10.87 H RBC 3.44 L Hgb 10.3 L Hct 32.6 L MCV 94.8 MCH 29.9 MCHC 31.6 L RDW 13.1 Plt Count 214 MPV 10.6 Immature Gran % 0.8 Neutrophils % 84.5 Lymphocytes % 4.0 Monocytes % 6.7 Eosinophils % 3.7 Basophils % 0.3 Nucleated RBC % 0 Absolute Neutrophils 9.19 H Absolute Lymphocytes 0.43 L Absolute Monocytes 0.73 Absolute Eosinophils 0.40 Absolute Basophils 0.03 Sodium 145 144 Potassium 3.5 3.1 L Chloride 111 H 109 H Carbon Dioxide 31.3 32.0 Anion Gap 2.7 L 3.0 BUN 26 H 21 H Creatinine 1.5 H 1.3 Estimated GFR/1.73 m2 46.13 54.42 Glucose 173 H 104 D Calcium 9.4 8.9 Magnesium 1.7 L
--- NOTE | 2021-07-12 17:00 | INDS_ITS ---
Date of service: 07/12/21 PT Notes Visit Reasons: Severe Hypercalcemia,Elevated Troponin,Dehydration Physical Therapy Inpatient Discharge Summary Date: 07/12/2021 Dates of Service: 07/11/2021 only This is a clinical summary of care provided for the duration of dates listed above. No charge was made in the completion of this documentation. Referring Doctor: Svetlana Stoner MD PT Orders: PT CONSULT: Limited ability Precautions: Fall. Standard. Activity as tolerated. Patient Profile/Admitting Diagnosis: Patient is a 71-year-old male with regionally advanced tongue base carcinoma with most time who presented to the ED on 07/08/2021 due to abnormal laboratory results. Patient with diagnoses of acute hypernatremia, hypercalcemia, dehydration, acute kidney injury, hypokalemia, leukocytosis, and failure to thrive. 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 Dysphagia can manage thin liquids, not much else orally has feeding tube; trying to get in >1 feed/day Elevated liver enzymes Former smoker Frequent falls Generalized weakness History of alcohol abuse sober since 1991 Hypotension Irritability and anger frustrated with duration of treatment; wants a break for oncology visits/phone calls/lab tests/imaging Neutropenia Oral pain tongue very sensitive pain also in jaw and ear, left side Tongue cancer does not want surgery under any circumstances accepting radiation and chemo Unintentional weight loss Uses feeding tube minimally using it says the feeds make him feel sick Vapes nicotine containing substance Surgical History History of laryngoscopy Social History/Home Situation: Lives with girlfriend in a private home with 3 steps to enter, rails on B sides. Independent with all aspects of ADLS prior to most recent hospitalization. Equipment Owned/DME: None Subjective: NT. See most recent KIER PLEATER notes. Objective: General Observation: NT. See most recent KIER PLEATER notes. Mental Status: NT. See most recent KIER PLEATER notes. Pain: NT. See most recent KIER PLEATER notes. ROM: Right Upper Extremity: Shoulder Flexion WFL. Shoulder abduction WFL. Elbow flexion WFL. Wrist flexion WFL. Functional opening and closing of hand WFL. Left Upper Extremity: Shoulder Flexion WFL. Shoulder abduction WFL. Elbow flexion WFL. Wrist flexion WFL. Functional opening and closing of hand WFL. Right Lower Extremity: Hip flexion WFL. Hip abduction WFL. Knee flexion WFL. Ankle dorsiflexion WFL. Ankle plantarflexion WFL. Left Lower Extremity: Hip flexion WFL. Hip abduction WFL. Knee flexion WFL. Ankle dorsiflexion WFL. Ankle plantarflexion WFL. Strength: Right Upper Extremity: Shoulder flexors 4-/5. Shoulder abductors 4-/5. Elbow flexors 4-/5. Elbow extensors 4-/5. Change Management Specialist strong. Left Upper Extremity: Shoulder flexors 4-/5. Shoulder abductors 4-/5. Elbow flexors 4-/5. Elbow extensors 4-/5. Change Management Specialist strong. Right Lower Extremity: Hip flexors 4-/5. Hip abductors 4-/5. Knee flexors 4-/5. Knee extensors 4-/5. Ankle dorsiflexors 4-/5. Ankle plantarflexors 4-/5. Left Lower Extremity: Hip flexors 4-/5. Hip abductors 4-/5. Knee flexors 4-/5. Knee extensors 4-/5. Ankle dorsiflexors 4-/5. Ankle plantarflexors 4-/5. Bed Mobility/Transfers: Supine to sit SBA with HOB at 45 degress Sit to supine standby assist Sit to stand standby assist with FWW Stand to sit standby assist with FWW Bed to bedside commode standby assist with FWW Bedside commode to bed standby assist with FWW Gait: Instructed patient with level surface ambulation of 15 feet + 15 feet requiring standby assist. Lakia decreased. Step height decreased. Step length decreased. Balance: Static Sitting: Normal Dynamic Sitting: Good Static Standing: Fair Dynamic Standing: Fair Assessment: Guero does not need physical help with mobility performance as long as he uses the walker. His living space is not huge and he should be able to manage with transfers and ambulation should he decide to go home. His pain report did not limit today's mobility assessment. Patient presents with clinical signs and symptoms consistent with current/admitting diagnoses that have resulted to mobility limitations, gait instability, generalized weakness, and overall ADL decline as demonstrated by the following impairment level findings: 1. Decreased strength to B UE/LE major muscle groups 2. Impaired sitting/standing balance 3. Impaired activity tolerance Impairments are contributing to the following functional limitations: 1. Decline in bed mobility skills 2. Decline in transfer skills 3. Difficulty with ambulation without assistive device 4. Increased completion time for mobility ADL performance Goals: Goals X1 week 1. Supine-Sit independent NOT MET 2. Sit-Supine independent NOT MET 3. Sit-Stand independent NOT MET 4. Stand-Sit independent with FWW NOT MET 5. Bed-Chair independent with FWW NOT MET 6. Chair-Bed independent with FWW NOT MET 7. Independent gait on level surface with use of FWW for at least 25 feet without report of pain nor dyspnea NOT MET 8. Independent stair negotiation while holding onto B rails for at least 5 steps without report of pain nor dyspnea NOT MET 9. Independent with home exercise program NOT MET 10. Good static and dynamic standing balance/tolerance NOT MET DISCHARGE RECOMMENDATIONS: Refuses PT services. Patient will benefit from home health PT services in order to progress mobility level using least restrictive assistive ambulatory device, assess home safety, identify additional equipment needs, and establish a functional maintenance program that will increase ability of patient to remain at home. TREATMENT CODE/TIME: OK Thank you for the opportunity to participate in the care of this patient. Sandra Sandy PT, DPT, CLT [facility] [place], [place] Rivas Gautam MD
[2021-07-12] MEDS: fentaNYL 12 MCG PATCH TD (17:33)
[2021-07-12] MEDS: Normal Saline 500 ML 30 ML IV (23:44)
[2021-07-13] VITALS (8 sets, daily range): BP systolic 113–128; BP diastolic 57–71; PULSE 75–92; RESP 4–19; TEMP 36.6–37.4; O2SAT 95–98
[2021-07-13] MEDS: Metoclopramide 10 MG/2 ML VIAL 5 MG IVP ×2 (02:01→09:05)
[2021-07-13] MEDS: guaiFENesin 200 MG/10 ML CUP UD ×4 (02:01→20:56)
[2021-07-13] MEDS: Normal Saline Flush 10 ML SYR IVP ×4 (02:01→23:51)
[2021-07-13] MEDS: Heparin 5,000 UNITS/ML VIAL 5000 UNITS SC ×2 (05:15→17:20)
[2021-07-13] MEDS: Acetaminophen Solution 650 MG/20.3 ML CUP NG ×2 (05:15→20:56)
[2021-07-13] MEDS: fentaNYL 100 MCG/2 ML VIAL IVP ×3 (05:16→17:01)
[2021-07-13] MEDS: PIPERACILLIN/TAZO 3.375 GM in Normal Saline 50 ML IVPB ×4 (05:16→23:49)
[2021-07-13 07:22] LABS: Abs Immature Grans 0.11 10^3/uL (0.0-0.06); Absolute Basophil Count 0.02 10^3/uL (0.0-0.2); Absolute Eosinophil Count 0.29 10^3/uL (0.0-0.7); Absolute Lymphocyte Count 0.34 10^3/uL (1.2-3.4); Absolute Monocyte Count 0.87 10^3/uL (0.1-0.8); Absolute Neutrophil Count 10.84 10^3/uL (1.2-6.7); Basophils % 0.2; Eosinophils % 2.3; HCT 31.9 % (40.0-50.0); HGB 10.1 g/dL (13.5-17.5); Immature Grans % 0.9; Lymphocytes % 2.7; MCH 29.8 pg (27.0-33.0); MCHC 31.7 % (32.0-36.0); MCV 94.1 fL (80-95); Neutrophils % 86.9; Nucleated RBC 0 %; Platelet Count 213 10^3/uL (130-400); RBC 3.39 10^6/uL (4.36-5.78); RDW 13.2 % (11.8-14.1); RDW-SD 45.8 fL; WBC 12.47 10^3/uL (4.4-10.8)
[2021-07-13 07:38] LABS: Anion Gap 7.2 mmol/L (3-11); BUN 17 mg/dL (7-18); CO2 29.8 mmol/L (21.0-32.0); CREATININE 1.4 mg/dL (0.70-1.30); Calcium 8.8 mg/dL (8.5-10.1); Chloride 110 mmol/L (98-107); Estimated GFR 49.96 (mL/min/1.73m2); Glucose 91 mg/dL (74-106); Potassium 3.1 mmol/L (3.5-5.1); Sodium 147 mmol/L (136-145)
[2021-07-13] MEDS: Aspirin 81 MG CHEW NG (09:05)
[2021-07-13] MEDS: Pantoprazole 40 MG VIAL IVP ×2 (09:05→20:56)
[2021-07-13] MEDS: Gabapentin 100 MG CAP UD ×3 (09:05→20:57)
[2021-07-13] MEDS: Lidocaine 5% Patch 1 PATCH TP (11:30)
[2021-07-13] MEDS: Potassium Chloride Liquid 20 MEQ PKT UD ×2 (14:40→20:56)
--- NOTE | 2021-07-13 14:42 | PGE_ITS ---
Date of Service Date of service: 07/13/21 Time of Service: 14:42 Assessment and Plan Assessment and plan (1) Acute hypernatremia: Status: Resolved Assessment and plan: Continue free water through G tube. Patient serum sodium is rising to 147 today. This is by the fact that he is getting 2 or 50 mL of free water every 4 hours. (2) Hypercalcemia: Status: Resolved Assessment and plan: In setting of dehydration as well as malignancy. Does have bony metastases. s/p zolendronic acid and calcitonin. Resolved. 25-hydroxy Vit D level is 35.7. PTH/PTHrp pending Monitor Calciums (3) Dehydration: Status: Resolved Assessment and plan: BUN and creatinine remain essentially unchanged. Present patient is tolerating his tube feeds at 60 mL/h Peptamen 1.5 kcal/mL (4) LISSETTE (acute kidney injury): Status: Resolved Assessment and plan: Stable BUN and creatinine (5) Hypokalemia: Status: Acute Assessment and plan: Continued problem with low potassium of 3.1. Currently receiving potassium supplements per his G-tube magnesium levels been rechecked is normal at 2.0 (6) Troponin level elevated: Status: Acute Assessment and plan: likely due to demand ischemia. Regional wall motion could not be assessed on echo. I think that there is limited benefit to pursuing ischemic workup given overall goals of care (only tx options for his ca, per [facility] onc, are palliative chemo/radiation). Continue asa. (7) Retropharyngeal abscess: Status: Suspected Assessment and plan: vs extension of tongue cancer. ENTwas consulted - stated that they would see this patient as outpatient. Patient is on zosyn - continue; I will talk with ENT on Thursday to discuss further evaluation. Consider repeat CT scan as an outpatient. (8) Leucocytosis: Status: Acute Assessment and plan: Discussed with radiology: groundglass opacities could be metastatic disease vs infectious/inflammatory. Additionally, there is a concern for retropharyngeal abscess vs extension of the patient's disease into retropharyngeal/sublingual space. No major PE. Continue empiric zosyn. Monitor WBC. ENT follow up. Qualifiers: Leukocytosis type: unspecified Qualified Code(s): D72.829 - Elevated white blood cell count, unspecified (9) Tongue cancer: Status: Chronic Assessment and plan: Whlie the patient was on curative-intent chemo, his disease is metastatic and includes rib, thoracic spine mets (no evidence of cord compression), liver and possible adrenal mets. The patient has palliative chemo/radiation options, per Dr Castro. Per his girlfriend they have consultation on Thursday if he is able to be discharged otherwise stable put this off to the following week Palliative care is consulted. The patient signed a COLST form for DNR/DNI fentanyl patch was added for his pain control. (10) Failure to thrive: Status: Acute Assessment and plan: Consult palliative care (11) DVT prophylaxis: Status: Acute Assessment and plan: Sc heparin (12) Discharge planning issues: Status: Acute Assessment and plan: Patient is now DNR/DNI and has signed a POLST form. Anticipate discharge home in the next 48 hrs. Subjective Subjective Interval history since last seen: Patient has a chronic moist cough and has trouble mobilizing his secretions. He has been tolerating the continuous tube feeds during the day and not had any vomiting. He and his girlfriend are looking forward to meeting with his oncologist to see if there is a palliative radiation treatment that can be provided to control his bony metastatic lesions. Exam Narrative Exam Narrative: Elderly white male who is alert sitting up in the bed at 60 degree angle with a moist harsh cough but trouble mobilizing his secretions. HEENT is remarkable for thick tongue but no exudates are noted. Neck is full with anterior cervical swelling presumably secondary to his head neck cancer Chest wall is nontender he has a Mediport under the right clavicular space Lungs with coarse bilateral rhonchi and expiratory wheezes Heart regular rate and rhythm Abdomen soft and nontender and nondistended Objective Last Vital Signs Temp 36.6 C 07/13/21 11:10 Pulse 84 07/13/21 11:10 Resp 19 07/13/21 11:10 BP 114/68 07/13/21 11:10 Pulse Ox 98 07/13/21 11:10 Laboratory Results - last 24 hr 07/13/21 07/13/21 06:28 06:28 WBC 12.47 H RBC 3.39 L Hgb 10.1 L Hct 31.9 L MCV 94.1 MCH 29.8 MCHC 31.7 L RDW 13.2 Plt Count 213 MPV 11.0 Immature Gran % 0.9 Neutrophils % 86.9 Lymphocytes % 2.7 Monocytes % 7.0 Eosinophils % 2.3 Basophils % 0.2 Nucleated RBC % 0 Absolute Neutrophils 10.84 H Absolute Lymphocytes 0.34 L Absolute Monocytes 0.87 H Absolute Eosinophils 0.29 Absolute Basophils 0.02 Sodium 147 H Potassium 3.1 L Chloride 110 H Carbon Dioxide 29.8 Anion Gap 7.2 BUN 17 Creatinine 1.4 H Estimated GFR/1.73 m2 49.96 Glucose 91 Calcium 8.8 Magnesium 2.0
[2021-07-13] MEDS: Albuterol/Ipratropium 3 ML UPD VIAL UPD ×2 (16:02→20:56)
[2021-07-13] MEDS: diazePAM 2 MG TAB UD (20:57)
[2021-07-13] MEDS: Normal Saline 500 ML 30 ML IV (23:52)
[2021-07-14] MEDS: fentaNYL 100 MCG/2 ML VIAL IVP ×5 (00:42→18:31)
[2021-07-14] MEDS: Normal Saline Flush 10 ML SYR IVP ×6 (00:42→18:31)
[2021-07-14] MEDS: Acetaminophen Solution 650 MG/20.3 ML CUP NG ×2 (02:52→09:31)
[2021-07-14] MEDS: diazePAM 2 MG TAB UD (02:52)
[2021-07-14] MEDS: guaiFENesin 200 MG/10 ML CUP UD ×4 (02:53→21:11)
[2021-07-14] MEDS: Docusate Sodium 100 MG/10 ML CUP NG (04:51)
[2021-07-14] MEDS: PIPERACILLIN/TAZO 3.375 GM in Normal Saline 50 ML IVPB ×2 (06:21→12:45)
[2021-07-14] MEDS: Heparin 5,000 UNITS/ML VIAL 5000 UNITS SC ×2 (06:22→18:32)
[2021-07-14 07:10] VITALS: BP 103/64; PULSE 69; RESP 16; TEMP 36.6; O2SAT 99
[2021-07-14 07:29] LABS: Anion Gap 5.7 mmol/L (3-11); BUN 15 mg/dL (7-18); CO2 29.3 mmol/L (21.0-32.0); CREATININE 1.2 mg/dL (0.70-1.30); Calcium 8.7 mg/dL (8.5-10.1); Chloride 109 mmol/L (98-107); Estimated GFR 59.68 (mL/min/1.73m2); Glucose 89 mg/dL (74-106); Potassium 3.4 mmol/L (3.5-5.1); Sodium 144 mmol/L (136-145)
[2021-07-14] MEDS: Gabapentin 100 MG CAP UD ×3 (08:29→21:11)
[2021-07-14] MEDS: Aspirin 81 MG CHEW NG (08:29)
[2021-07-14] MEDS: Pantoprazole 40 MG VIAL IVP (08:29)
[2021-07-14] MEDS: Potassium Chloride Liquid 20 MEQ PKT UD ×3 (08:29→21:08)
[2021-07-14] MEDS: Lidocaine 5% Patch 1 PATCH TP (09:33)
--- NOTE | 2021-07-14 14:33 | PGE_ITS ---
Date of Service Date of service: 07/14/21 Time of Service: 14:33 Assessment and Plan Assessment and plan (1) LISSETTE (acute kidney injury): Status: Resolved Assessment and plan: Acute kidney injury is resolved his BUN is down to 15 creatinine is at 1.2. Hypomagnesemia is resolved with a magnesium of 2.0 currently receiving enteral replacement. Hypercalcemia has resolved and is down to 8.7 after being treated with calcitonin and zoledronic acid. His dehydration has resolved and he seems to be tolerating the additional free water being given through his G-tube. He is tolerating his tube feedings of Peptamen calories per mL. We will get his Lafleur catheter out and monitor his pre and post void residuals. If he is voiding adequately he can go home without a Lafleur otherwise Lafleur catheter replaced and he can follow-up with urology as an outpatient. Patient was seen and discussed with the patient's girlfriend. 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 Dr. Stoner and consulted with our local ENT physician who had indicated to her that he would see him as an outpatient. No opinion was given as to whether or not this is a abscess. How ever the official reading of the radiologist suggests that this is just extension of his cancer. I will switch him from Zosyn and give him Augmentin for another 7 days and have him follow-up with ENT as an outpatient. 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 However MRI of his spine did not show any spinal cord compression. Patient will follow up with [facility] oncology as an outpatient for outpatient radiation treatment for palliation of his bony mets. While the patient has completed a COLST form and is a DNR/DNI he still would like to try treatment and is not ready for hospice yet. (4) DVT prophylaxis: Status: Acute Assessment and plan: In light of his hemoptysis I am going to put his heparin on hold (5) Discharge planning issues: Status: Acute Assessment and plan: Patient is now DNR/DNI and has signed a POLST form. Anticipate discharge home in the morning with home health services including physical therapy and nursing. Subjective Subjective Interval history since last seen: Patient is coughing up some blood-tinged sputum now. Is also complaining of an adequate pain control with increased left shoulder and upper back and lower neck pain. Still has a Lafleur catheter in which were to have this removed and monitor for postvoid residuals. He still on Zosyn for retropharyngeal abscess As well as possible community-acquired pneumonia versus aspiration. Sputum culture showed normal iris. He remains afebrile. He has a stable leukocytosis of 12,000. This point I think we can discontinue the Zosyn and put him on Augmentin. If he is successful with his voiding trial and we get his pain under control that he can be discharged home in the morning. I will increase his fentanyl patch from 12 mcg to 25 mcg every 72 hours. Upon discharge she will follow-up with his oncologist to discuss palliative radiation treatment to his spinal metastasis. 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 With patient's his speech is understandable. He is coughing up pink-tinged mucus. Lungs are clear to auscultation Heart regular rate and rhythm Abdomen soft and nondistended nontender. Objective Last Vital Signs Temp 36.6 C 07/14/21 07:10 Pulse 69 07/14/21 07:10 Resp 16 07/14/21 07:10 BP 103/64 07/14/21 07:10 Pulse Ox 99 07/14/21 07:10 Laboratory Results - last 24 hr 07/14/21 06:26 Sodium 144 Potassium 3.4 L Chloride 109 H Carbon Dioxide 29.3 Anion Gap 5.7 BUN 15 Creatinine 1.2 Estimated GFR/1.73 m2 59.68 Glucose 89 Calcium 8.7
[2021-07-14 15:33] VITALS: BP 119/70; PULSE 90; RESP 18; TEMP 36.6; O2SAT 100
[2021-07-14 18:18] LABS: 1,25-Dihydroxyvitamin D 29 pg/mL (18-64)
[2021-07-14] MEDS: Amoxicillin 400 MG/Clav. 57 MG 100 ML BTL 10 ML JT (21:13)
[2021-07-14] MEDS: fentaNYL 25 MCG PATCH TD (21:37)
[2021-07-14] MEDS: Patch Removal 1 EACH TD (21:45)
[2021-07-14 23:09] VITALS: BP 118/70; PULSE 90; RESP 18; TEMP 36.8; O2SAT 99
[2021-07-15] MEDS: fentaNYL 100 MCG/2 ML VIAL IVP ×5 (00:02→14:25)
[2021-07-15] MEDS: Normal Saline Flush 10 ML SYR IVP ×5 (00:02→17:14)
[2021-07-15] MEDS: Acetaminophen Solution 650 MG/20.3 ML CUP NG ×2 (01:20→17:10)
[2021-07-15] MEDS: guaiFENesin 200 MG/10 ML CUP UD ×3 (03:04→14:15)
[2021-07-15 06:32] VITALS: BP 114/66; PULSE 95; RESP 18; TEMP 36.5; O2SAT 99
[2021-07-15] MEDS: Heparin 5,000 UNITS/ML VIAL 5000 UNITS SC (06:33)
[2021-07-15 07:27] LABS: Anion Gap 7.5 mmol/L (3-11); BUN 14 mg/dL (7-18); CO2 27.5 mmol/L (21.0-32.0); CREATININE 1.2 mg/dL (0.70-1.30); Chloride 110 mmol/L (98-107); Estimated GFR 59.68 (mL/min/1.73m2); Glucose 94 mg/dL (74-106); Potassium 3.7 mmol/L (3.5-5.1); Sodium 145 mmol/L (136-145)
[2021-07-15 07:29] LABS: HCT 34.7 % (40.0-50.0); HGB 10.9 g/dL (13.5-17.5); MCH 29.9 pg (27.0-33.0); MCHC 31.4 % (32.0-36.0); MCV 95.1 fL (80-95); MPV 10.4 fL (8.0-11.0); Platelet Count 243 10^3/uL (130-400); RBC 3.65 10^6/uL (4.36-5.78); RDW 13.2 % (11.8-14.1); RDW-SD 45.6 fL; WBC 13.25 10^3/uL (4.4-10.8)
[2021-07-15 07:54] VITALS: BP 105/64; PULSE 99; RESP 18; TEMP 36.6; O2SAT 99
[2021-07-15] MEDS: Amoxicillin 400 MG/Clav. 57 MG 100 ML BTL 10 ML JT (08:06)
[2021-07-15] MEDS: Potassium Chloride Liquid 20 MEQ PKT UD ×2 (08:09→14:16)
[2021-07-15] MEDS: Aspirin 81 MG CHEW NG (08:11)
[2021-07-15] MEDS: Gabapentin 100 MG CAP UD ×2 (08:11→14:15)
--- NOTE | 2021-07-15 09:21 | PDOC.CMPRO ---
- If Service Date Differs Date of service: 07/15/21 Time of Service: 09:21 Care Management Progress Note S/O: A: 71 year old male admitted to [facility] on 07/08/21 for severe hypercalcemia, elevated troponin, deyhydration P: Anticipate Guero will discharge home today with NEW home health services including physical therapy and nursing. He will follow up with his PCP, [facility] oncology (discuss Palliative chemo) and discharge plan of care as directed. His girlfriend Blanca will drive him home via private vehicle when ready. He will need PT evaluation for a FWW prior to discharge. CM communicated need to PT. CM will continue to support Guero and any discharge planning needs.
[2021-07-15] MEDS: Lidocaine 5% Patch 1 PATCH TP (09:50)
--- NOTE | 2021-07-15 11:35 | TELEFU_ITS ---
Date of service: 07/15/21 Time of Service: 11:56 Nutritional Follow up NOTE: Guero to discharge home today. Has been tolerating Jevity 1.5 @ 60 cc/hour(over 16 hours) with flushes of 200 ml q 6 hours providing total of 1440 kcal, 60 g protein, 1880 ml fluid. Uses Peptamin 1.5 at home. Recommend Peptamin 1.5 @ 60 cc/hour (over 16 hours) with flushes of 200 ml q 6 hour providing total of 1440 kcal(20 kcal/kg), 60 g protein (0.8 gpro/kg), 1800 ml fluid (25 ml/kg). Recommend increasing 5 cc per week to goal rate of 70 cc/hour(over 16 hours) to provide 100% of [employer] for kcal/pro and vitamins/minerals. Peptamin 1.5 @ 70 cc/hour over 16 hours PLUS flushes of 200 ml q 6 hours will provide: 1680 kcal, 71 g protein,1700 ml free water. Time Spent in Nutritional Counseling and Treatment: 10
--- NOTE | 2021-07-15 11:47 | W.PALPGNOTE ---
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 I did find his nurse and asked the pain medication be given. It had not been given since midnight. He needs to speak with his oncologist and better determine what his prognosis is and what his choices are at this point. He was unable to discuss much today due to his pain. I hope to come back another day. If not still inpatient, will f/u in office Subjective Subjective Interval history since last seen: Med states that his main problem right now is the pain. He has excruciating pain in his back. He is anxious to see his oncologist to determine his next steps. He only wanted ice chips. He did not want water that was warming. He asked me to take it away. Exam Narrative Exam Narrative: Sitting on the side of the bed. He did not have as much stridor today as he did last week when I saw him. He was very uncomfortable and asked for pain meds. His heart was regular. Lungs very little inflation Objective Last Vital Signs Temp 97.9 F 07/15/21 07:54 Pulse 99 H 07/15/21 07:54 Resp 18 07/15/21 07:54 BP 105/64 07/15/21 07:54 Pulse Ox 99 07/15/21 07:54 Laboratory Results - last 24 hr 07/10/21 07/15/21 07/15/21 06:30 07:02 07:02 WBC 13.25 H RBC 3.65 L Hgb 10.9 L Hct 34.7 L MCV 95.1 H MCH 29.9 MCHC 31.4 L RDW 13.2 Plt Count 243 MPV 10.4 Sodium 145 Potassium 3.7 Chloride 110 H Carbon Dioxide 27.5 Anion Gap 7.5 BUN 14 Creatinine 1.2 Estimated GFR/1.73 m2 59.68 Glucose 94 Calcium 9.0 Vit D 1,25-Dihydroxy 29
--- NOTE | 2021-07-15 12:48 | PGE_ITS ---
Date of Service Date of service: 07/15/21 Time of Service: 12:48 Assessment and Plan Assessment and plan (1) Retropharyngeal abscess: Status: Suspected Assessment and plan: I am not convinced that this is a retropharyngeal abscess nevertheless I will treat him for 7 more days with Augmentin and have him follow-up with Dr. 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 However MRI of his spine did not show any spinal cord compression. Patient will follow up with [facility] oncology as an outpatient for outpatient radiation treatment for palliation of his bony mets. While the patient has completed a COLST form and is a DNR/DNI he still would like to try treatment and is not ready for hospice yet. His oncologist will see him this afternoon before the patient is discharged. (3) DVT prophylaxis: Status: Acute Assessment and plan: In light of his hemoptysis I am going to put his heparin on hold (4) Discharge planning issues: Status: Acute Assessment and plan: Patient is now DNR/DNI and has signed a POLST form. Anticipate discharge home this afternoon with home health services including physical therapy and nursing after he seen oncology Subjective Subjective Interval history since last seen: Patient has no new complaints. Still coughing up some thick whitish mucus with occasional blood-tinged to it. Denies any nausea or vomiting or abdominal pain. Denies shortness of breath. Is not requiring any supplemental oxygen. Oxygen saturations 99% on room air. Because the patient is getting discharged later in the day than expected his oncologist is graciously agreed to come over and see him in consultation prior to the patient leaving the hospital. Exam Narrative Exam Narrative: Elderly white male sitting up on the side of his bed he is alert and oriented. Lungs with moist scattered rhonchi Heart regular rate and rhythm Abdomen soft nontender nondistended normal bowel sounds Objective Last Vital Signs Temp 36.6 C 07/15/21 07:54 Pulse 99 H 07/15/21 07:54 Resp 18 07/15/21 07:54 BP 105/64 07/15/21 07:54 Pulse Ox 99 07/15/21 07:54 Laboratory Results - last 24 hr 07/10/21 07/15/2107/15/21 06:30 07:02 07:02 WBC 13.25 H RBC 3.65 L Hgb 10.9 L Hct 34.7 L MCV 95.1 H MCH 29.9 MCHC 31.4 L RDW 13.2 Plt Count 243 MPV 10.4 Sodium 145 Potassium 3.7 Chloride 110 H Carbon Dioxide 27.5 Anion Gap 7.5 BUN 14 Creatinine 1.2 Estimated GFR/1.73 m2 59.68 Glucose 94 Calcium 9.0 Vit D 1,25-Dihydroxy 29
--- NOTE | 2021-07-15 12:55 | PDOC.HHF2F_ITS ---
Home Health Certification Home Health Certification: 1. Encounter Date and Reason I certify that Guero Self was seen by Koby York on 07/15/21 and that I had a [id number] encounter with this patient that meets the physician face to face encounter requirements. 2. Clinical Findings Supporting Skilled Need and Homebound Status I certify that home health services are medically necessary, include either intermittent nursing home and/or physical/speech therapy, and that this p atient is homebound in that absences from the home require considerable and taxing effort and are infrequent or of short duration, or are attributable to the need to receive medical care. [X] (a) Attached documentation from encounter provides clinical findings supporting skilled need and homebound status (including what assistance patient requires to leave the home). The encounter with the patient was in whole, or in part, for the following medical condition, which is the primary reason for home health care: Severe Hypercalcemia,Elevated Troponin,Dehydration Longterm: to assess patient's nutrition and hydration status and pain control from his metastatic cancer. coordinate orders w/ PCP and oncology. M.S.W. to assist family in coordination of care services. Physical Therapy: continue strength training, conditioning and gait stability training; O.T. to evaluate home health needs for any assistive devices that may be needed for his to care for him in the home Speech Therapy: Homebound: patient's recent admission for severe dehydration and electrolyte disturbances has led to severe deconditioning and puts patient at increased risk w/ travel outside his home to receive medical services 3. Certification and Authentication I certify that I composed the above information based on my clinical judgement relating to this patient's medical condition and, if applicable, clinical findings communicated to me by the NPP or inpatient physician who performed the Home Health Referral. All further orders will be obtained through ____Suzy Shepard (Community Based Physician - PCP)
--- NOTE | 2021-07-15 13:01 | W.PM.DS.N ---
Date of service: 07/15/21 Time of Service: 13:01 DS: Diagnosis Discharge Diagnosis (1) Dehydration: Status: Resolved (2) LISSETTE (acute kidney injury): Status: Resolved (3) Hypercalcemia: Status: Resolved (4) Hypernatremia: Status: Resolved (5) Hypokalemia: Status: Resolved (6) Hypophosphatemia: Status: Resolved (7) Tongue cancer: Status: Chronic (8) Metastasis to bone: Status: Acute (9) Troponin level elevated: Status: Resolved (10) Retropharyngeal abscess: Status: Suspected (11) Failure to thrive: Status: Acute (12) Oral pain: Status: Chronic (13) Uses feeding tube: Status: Chronic (14) Discharge planning issues: Status: Resolved Discharge Plan Disposition Patient Disposition: HOME W/HOME HEALTH SERVICE Condition: Improving Discharge Details Reason For Visit: Severe Hypercalcemia,Elevated Troponin,Dehydration Admit Date/Time: 07/08/21 12:52 Admit Provider: Svetlana Stoner Attending Provider: Svetlana Stoner Primary Care Provider: [facility] Hospital Course Hospital Course: Sent to ED by oncology office for abnormal labs Narrative: Mr Self is a 71 year old male with PMHx of regionally advanced tongue base cancer s/p what was supposed to be curative chemoradiation, as well as h/o odynophagia due to mucositis/dysphagia s/p G-tube, medical noncompliance, ambulatory dysfunction who was sent over to [facility] ED from the oncology office for multiple electrolyte issues and dehydration. Specifically, he was found to have a sodium of 153, K of 2.8, calcium of 17.2 (16.8 on repeat in our ED). His Cr was 2.0 (normally 1.0). Hospitalist admission was requested for IV hydration. The patient has had difficulty with pureed food and has been coughing with thin liquids, though able to get water down. The patient had missed appointments with speech therapy to whom he is known. He does admit to not getting enough hydration/nutrition at home, though he states he has been trying. Endorses white sputum ever since the beginning of his chemo/radiation. Denies fevers, nausea, abdominal pain, urinary issues (since he started drinking more water, he states). Endorses constipation. Radiologic studies included CXR that demonstrated no acute pulmonary findings. CT neck, chest, abdomen and pelvis that demonstrated: IMPRESSION: 1. Enlargement and heterogeneous enhancement of the tongue consistent with the patient's known tongue carcinoma. Extensive enhancement is seen involving the or pharyngeal soft tissues hypopharynx and larynx suspicious for extension of disease. 2. 7 mm right middle lobe pulmonary nodule. Several ground-glass nodules scattered throughout the lungs. These may represent metastatic deposits. An infectious/inflammatory process cannot be entirely excluded. 3. Osseous metastatic disease including a T3 lytic lesion which appears to cause central spinal canal stenosis. MRI is recommended for further evaluation. 4. Multiple hypodense masses within the liver suspicious for metastatic disease. 5. 1.5 cm right adrenal nodule. 6. Diffuse thickening of the wall in a nondistended bladder. While this may be due to underdistention, an infectious/inflammatory cystitis cannot be excluded. 7. Enlarged lymph nodes seen in the midline between the clavicles. 8. Results of this exam have been verbally communicated with provider. Thoracic MRI that demonstrated: IMPRESSION: 1. Diffuse osseous metastatic disease involving the thoracic spine and visualized portions of the cervical spine, lumbar spine and ribs. 2. T3 lesion is noted which extends into the spinal canal but causes no significant central spinal canal stenosis. 3. No final cord compression or abnormal signal within the thoracic spinal cord Patient's pain was treated w/ iv fentanyl and he was switched to a fentanyl patch which was titrated to 25 mcg/hr however because he was still requiring iv fentanyl for breakthrough pain. The initial V-rad report of his CT scan through his neck raised some concerns for a retropharyngeal abscess (see report below): IMPRESSION: 1. Abnormal tongue findings consistent with the patient's known neoplasm. Discrete collections and heterogeneity involving the floor of the mouth could represent tumor infiltration. Pocket it abscess or seroma collections are not excludable versus necrosis associated with tumor. 2. Retropharyngeal fluid could be infected, consistent with abscess. 3. Findings of concern for laryngeal edema, possible tumor infiltration. In light of his elevated WBC and no other source of infection, patient was placed on Zosyn. Towards the end of his hospitalization this was changed to liquid Augmentin. THe hospitalist service contacted ENT for a consult regarding the possible retropharyngeal abscess but was told that the ENT provider would see the patient in the office upon discharge. No opinion was given regarding whether or not an abscess was present or whether any surgical drainage was indicated. Nevertheless, the patient's WBC responded declining to 13,000 at discharge. Patient was discharged home w/ an Rx for Augmentin x 7days. The patient was rehydrated w/ D5W and serial electrolytes were monitored. Once his serum sodium normalized the D5W was discontinued. Because he had been intolerant of bolus tube feeds and he was experiencing reflux during continuous tube feeds during the night, he was put on reglan and his tube feeds were run during the day. Nutrition consult was obtained (see their note for details). They recommended use of Peptamin 1.5 @ 70 mL/hr x 16hr. He was tolerating 60 mL/hr while in the hospital. Also free water of 200 mL every 6hr to maintain hydration. Once the feedings were changed to run during the day and he was put on reglan, he tolerated this diet. Patient's hypercalcemia was treated initially w/ iv fluids and calcitonin and then zoledronic acid was given. His hypercalcemia responded and on discharge his calcim level was 9.0 and had remained less than 10 for the past 4 days. Consults were obtained w/ P.T. and S.T. A trial of oral feeding was attempted by S.T. which he did not tolerate and no further S.T. intervention was pursued per patient's request. The patient refused to participate in P.T. after his initial evaluation. Consults were obtained from Palliative medicine who met w/ him 07/12 and assisted the patient w/ making choices of care. The patient opted for DNR/DNI status but indicated that he still would like treatment and wanted to meet w/ oncology to find out what options are available to treat his bone mets. A COLST form was completed. However, because the patient lives in [place] it is unclear whether or not the COLST form would be honored in [place]. Consultation was obtained w/ pulmonary/CCM services on admission; see Dr. Florez's notes. Dr. Tristan from oncology met w/ the patient and the patient's girlfriend and discussed the patient's options including palliative chemotherapy w/ paclitaxel and radiation treatment to the metastatic lesions in the patient's spine. Dr. Tristan spoke w/ me at the hospital on the day of the patient's discharge and indicated that he would make the arrangements for radiation and setting him up for chemotherapy and would initially handle the patient's pain treatment. He agreed w/ the plan to titrate the duragesic patch and to use liquid hydromorphone per his G tube for breakthrough pain. Home Meds and New Rx's Prescriptions: New metoclopramide HCl 5 mg/5 mL Solution 5 mg UD QID 10 Days Qty: 200 RF: 0 guaifenesin 100 mg/5 mL Liquid 200 mg UD Q6H 7 Days Qty: 280 RF: 0 amoxicillin-pot clavulanate 400-57 mg/5 mL Suspension For Reconstitution 10 ml J-tube BID 7 Days Qty: 140 RF: 0 potassium chloride 20 mEq Packet 20 meq UD TID 7 Days Qty: 21 RF: 0 lidocaine 5 % Adhesive Patch,Medicated 1 patch topical Q24H 10 Days Qty: 10 RF: 0 Phospha 250 Neutral 250 mg Tablet 250 mg NG QID 7 Days Qty: 7 RF: 0 gabapentin 100 mg Capsule 100 mg UD TID Qty: 30 RF: 0 fentanyl 25 mcg/hr Patch 72 Hour 25 mcg transdermal Q72H 9 Days Qty: 3 RF: 0 hydromorphone [Dilaudid] 1 mg/mL liquid 2 mg PO Q4H PRNQty: 100 RF: 0 Continued scopolamine base 1 mg over 3 days patch 3 day 1 patch transdermal Q3D Qty: 10 RF: 0 Prilosec 10 mg susp,delayed release for recon 20 mg PO BID Qty: 30 RF: 1 acetaminophen 500 mg capsule 500 mg PO Q6H PRNRF: 0 ibuprofen [Advil] 200 mg Tablet 600 mg PO PRN PRNRF: 0 Discontinued gabapentin 300 mg tablet 300 mg PO DAILY RF: 0 Discharge Instructions Instructions: Dehydration (DC), Hypercalcemia (DC), Mouth Cancer (DC) Stand Alone Forms: Nursing Discharge Form Referrals: [facility] [Other] (Called and left a message for the lab to call you to schedule you lab appointment.) Kristofer Tristan [ CONSULTING PHYSICIAN] - 07/22/21 (This appointment is in the [facility] office. [phone]. Office will call you with the time of your appointment on 07/22/2021) Denilson Ballard MD [ [facility] STAFF PHYSICIAN] - 07/29/21 1:45 pm (This appointment in the [facility]) Activity:: Activity as Tolerated Equipment/Supplies:: No Equipment Needed Diet:: g tube feedings as per nutritional services Discharge Orders Discharge Orders: Discharge Order (Routine); Ordered 07/15/21 Ordered By: Koby York Other Ambulatory Orders: Basic Metabolic Panel (Routine) Timeframe: 3 Days Facility: [facility] - Location: Laboratory Outpatient Ordered By: Koby York Complete Blood Count w/Diff (Routine) Timeframe: 3 Days Facility: [facility] - Location: Laboratory Outpatient Ordered By: Koby York Phosphorus (Routine) Timeframe: 3 Days Facility: [facility] - Location: Laboratory Outpatient Ordered By: Koby York Discharge Data Discharge Date/Time-TO BE ENTERED AT DEPARTURE: 07/15/21 18:16 DS: Summary Time Spent with Patient providing and/or coordinating discharge services: Greater than 30 minutes Specific discharge activities: writing Rx, discharge instructions, coordinating care w/ oncology, reviewing labs/studies; coordination of pain meds w/ pharmacist Status at Discharge Functional status at discharge: independent ambulation Overall status at discharge: patient is progressing back to baseline Mental Status: mental status grossly normal Speech and Movement: slurred speech Mood: congruent mood Affect: normal affect Exam Narrative Exam Narrative: Elderly white male sitting up at the bedside, he is alert and appropriate. Lungs w/ scattered rhonchi Heart: RRR Abdomen: soft, nontender and nondistended Neck: normal ROM, he has significant back pains but seems to move about his room well, able to get up out of bed independently Psych Mental Status: mental status grossly normal Speech and Movement: slurred speech Mood: congruent mood Affect: normal affect DS: Data Vitals/I&O Vitals and I&O: Vital Signs Temperature 36.6 C 07/15/21 07:54 Temperature Source Tympanic 07/15/21 07:54 Pulse 99 H 07/15/21 07:54 Pulse Rhythm Regular 07/15/21 11:07 Pulse 81 07/11/21 14:30 Respiratory Rate 18 07/15/21 07:54 Respiratory Effort 07/15/21 11:07 Respiratory Depth Normal 07/15/21 11:07 Respiratory Pattern Normal 07/15/21 11:07 Blood Pressure 105/64 07/15/21 07:54 Blood Pressure Mean 67 07/11/21 14:00 Blood Pressure Position Supine 07/11/21 12:44 Pulse Oximetry 99 07/15/21 07:54 Oxygen Delivery Method Room Air 07/15/21 07:54 Oxygen Flow Rate 0 07/15/21 07:54 Pain Level 8 07/15/21 12:53 Comment 07/11/21 23:50 Intake & Output 07/14/21 07/15/21 07/15/21 23:59 11:59 23:59 Intake Total 631 / 731 30 / 30 Output Total 1755 / 3080 750 / 750 Balance -1124 / -2349 -720 / -720 Weight 72.3 kg Intake: IV 80 / 180 30 / 30 Oral 100 / 100 Intake, Tube Feeding Amount 451 / 451 Output: Urine 1705 / 3030 750 / 750 Post Void Residual 0 / 0 Stool 50 / 50 Output, Residual 0 / 0 Other: Urine Color Yellow Pale Yellow Urine Appearance Clear Clear Urine Odor Normal Normal Comment mixed with stool Stool Size Small Small Stool Characteristics Liquid Soft Liquid Brown Voiding Methods Bedside Commode Bedside Commode Data Completed and Pending Labs on day of discharge: Labs from last 24 hours 07/15/21 07/15/21 07/10/21 07:02 07:02 06:30 WBC 13.25 H RBC 3.65 L Hgb 10.9 L Hct 34.7 L MCV 95.1 H MCH 29.9 MCHC 31.4 L RDW 13.2 Plt Count 243 MPV 10.4 Sodium 145 Potassium 3.7 Chloride 110 H Carbon Dioxide 27.5 Anion Gap 7.5 BUN 14 Creatinine 1.2 Estimated GFR/1.73 m2 59.68 Glucose 94 Calcium 9.0 Vit D 1,25-Dihydroxy 29 PFSH Medical History Anxiety about health Cancer determined by biopsy of tongue Chemotherapy adverse reaction off cisplantin; then lower dose carboplantin Decreased appetite Dehydration Denial about severity of illness reported that he did not understand that tx might not cure him Drooling improved with scopolamine patch 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 Dysphagia can manage thin liquids, not much else orally has feeding tube; trying to get in >1 feed/day Elevated liver enzymes Former smoker Frequent falls Generalized weakness History of alcohol abuse sober since 1991 Hypotension Irritability and anger frustrated with duration of treatment; wants a break for oncology visits/phone calls/lab tests/imaging Neutropenia Oral pain tongue very sensitive pain also in jaw and ear, left side Tongue cancer does not want surgery under any circumstances accepting radiation and chemo Unintentional weight loss Uses feeding tube minimally using it says the feeds make him feel sick Vapes nicotine containing substance Surgical History History of laryngoscopy Family History Mother , in a halfway; brandi unsure of her age at time of Dementia Father , age 53 of melanoma of his cheek/ face traumatic for Brandi who was young teen Melanoma Brother Heart disease Sister Breast cancer Daughter No problems noted. Grandson No problems noted. Social History Smoking/Tobacco Use Status: Former Tobacco Use tobacco type: cigarettes and e-cigarettes Quit Date: 03/08/21 Pack-years: 55 Tobacco: How many years used: 55 Second Hand Exposure: No Counseling given: other Details: quit vaping 2 wks before visit; quit cigs 10 yrs ago; quit chew 45 yrs ago Smoking risk assessment performed?: Yes Alcohol Intake: former Counseling given: No Details: started drinking age 5, quit age 42 Substance use type: does not use Caregiver/Support person: Yes Household members: significant other Housing: house Number of Children: 1 number of grandchildren: 1 Communication Needs: Hard of Hearing and Corrective Lenses Education Level: high school Do you need help understanding health information?: Often current occupation: works for [employer] at [employer]; hopes to return to work after tx Do you think of yourself as: straight/heterosexual Current gender identity: male What is your relationship status?: living with partner How often do you talk on the phone with friends or family?: never How often do you get together with friends or relatives?: twice per week Panel score (0-1 are the most socially isolated patients): 1 What type of physical activity do you participate in: none and sedentary lifestyle Duration: other Details: used to weight lift regularly, stopped December 2020, fatigued Frequency: other Details: will try weight lifting again, wants to be active Special bonny needs: No Agree to transfusion: Yes Drive intox or ride w/intox ems driver: No Working smoke detector in home: Yes Fire extinguisher in home: Yes Do you feel safe at home: Yes Do you feel safe in your relationship?: Yes Additional Social history: Was for 20 years until his in 2002 from ovarian cancer. Now with partner Blanca who also works at [employer]. They live together. She helps take care of him. He is convinced that he will get over this and return to work. He is adamant about no surgery. Did not discuss his CODE status yet. Would like SO Blanca to be present, too.
--- NOTE | 2021-07-15 16:12 | SPP_ITS ---
Date of service: 07/15/21 Time of Service: 16:13 Subjective Patient assessed at bedside in afternoon with Blanca also present. Patient politely refused p.o. intake during visit today, however willing to discuss comfort measures with POLITICAL SCIENCE RESEARCH ASSISTANT for return home once medically cleared. Pt to have appt with Dr. Tristan this afternoon as well. Objective/Assessment/Plan Objective Treatment Techniques & Outcomes: Chcf Goal: 1. Patient will demonstrate tolerance of least restrictive oral diet to support nutrition/hydration needs in collaboration with RD/medical team while on unit Short Term Goals: 1. Patient will continue to demonstrate negative overt s/sx aspiration with IDDSI level 0 thin liquids and independent use of effective strategies (ie small sips) in 10/10 opportunities while on unit DISCONTINUED Unwilling to participate in further PO trials 2. Patient will demonstrate negative overt s/sx aspiration with IDDSI level 4 pureed solids and/or level 3 liquidized solids / moderately thickened liquids 10/10 opportunities and with assist as needed for oral placement while on unit DISCONTINUED Unwilling to participate in further PO trials 3. Patient/carepartner/staff will demonstrate comprehension re: effective strategies for continued quality of life in context of dysphagia, including methods of preparation for modified textures per IDDSI guidelines prior to discharge from unit GOAL MET Provided counseling/education re: recommendations for continued oral care as tolerated to reduce oral bacteria load if patient does aspirate po intake of choice (unable to determine objectively without imaging, which patient is not interested in at this time). Previously provided instruction for use of oral care swabs with inline suction to increase oral comfort, reduce risk of aspirat ion pneumonia in context of high aspiration risk. Patient/carepartner demonstrate comprehension. Patient/Caregiver/Staff Education: Reviewed above recommendations with RN and Case Management today. Assessment Patient continues to primarily only tolerate liquid diet at this time, including very small sips of thin liquids, ice chips; willing to continue with oral care recommendations as previously reviewed, however unclear if frequency is being followed (at the very least, discussed 3-8x/day given xerostomia). Discussed alternatives to ice chips / small sips of water as patient reports this just does not provide him with satisfaction re: taste; recommendations include flavored ice per patient tolerance (reports he has recently been able to taste citrus, some sugary flavors better than his recent baseline given ongoing dysgeusia after [employer]). Provided additional samples of [employer]ick xanthan gum thickener to trial preparation of thickened ice cubes/ice chips at home if patient/carepartner find that thin liquids become difficult to tolerate or overt s/s aspiration are noted with more frequency/cause discomfort with flavors of choice. Patient and carepartner (Blanca) aware of overt s/sx aspiration, risk management as previously reviewed, and focus on comfort with oral intake at this time. Plan Plan: Patient d/c from acute POLITICAL SCIENCE RESEARCH ASSISTANT services on this date. This POLITICAL SCIENCE RESEARCH ASSISTANT to continue services once d/c from acute care via [facility] and in collaboration with [facility] medical team. Discussed follow up phone call in next week to touch base with patient and Blanca, which patient was in agreement with; provided patient and carepartner with POLITICAL SCIENCE RESEARCH ASSISTANT contact information. Recommendations Total Time Spent: 33 minutes POLITICAL SCIENCE RESEARCH ASSISTANT Service Code: Treatment Oral Function / Feeding - 24900 Coding
--- NOTE | 2021-07-15 17:05 | PDOC.CMDIS ---
- If Service Date Differs Date of service: 07/15/21 Time of Service: 17:05 LACE Index Scoring Tool - Questions: Length of Stay (in days): 7 - 13 Acuity (Admit via E.D.?): Yes Comorbidities: Metastatic Solid Tumor E.D. Visits: 1 - Answers: Total Score: 14 Risk of Readmission: High Risk Care Management Discharge Reason for Hospitalization: Severe hypercalcemia, elevated troponin, dehydration. Discharge Plan: Discharge home with new [facility] HH/PT/Speech therapy via private vehicle with family. Follow up with community providers and discharge plan of care as prescribed. Patient/Family Education Needs: Review discharge instructions, limitations and plan to follow up with community providers. ask me three. Services Needed at Discharge: Home Health Care Services ([facility] Home Health SN/PT/Speech, Palliative Care)
[2021-07-15] MEDS: Heparin 500 UNITS/5 ML SYRINGE IVP (17:12)
== END 2021-07-15 18:16 | disposition home health service (06) | DRG 683 ==
LOC: ER 13:14 → ICU 15:48 → MS 07-11 14:55
PROVIDERS: Internal Medicine; Student in an Organized Health Care Education/Training Program; Admitting Provider Internal Medicine; Emergency Provider Student in an Organized Health Care Education/Training Program; PCP Nurse Practitioner Family; Visit Provider Internal Medicine
DX: N17.9 Acute kidney failure, unspecified (principal); E87.0 Hyperosmolality and hypernatremia; J39.0 Retropharyngeal and parapharyngeal abscess; C78.00 Secondary malignant neoplasm of unspecified lung; C79.51 Secondary malignant neoplasm of bone; I24.8 Other forms of acute ischemic heart disease; E86.0 Dehydration; E83.52 Hypercalcemia; E87.6 Hypokalemia; R62.7 Adult failure to thrive; D72.829 Elevated white blood cell count, unspecified; C01 Malignant neoplasm of base of tongue; R47.1 Dysarthria and anarthria; F17.210 Nicotine dependence, cigarettes, uncomplicated; Z20.822 Contact with and (suspected) exposure to COVID-19; Z93.1 Gastrostomy status; R74.8 Abnormal levels of other serum enzymes; E87.8 Other disorders of electrolyte and fluid balance, not elsewhere classified; E83.39 Other disorders of phosphorus metabolism; D64.9 Anemia, unspecified; R41.0 Disorientation, unspecified; E55.9 Vitamin D deficiency, unspecified; Z66 Do not resuscitate; R29.6 Repeated falls; R13.10 Dysphagia, unspecified; D70.9 Neutropenia, unspecified
CPT/HCPCS: 36415; 36591; 70491; 74177; 80048; 80053; 80061; 82306; 85027; 87635; 90662; 92526; 92610; 93005; 93306; 96361; 96365; 96366; 96372; 97163; 97530; 99285; J3489; 71045; 71260; 72157; 81003; 81015; 82340; 82397; 82652; 83605; 83735; 83970; 84100; 84443; 84484; 85025; 87070; 87205; 93010; 94640; 99231; 99232; 99233; 99239; 99291; J0630; J1644; J2270; J2543; J2765; J3010; J3475; J3480; J3490; J7060; J7620

== ENCOUNTER 2021-07-17 19:20 | Emergency (ER) | payer MEDICARE, SELFPAY ==
[2021-07-17] VITALS (23 sets, daily range): BP systolic 107–162; BP diastolic 55–111; PULSE 85–131; RESP 12–27; TEMP 36.8–37; O2SAT 95–99
--- NOTE | 2021-07-17 20:05 | W.ED.GENAD ---
Discharge Plan Disposition Patient Disposition: HOME Condition: Stable Discharge Details Clinical Impression: Cancer of oral cavity, Shortness of breath Primary Care Provider: Suzy Shepard ED Provider: Rivas Valente Home Meds and New Rx's Prescriptions: Continued scopolamine base 1 mg over 3 days patch 3 day 1 patch transdermal Q3D Qty: 10 RF: 0 Prilosec 10 mg susp,delayed release for recon 20 mg PO BID Qty: 30 RF: 1 acetaminophen 500 mg capsule 500 mg PO Q6H PRNRF: 0 ibuprofen [Advil] 200 mg Tablet 600 mg PO PRN PRNRF: 0 metoclopramide HCl 5 mg/5 mL Solution 5 mg UD QID 10 Days Qty: 200 RF: 0 guaifenesin 100 mg/5 mL Liquid 200 mg UD Q6H 7 Days Qty: 280 RF: 0 amoxicillin-pot clavulanate 400-57 mg/5 mL Suspension For Reconstitution 10 ml J-tube BID 7 Days Qty: 140 RF: 0 potassium chloride 20 mEq Packet 20 meq UD TID 7 Days Qty: 21 RF: 0 lidocaine 5 % Adhesive Patch,Medicated 1 patch topical Q24H 10 Days Qty: 10 RF: 0 Phospha 250 Neutral 250 mg Tablet 250 mg NG QID 7 Days Qty: 7 RF: 0 gabapentin 100 mg Capsule 100 mg UD TID Qty: 30 RF: 0 fentanyl 25 mcg/hr Patch 72 Hour 25 mcg transdermal Q72H 9 Days Qty: 3 RF: 0 hydromorphone [Dilaudid] 1 mg/mL liquid 2 mg PO Q4H PRNQty: 100 RF: 0 Discharge Instructions Additional Instructions: your blood work and cat scan did not show any significant changes other than you have a new compression fracture in your thoracic spine follow up as scheduled with oncology if you feel more ill, have worsening difficulty breathing or severe worsening pain return to the emergency department Medical Decision Making 71 yo male with known oropharyngeal cancer with mets, recent admission and d/c'd 2 days ago after being admitted for chronic cough and secretions with dehydration and electrolyte abnormalities comes in with continued oral secretions and makes him cough. He denies fevers, chills, chest pain. On exam his speech is garbled which is his baseline. He is able to swallow on exam, has clear lungs sounds, soft nontender abodmen. His tongue is swollen and makes visualization of the posterior pharynx significantly challenging, but states this is his baseline. Given his history and symptoms will obtain labs and ct to evaluate for possible rpa, pneumonia and other abnormalities labs unremarkable and ct shows no significant changes in the neck per vrad, and has a new thoracic compression fracture otherwise no emergent findings. He is stable requestind d/c which I feel is reasonable given stable ct imaging. He has f/u Thursday with onvology, return precautions given Differential Diagnosis Differential Diagnosis: pneumonia, cancer, Medical Records Medical records reviewed: Yes I reviewed the patient's medical records. Imaging Data Radiologic Study: Attestation: I personally reviewed and interpreted this imaging study as follows: Imaging: CT Scan Radiologist's impression: PROCEDURE INFORMATION: Exam: CT Neck With Contrast Exam date and time: 07/17/2021 8:19 PM Age: 71 years old Clinical indication: Other: Cough, difficulty breathing TECHNIQUE: Imaging protocol: Computed tomography images of the neck with contrast. 3D rendering (Not supervised by radiologist): MIP and/or 3D reconstructed images were created by the technologist. COMPARISON: CT NECK CHEST ABD PEL W 07/09/2021 1:57 PM FINDINGS: Nasopharynx: Unremarkable. Oropharynx: Large complex rim enhancing tumor in the tongue is unchanged. The tongue is markedly fatty replaced and edematous. Marked edema and/or tumor extends across the pharyngeal mucosal space, greatest at the right palatine tonsil. Hypopharynx: Edema and/or tumor continue in the hypopharynx. Larynx: Tumor extends into the vallecula and the epiglottis is edematous, similar to previous. Edema and/or tumor noted in the larynx, unchanged. Narrowing of the supraglottic larynx is similar to previous. Retropharyngeal space: Negative for retropharyngeal abscess or air. Submandibular/Parotid glands: Left submandibular gland is smaller than previous, and surrounding edema has improved. Thyroid: Normal thyroid. Lymph nodes: Unremarkable. No lymphadenopathy. Trachea: Subglottic trachea is normal. Lungs: Please see CT chest dictated below. Bones/joints: Multilevel degenerative disc disease noted in the cervical spine. No specific lytic lesions observed in the cervical spine. Soft tissues: Unremarkable. No significant soft tissue swelling. IMPRESSION: 1. Large complex tumor of the tongue extends around the pharyngeal mucosal space. 2. Associated edema and distortion of tissue planes. 3. Marked narrowing of the supraglottic larynx, similar to previous. PROCEDURE INFORMATION: Exam: CT Chest With Contrast; Diagnostic Exam date and time: 07/17/2021 8:19 PM Age: 71 years old Clinical indication: Other: Cough, difficulty breathing TECHNIQUE: Imaging protocol: Diagnostic computed tomography of the chest with contrast. 3D rendering (Not supervised by radiologist): MIP and/or 3D reconstructed images were created by the technologist. COMPARISON: CT NECK CHEST ABD PEL W 07/09/2021 1:57 PM FINDINGS: Lungs: Multiple pulmonary nodules with surrounding ground-glass opacity of increased from previous. Nodules in the perihilar left upper lobe have small central cavitary components, new from previous. No specific consolidation is observed. No significant endobronchial mucus observed. Pleural spaces: Unremarkable. No pneumothorax. No pleural effusion. Heart: Moderate coronary artery calcifications. Negative for cardiomegaly. Aorta: No aortic aneurysm. Mild plaque. Lymph nodes: Mild paratracheal and subcarinal lymphadenopathy, similar to previous. Liver: Multiple liver masses are present, increased in size and number previous. Bones/joints: Expansile lytic tumor at the T4 vertebral body extends into the right pedicle, with mild narrowing of the spinal canal. A compression fracture at T4 is new from previous. Lytic tumor is also observed at T5, T6, the T7 spinous process, T10, T12, and L1. A mildly expansile destructive lesion is noted at the anterior left 8th rib. Additional bony lesions are likely. Soft tissues: Unremarkable. IMPRESSION: 1. Multiple pulmonary nodules progressed from previous. Metastatic neoplasm favored. Inflammatory nodule is not excluded. 2. Progression of liver metastases. 3. Multiple bone metastases. 4. Mild compression fracture at T4, new from previous Lab Data Lab results reviewed: Yes I reviewed the patient's lab results. HPI General Mode of arrival: ambulatory. Date/Time Provider Initiated Documentation: 07/17/21 19:21. Limitations to Documentation: no limitations. Information obtained by: patient. History of Present Illness 71 year old M presents to the emergency department with the chief complaint of thick secretions, described as moderate, and it has been constant. No relieving factors improve symptom(s), No exacerbating factors reported . Patient notes shortness of breath. Patient did receive the following treatments prior to arrival, none Related Data Home Medications Medication Instructions Recorded Confirmed acetaminophen 500 mg capsule 500 mg PO Q6H PRN 03/21/21 07/17/21 omeprazole magnesium 10 mg oral 20 mg PO BID #30 ea 04/09/21 07/17/21 suspension,delayed release scopolamine base 1 mg over 3 days 1 patch TRANSDERMAL Q3D #10 ea 04/09/21 07/17/21 transdermal patch ibuprofen [Advil] 600 mg PO PRN PRN 07/08/21 07/17/21 Phospha 250 Neutral 250 mg NG QID 7 Days #7 tab 07/15/21 07/17/21 amoxicillin-pot clavulanate 10 ml J-TUBE BID 7 Days #140 ml 07/15/21 07/17/21 fentanyl 25 mcg TRANSDERMAL Q72H 9 Days #3 07/15/21 07/17/21 ea gabapentin 100 mg UD TID #30 cap 07/15/21 07/17/21 guaifenesin 200 mg UD Q6H 7 Days #280 ml 07/15/21 07/17/21 hydromorphone [Dilaudid] 2 mg PO Q4H PRN #100 ml 07/15/21 07/17/21 lidocaine 1 patch TOPICAL Q24H 10 Days #10 ea 07/15/21 07/17/21 metoclopramide HCl 5 mg UD QID 10 Days #200 ml 07/15/21 07/17/21 potassium chloride 20 meq UD TID 7 Days #21 ea 07/15/21 07/17/21 Previous Rx's Medication Instructions Recorded omeprazole magnesium 10 mg oral 20 mg PO BID #30 ea 04/09/21 suspension,delayed release scopolamine base 1 mg over 3 days 1 patch TRANSDERMAL Q3D #10 ea 04/09/21 transdermal patch Phospha 250 Neutral 250 mg NG QID 7 Days #7 tab 07/15/21 amoxicillin-pot clavulanate 10 ml J-TUBE BID 7 Days #140 ml 07/15/21 fentanyl 25 mcg TRANSDERMAL Q72H 9 Days #3 07/15/21 ea gabapentin 100 mg UD TID #30 cap 07/15/21 guaifenesin 200 mg UD Q6H 7 Days #280 ml 07/15/21 hydromorphone [Dilaudid] 2 mg PO Q4H PRN #100 ml 07/15/21 lidocaine 1 patch TOPICAL Q24H 10 Days #10 ea 07/15/21 metoclopramide HCl 5 mg UD QID 10 Days #200 ml 07/15/21 potassium chloride 20 meq UD TID 7 Days #21 ea 07/15/21 Allergies Allergy/AdvReac Type Severity Reaction Status Date / Time Opioids - Morphine Analogues Allergy Verified 07/08/21 11:30 General Stated Complaint: GenMedical DILSHAD: 2 Review of Systems All systems reviewed & are unremarkable except as noted in HPI and below Constitutional Constitutional: Denies chills, Denies fever(s) and Denies weakness Cardiovascular Cardiovascular: Denies chest pain Gastrointestinal Gastrointestinal: Denies abdominal pain, Denies nausea and Denies vomiting Neurologic Neurologic: Denies weakness Psychiatric Psychiatric: Denies depression PFSH Medical History Anxiety about health Cancer determined by biopsy of tongue Chemotherapy adverse reaction off cisplantin; then lower dose carboplantin Decreased appetite Dehydration Denial about severity of illness reported that he did not understand that tx might not cure him Drooling improved with scopolamine patch 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 Dysphagia can manage thin liquids, not much else orally has feeding tube; trying to get in >1 feed/day Elevated liver enzymes Former smoker Frequent falls Generalized weakness History of alcohol abuse sober since 1991 Hypotension Irritability and anger frustrated with duration of treatment; wants a break for oncology visits/phone calls/lab tests/imaging Neutropenia Oral pain tongue very sensitive pain also in jaw and ear, left side Tongue cancer does not want surgery under any circumstances accepting radiation and chemo Unintentional weight loss Uses feeding tube minimally using it says the feeds make him feel sick Vapes nicotine containing substance Surgical History History of laryngoscopy Family History Mother , in a care home; brandi unsure of her age at time of Dementia Father , age 53 of melanoma of his cheek/ face traumatic for Brandi who was young teen Melanoma Brother Heart disease Sister Breast cancer Daughter No problems noted. Grandson No problems noted. Social History Smoking/Tobacco Use Status: Former Tobacco Use tobacco type: cigarettes and e-cigarettes Quit Date: 03/08/21 Pack-years: 55 Tobacco: How many years used: 55 Second Hand Exposure: No Counseling given: other Details: quit vaping 2 wks before visit; quit cigs 10 yrs ago; quit chew 45 yrs ago Smoking risk assessment performed?: Yes Alcohol Intake: former Counseling given: No Details: started drinking age 5, quit age 42 Substance use type: does not use Caregiver/Support person: Yes Household members: significant other Housing: house Number of Children: 1 number of grandchildren: 1 Communication Needs: Hard of Hearing and Corrective Lenses Education Level: high school Do you need help understanding health information?: Often current occupation: works for [employer]; hopes to return to work after tx Do you think of yourself as: straight/heterosexual Current gender identity: male What is your relationship status?: living with partner How often do you talk on the phone with friends or family?: never How often do you get together with friends or relatives?: twice per week Panel score (0-1 are the most socially isolated patients): 1 What type of physical activity do you participate in: none and sedentary lifestyle Duration: other Details: used to weight lift regularly, stopped December 2020, fatigued Frequency: other Details: will try weight lifting again, wants to be active Special bonny needs: No Agree to transfusion: Yes Drive intox or ride 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 Now with partner Blanca who also works at [employer]. They live together. She helps take care of him. He is convinced that he will get over this and return to work. He is adamant about no surgery. Did not discuss his CODE status yet. Would like SO Blanca to be present, too. Exam Const General: no acute distress Orientation: alert HENCT Head: normal to inspection Ears: external ears normal General nose exam: external nose normal Mouth: moist mucous membranes Eyes General: appearance normal, both eyes and all related structures Neck Neck: normal visual inspection Resp Effort & Inspection: normal respiratory effort Cardio Rate: regular rate Skin General skin exam: no rashes or lesions noted Neuro General: patient alert and patient oriented x3 Extrem General: normal to inspection Psych Mental Status: mental status grossly normal Course Vital Signs Vital signs: Vital Signs Temperature 36.8 C 07/17/21 19:24 Pulse 122 H 07/17/21 19:24 Respiratory Rate 22 07/17/21 19:24 Blood Pressure 121/62 07/17/21 19:24 Pulse Oximetry 98 07/17/21 19:24 Temperature 36.8 C 07/17/21 19:24 Temperature Source Temporal Artery Scan 07/17/21 19:24 Pulse 122 H 07/17/21 19:24 Respiratory Rate 22 07/17/21 19:24 Blood Pressure 121/62 07/17/21 19:24 Blood Pressure Position Sitting 07/17/21 19:24 Pulse Oximetry 98 07/17/21 19:24 Oxygen Delivery Method Room Air 07/17/21 19:24 Oxygen Flow Rate 0 07/17/21 19:24 Pain Level 7 07/17/21 19:24
--- NOTE | 2021-07-17 20:15 | DI.CT_ITS ---
Exam(s) CT NECK CHEST W EXAM: CT NECK CHEST W CLINICAL HISTORY: cough, difficulty breathing TECHNIQUE: CT CT NECK CHEST ABD PEL W from 07/09/[address] NECK CHEST ABD PEL W from 07/09/2021 FINDINGS: CT examination of the neck and chest was performed with intravenous infusion of 100 cc of Omnipaque 3 50. Examination is compared with examination of July 09 which showed a very large known carcinoma ton lenka extending into the soft tissues of the hypopharynx and larynx. This appearance is essentially un changed from the prior examination. There is narrowing of the subglottic trachea, grossly unchanged from prior study. Visualized orbits and brain are unremarkable in appearance. No intracranial enhancing There are numerous pulmonary nodules which are mixed solid and ground-glass. These appear increased from prior examination. Some cavitation now appears to be present in nodules in left perihilar regio n. Findings are suspect are consistent with worsening metastatic disease, infectious process not exc luded. No gross pleural effusion. No gross mediastinal adenopathy. Right Port-A-Cath noted in posi tion. Visualized portions of the liver show innumerable metastatic lesions. Comparison with prior examinat ion shows increased prominence on today's study, perhaps representing differences in injection timing . Pancreas and spleen grossly unremarkable. Adrenals and kidneys grossly unremarkable. Erosive and destructive lesions of multiple thoracic vertebral bodies noted, most prominent at T4. T here appears to be increased loss of height of T4 since prior examination of July 09 suggesting a n acute compression fracture. IMPRESSION: No gross interval change in known large carcinoma of the base of the tongue with extension into hypop harynx and larynx. Narrowing of subglottic trachea, unchanged, Apparent increasing intrapulmonary metastatic lesions. Innumerable hepatic metastatic lesions, question increased. Increased loss of height of T4 vertebral body in suggesting acute pathological compression fracture, numerous bony lesions are seen the period RADIATION DOSE DELIVERED: 948.68mGy.cm Total DLP 14.72mGy CTDIvol RADIATION OPTIMIZATION: All CT scans at this facility use at least one of these dose optimization te chniques: automated exposure control; mA and/or kV adjustment per patient size (includes targeted exa ms where dose is matched to clinical indication); or iterative reconstruction.
[2021-07-17 20:18] LABS: Source Nasal/Nares
[2021-07-17 20:23] LABS: BE (Venous) 0 mmol/L (-2-3); HCO3 (Venous) 25 mmol/L (23-28); O2 Sat (Venous) 86 %; TCO2 (Venous) 23 mmol/L (24-29); pCO2 (Venous) 43 mmHg (41-51); pH (Venous) 7.38 (7.31-7.41); pO2 (Venous) 51 mmHg
[2021-07-17 20:28] LABS: Abs Immature Grans 0.12 10^3/uL (0.0-0.06); Absolute Monocyte Count 1.07 10^3/uL (0.1-0.8); Absolute Neutrophil Count 12.89 10^3/uL (1.2-6.7); Basophils % 0.1; HCT 38.2 % (40.0-50.0); HGB 12.1 g/dL (13.5-17.5); Immature Grans % 0.8; Lymphocytes % 2.7; MCHC 31.7 % (32.0-36.0); MCV 94.8 fL (80-95); MPV 10.6 fL (8.0-11.0); Monocytes % 7.3; Neutrophils % 88.1; Nucleated RBC 0 %; Platelet Count 258 10^3/uL (130-400); RBC 4.03 10^6/uL (4.36-5.78); RDW 13.4 % (11.8-14.1); RDW-SD 47.3 fL; WBC 14.63 10^3/uL (4.4-10.8)
[2021-07-17 20:31] LABS: Absolute Basophil Count 0.01 10^3/uL (0.0-0.2); Absolute Eosinophil Count 0.15 10^3/uL (0.0-0.7)
[2021-07-17 20:38] LABS: INR 1.1 (0.9-1.1); PTT Activated 25.6 sec (21.0-27.5); Prothrombin Time 11.5 sec (9.3-11.0)
[2021-07-17 20:41] LABS: ALT 71 U/L (16-63); AST 56 U/L (15-37); Albumin 2.4 g/dL (3.4-5.0); Alkaline Phosphatase 200 U/L (46-116); Anion Gap 6.8 mmol/L (3-11); BUN 19 mg/dL (7-18); Bilirubin, Total 0.3 mg/dL (0.2-1.0); CO2 27.2 mmol/L (21.0-32.0); CREATININE 1.1 mg/dL (0.70-1.30); Calcium 10.6 mg/dL (8.5-10.1); Chloride 107 mmol/L (98-107); Glucose 131 mg/dL (74-106); Potassium 4.6 mmol/L (3.5-5.1); Sodium 141 mmol/L (136-145); Total Protein 7.4 g/dL (6.4-8.2)
[2021-07-17] MEDS: Omnipaque 350 MG/ML 100 ML BTL IJ (21:32)
[2021-07-17] MEDS: Normal Saline - Diluent 50 ML VIAL IV (21:34)
[2021-07-17] MEDS: Normal Saline Flush 10 ML SYR IVP (21:34)
--- NOTE | 2021-07-17 21:40 | NUR.NOTE ---
Requests pain medications.Nursing Note:
[2021-07-17] MEDS: HYDROmorphone 2 MG/ML VIAL 1 MG IVP (22:00)
[2021-07-17] MEDS: Scopolamine 1 MG/3 DAYS PATCH TD (22:01)
--- NOTE | 2021-07-17 22:08 | DI.VRAD_ITS ---
PROCEDURE INFORMATION: Exam: CT Neck With Contrast Exam date and time: 07/17/2021 8:19 PM Age: 71 years old Clinical indication: Other: Cough, difficulty breathing TECHNIQUE: Imaging protocol: Computed tomography images of the neck with contrast. 3D rendering (Not supervised by radiologist): MIP and/or 3D reconstructed images were created by the technologist. COMPARISON: CT NECK CHEST ABD PEL W 07/09/2021 1:57 PM FINDINGS: Nasopharynx: Unremarkable. Oropharynx: Large complex rim enhancing tumor in the tongue is unchanged. The tongue is markedly fatty replaced and edematous. Marked edema and/or tumor extends across the pharyngeal mucosal space, greatest at the right palatine tonsil. Hypopharynx: Edema and/or tumor continue in the hypopharynx. Larynx: Tumor extends into the vallecula and the epiglottis is edematous, similar to previous. Edema and/or tumor noted in the larynx, unchanged. Narrowing of the supraglottic larynx is similar to previous. Retropharyngeal space: Negative for retropharyngeal abscess or air. Submandibular/Parotid glands: Left submandibular gland is smaller than previous, and surrounding edema has improved. Thyroid: Normal thyroid. Lymph nodes: Unremarkable. No lymphadenopathy. Trachea: Subglottic trachea is normal. Lungs: Please see CT chest dictated below. Bones/joints: Multilevel degenerative disc disease noted in the cervical spine. No specific lytic lesions observed in the cervical spine. Soft tissues: Unremarkable. No significant soft tissue swelling. IMPRESSION: 1. Large complex tumor of the tongue extends around the pharyngeal mucosal space. 2. Associated edema and distortion of tissue planes. 3. Marked narrowing of the supraglottic larynx, similar to previous. PROCEDURE INFORMATION: Exam: CT Chest With Contrast; Diagnostic Exam date and time: 07/17/2021 8:19 PM Age: 71 years old Clinical indication: Other: Cough, difficulty breathing TECHNIQUE: Imaging protocol: Diagnostic computed tomography of the chest with contrast. 3D rendering (Not supervised by radiologist): MIP and/or 3D reconstructed images were created by the technologist. COMPARISON: CT NECK CHEST ABD PEL W 07/09/2021 1:57 PM FINDINGS: Lungs: Multiple pulmonary nodules with surrounding ground-glass opacity of increased from previous. Nodules in the perihilar left upper lobe have small central cavitary components, new from previous. No specific consolidation is observed. No significant endobronchial mucus observed. Pleural spaces: Unremarkable. No pneumothorax. No pleural effusion. Heart: Moderate coronary artery calcifications. Negative for cardiomegaly. Aorta: No aortic aneurysm. Mild plaque. Lymph nodes: Mild paratracheal and subcarinal lymphadenopathy, similar to previous. Liver: Multiple liver masses are present, increased in size and number previous. Bones/joints: Expansile lytic tumor at the T4 vertebral body extends into the right pedicle, with mild narrowing of the spinal canal. A compression fracture at T4 is new from previous. Lytic tumor is also observed at T5, T6, the T7 spinous process, T10, T12, and L1. A mildly expansile destructive lesion is noted at the anterior left 8th rib. Additional bony lesions are likely. Soft tissues: Unremarkable. IMPRESSION: 1. Multiple pulmonary nodules progressed from previous. Metastatic neoplasm favored. Inflammatory nodule is not excluded. 2. Progression of liver metastases. 3. Multiple bone metastases. 4. Mild compression fracture at T4, new from previous. Dictated and Authenticated by: Rivas Hansen MD. Ordering:YONG Hathaway MD
--- NOTE | 2021-07-17 22:13 | NUR.NOTE ---
Covid result ETA 1.5 hoursNursing Note:
[2021-07-17] MEDS: Acetaminophen Solution 650 MG/20.3 ML CUP PO (22:39)
[2021-07-17 23:29] LABS: COVID-19 PCR Negative (Negative)
--- NOTE | 2021-07-18 15:36 | NUR.NOTE ---
attempted to call patient with COVID results. mailbox is full. unable to leave message. Nursing Note:
--- NOTE | 2021-07-20 10:59 | NUR.NOTE ---
negative covid result mailed to pt. could not reach by phone.Nursing Note:
== END 2021-07-17 22:58 | disposition home or self-care (01) ==
PROVIDERS: Emergency Provider Emergency Medicine; PCP Nurse Practitioner Family
DX: R06.02 Shortness of breath (principal); R05.8 Other specified cough; C06.9 Malignant neoplasm of mouth, unspecified; Z20.822 Contact with and (suspected) exposure to COVID-19; Z03.818 Encounter for observation for suspected exposure to other biological agents ruled out
CPT/HCPCS: 36415; 70491; 80053; 82805; 87635; 99285; 71260; 83735; 85025; 85610; 85730; 99284; J3490

== ENCOUNTER 2021-07-18 02:16 | Outpatient (RCR) | payer MEDICARE, SELFPAY ==
[2021-07-08] MEDS: Heparin 500 UNITS/5 ML SYRINGE IV (09:37)
[2021-07-08] MEDS: Normal Saline Flush 10 ML SYR IVP (09:37)
[2021-07-08 09:43] LABS: Abs Immature Grans 0.14 10^3/uL (0.0-0.06); Absolute Basophil Count 0.02 10^3/uL (0.0-0.2); Absolute Eosinophil Count 0.03 10^3/uL (0.0-0.7); Basophils % 0.1; Eosinophils % 0.2; HCT 44.1 % (40.0-50.0); HGB 13.6 g/dL (13.5-17.5); Immature Grans % 0.9; Lymphocytes % 3.5; MCH 29.6 pg (27.0-33.0); MCHC 30.8 % (32.0-36.0); MCV 95.9 fL (80-95); MPV 10.3 fL (8.0-11.0); Monocytes % 4.8; Neutrophils % 90.5; Nucleated RBC 0 %; Platelet Count 361 10^3/uL (130-400); RDW-SD 46.5 fL; WBC 16.12 10^3/uL (4.4-10.8)
[2021-07-08 09:44] LABS: Absolute Lymphocyte Count 0.56 10^3/uL (1.2-3.4); Absolute Monocyte Count 0.77 10^3/uL (0.1-0.8); Absolute Neutrophil Count 14.59 10^3/uL (1.2-6.7)
[2021-07-08 10:12] LABS: ALT 49 U/L (16-63); AST 28 U/L (15-37); Alkaline Phosphatase 115 U/L (46-116); Anion Gap 4.4 mmol/L (3-11); BUN 56 mg/dL (7-18); Bilirubin, Total 0.4 mg/dL (0.2-1.0); CO2 39.6 mmol/L (21.0-32.0); CREATININE 1.9 mg/dL (0.70-1.30); Chloride 109 mmol/L (98-107); Estimated GFR 35.12 (mL/min/1.73m2); Glucose 160 mg/dL (74-106); Magnesium 2.1 mg/dL (1.8-2.4); Sodium 153 mmol/L (136-145); Total Protein 7.6 g/dL (6.4-8.2)
[2021-07-08 10:26] LABS: Calcium 17.2 mg/dL (8.5-10.1)
[2021-07-08 10:27] LABS: Potassium 2.8 mmol/L (3.5-5.1)
== END 2021-08-04 23:59 | disposition home or self-care (01) ==
LOC: INF 02:16
PROVIDERS: PCP Nurse Practitioner Family; Visit Provider Nurse Practitioner Family
DX: C01 Malignant neoplasm of base of tongue (principal); Z45.2 Encounter for adjustment and management of vascular access device
CPT/HCPCS: 36591; 80053; 83735; 85025